=== PATIENT | female | born 1935 | race African-American/Black ===

== ENCOUNTER 2019-01-15 11:13 | Inpatient (IN) | payer OTHER ==
[~2019-01-15] VITALS: Ht 177.8 cm; Wt 86.0 kg
[2019-01-15] VITALS (23 sets, daily range): BP systolic 112–224; BP diastolic 60–93
[2019-01-15] MEDS ORDERED: LORazepam 2MG/ML-1ML VIAL ONE (11:43)
[2019-01-15] MEDS ORDERED: SUCCINYLCHOLINE CHLORIDE 20 MG/ML 10ML VIAL IV ONE (11:44)
[2019-01-15] MEDS ORDERED: MIDAZOLAM DRIP 50 mg/50mL 50 ML IV ONE (11:44)
[2019-01-15] MEDS ORDERED: ETOMIDATE (2MG/ML) 20ML VIAL IV ONE (11:44)
[2019-01-15 12:06] LABS: Basophils # (auto) 0 uL; Eosinophils # (auto) 0 uL; Hematocrit 45.1 % (36.0-46.0); Hemoglobin 14.3 g/dL (12.2-16.2); Lymphocytes # (auto) 1.1 uL; Mean Corpuscular Hgb Conc. 31.8 g/dL (32.0-36.0); Monocytes % (auto) 11.7 % (0.0-12.0)
[2019-01-15 12:08] LABS: Basophils % (auto) 0.1 % (0.0-2.0); Lymphocytes % (auto) 8.6 % (10.0-50.0); Mean Corpuscular Hemoglobin 25.1 pg (28.0-32.0); Monocytes # (auto) 1.5 uL; Neutrophils # (auto) 9.9 uL; Neutrophils % (auto) 79.6 % (37.0-80.0); Nucleated Red Blood Cells % 0.2 %; Platelet Count (auto) 145 10^3/uL (140-450); Red Blood Cells 5.71 10^6/uL (4.0-5.20); Red Cell Distribution Width 14.8 % (11.8-14.3); White Blood Cell 12.4 10^3/uL (4.4-10.8)
[2019-01-15 12:27] LABS: Lactic Acid w/Reflex 7.6 mmol/L (0.4-2.0)
[2019-01-15] MEDS ORDERED: cefTRIAXone 1GM/50ML D5W 50 ML IV ONE ×2 (12:30→15:30)
[2019-01-15 12:35] LABS: INR 1.04 (0.9-1.15); Partial Thromboplastin Time 24.8 sec (23.64-32.05)
[2019-01-15 12:54] LABS: Anion Gap 18 (5-15); Blood Urea Nitrogen 26 mg/dL (7-18); Carbon Dioxide 19 mmol/L (21-32); Chloride 101 mmol/L (98-107); Glucose 199 mg/dL (74-106); Potassium 3.1 mmol/L (3.5-5.1); Sodium 138 mmol/L (136-145)
[2019-01-15 12:55] LABS: Alanine Aminotransferase 23 U/L (13-56); Albumin 4.2 g/dL (3.4-5.0); Alkaline Phosphatase 88 U/L (45-117); Aspartate Aminotransferase 33 U/L (15-37); BUN/Creatinine Ratio 12.9; Bilirubin, Total 1.4 mg/dL (0.2-1.0); Calcium 9.8 mg/dL (8.5-10.1); GFR African American 30 mL/min; GFR Non-African American 25 mL/min; Magnesium 1.6 mg/dL (1.6-2.6)
[2019-01-15 12:56] LABS: Blood Alcohol < 3.0 mg/dL (0-5)
[2019-01-15] MEDS ORDERED: GABA100C9 PO (13:12)
[2019-01-15] MEDS ORDERED: METH500T6 PO (13:12)
[2019-01-15] MEDS ORDERED: LISI10TA6 (13:12)
[2019-01-15] MEDS ORDERED: SULFAMETHOXAZOLE-TMP (13:12)
[2019-01-15] MEDS ORDERED: [UNRECOGNIZED DRUG - CODE] (13:12)
[2019-01-15] MEDS ORDERED: MAGN250T13 (13:12)
[2019-01-15] MEDS ORDERED: METO-159 (13:12)
[2019-01-15] MEDS ORDERED: PROAIR (13:12)
[2019-01-15] MEDS ORDERED: OXYB5TAB61 (13:12)
[2019-01-15] MEDS ORDERED: THEO400T8 (13:12)
[2019-01-15] MEDS ORDERED: LOVA40TA72 (13:12)
[2019-01-15] MEDS ORDERED: ALLO100T (13:12)
[2019-01-15] MEDS ORDERED: ESCI10TA53 (13:12)
[2019-01-15] MEDS ORDERED: SODIUM CHLORIDE 0.9% 2,000 ML IV ONE (13:15)
[2019-01-15] MEDS ORDERED: PROPOFOL 100 ML IV ONE (13:52)
[2019-01-15] MEDS ORDERED: PROPOFOL 10 MG/ML 20 ML IV ONE (14:00)
[2019-01-15 14:26] LABS: Urine Amorphous Crystal FEW /hpf (None Seen); Urine Bacteria MOD /hpf (None Seen); Urine Blood 2+ /uL (Negative); Urine Hyaline Cast MOD /lpf (0 - 2); Urine Mucus FEW (None Seen); Urine Specific Gravity 1.012 (1.001-1.035); Urine WBC 137 /hpf (0 - 5); Urine WBC Clumps PRESENT /hpf (None Seen)
[2019-01-15 15:02] LABS: Amphetamine Screen, Urine NEGATIVE (NEGATIVE); Barbiturate Scree,Urine NEGATIVE (NEGATIVE); Benzodiazephine Screen, Urine POSITIVE (NEGATIVE); Cannabinoid Screen, Urine NEGATIVE (NEGATIVE); Cocaine Screen, Urine NEGATIVE (NEGATIVE); Opiate Scree,Urine NEGATIVE (NEGATIVE); Phencyclidine Screen, Urine NEGATIVE (NEGATIVE)
[2019-01-15] MEDS ORDERED: MORPHINE SULFATE 4 MG/ML SYR/VIAL IV PRN (15:30)
[2019-01-15] MEDS ORDERED: PROMETHAZINE HCL 25 MG/ML 1ML IV PRN (15:30)
[2019-01-15] MEDS ORDERED: METOPROLOL TARTRATE 25 MG TAB NG SCH (15:30)
[2019-01-15] MEDS ORDERED: LACTULOSE 20Gm/30ML SOLN PO PRN (15:30)
[2019-01-15] MEDS ORDERED: DEXTROSE (50%) 50ML SYRG IV PRN (15:30)
[2019-01-15] MEDS ORDERED: LORazepam 2MG/ML-1ML VIAL IV PRN ×2 (15:30)
[2019-01-15] MEDS ORDERED: NITROGLYCERIN 0.4 MG SL TAB SL PRN (15:30)
[2019-01-15] MEDS ORDERED: MORPHINE SULF INJ 2 MG/ML SYRINGE 1ML IV PRN (15:30)
[2019-01-15] MEDS ORDERED: ACETAMINOPHEN 650 MG RECT SUPP PR ONE ×2 (15:31→15:45)
[2019-01-15 16:22] LABS: Salicylate < 1.7 mg/dL (2.8-20.0)
[2019-01-15 16:28] LABS: Acetaminophen < 2.0 ug/mL (10-30)
--- NOTE | 2019-01-15 17:55 | NUR ---
Pt being admitted to ICU: BREANNA MONTEZ admitted to ICU via gurney on desk monitor, and portable 02. Patient transfered to bed, connected to ICU monitoring & on ventilator, and weighed by [facility]. NOTE: Patient intubated and sedated, no family at bedside. See Physical assessment for further details. Padded rails on bed.
[2019-01-15] MEDS: SODIUM CHLORIDE 0.9% 1,000 ML IV SCH (18:35)
[2019-01-15] MEDS: ACCU-CHEK COMFORT CURVE STRIP VI SCH (18:47)
[2019-01-15] MEDS: InsuLIN REG 1unit/0.01ml Soln (100units/ml) SC SCH (18:48)
[2019-01-15] MEDS: MIDAZOLAM DRIP 50 mg/50mL 50 ML IV SCH (19:04)
--- NOTE | 2019-01-15 19:06 | NUR ---
Endorsed care to ABHISHEK Delgado.
[2019-01-15] MEDS: PROPOFOL 100 ML IV SCH (20:23)
--- NOTE | 2019-01-15 20:50 | NUR ---
CENTRAL LINE IN THE LEFT INTRAJUGULAR VEIN INSERTED ASEPTICALLY BY DR. GRICELDA FARRIS ASSISTED BY DR. Rossy MELTON'Shante BY XRAY TO CHECK FOR PLACEMENT.
--- NOTE | 2019-01-15 22:15 | NUR ---
BLOOD DRAW FROM THE CENTRAL LINE DONE AND SPECIMEN SENT TO LAB.
[2019-01-15] MEDS: METOPROLOL TARTRATE 25 MG TAB PO SCH (22:20)
--- NOTE | 2019-01-15 23:09 | NUR ---
HYGIENE COMPLETE LINENS CHANGED. REPOSITIONED FOR COMFORT.
[2019-01-16] VITALS (84 sets, daily range): BP systolic 71–195; BP diastolic 49–93
--- NOTE | 2019-01-16 00:07 | NUR ---
TEMP 100.2, COOLING MEASURES DONE
[2019-01-16] MEDS ORDERED: ALBUTEROL SULF 2.5 MG/0.5ML(0.5%) NEB SOLN NEB PRN (00:45)
--- NOTE | 2019-01-16 00:47 | NUR ---
DR. HASKINS AT BEDSIDE
[2019-01-16 04:36] LABS: Basophils # (auto) 0 uL; Eosinophils # (auto) 0 uL; Lymphocytes # (auto) 0.7 uL; Monocytes # (auto) 1.1 uL
[2019-01-16 04:38] LABS: Hematocrit 37.4 % (36.0-46.0); Lymphocytes % (auto) 7.4 % (10.0-50.0); Mean Corpuscular Hemoglobin 25.4 pg (28.0-32.0); Mean Corpuscular Hgb Conc. 32.2 g/dL (32.0-36.0); Mean Corpuscular Volume 78.7 fL (80.0-100.0); Monocytes % (auto) 10.8 % (0.0-12.0); Neutrophils % (auto) 81.8 % (37.0-80.0); Platelet Count (auto) 90 10^3/uL (140-450); Red Blood Cells 4.75 10^6/uL (4.0-5.20); Red Cell Distribution Width 14.7 % (11.8-14.3); White Blood Cell 9.8 10^3/uL (4.4-10.8)
[2019-01-16 04:53] LABS: Albumin 3.1 g/dL (3.4-5.0); Calcium 8.6 mg/dL (8.5-10.1)
[2019-01-16 04:55] LABS: BUN/Creatinine Ratio 19.3
[2019-01-16 04:58] LABS: Bilirubin, Total 0.8 mg/dL (0.2-1.0); Total Protein 5.9 g/dL (6.4-8.2)
[2019-01-16 05:10] LABS: Potassium 2.9 mmol/L (3.5-5.1)
--- NOTE | 2019-01-16 05:21 | NUR ---
returned call Alis ANTOINE returned call, updated on patient status and reason for call re: k 2.9, temp 101.1, orders received. Continue care.
[2019-01-16] MEDS ORDERED: ACETAMINOPHEN 650 mg PER 20 mL UD GT PRN (05:30)
[2019-01-16] MEDS: ACCU-CHEK COMFORT CURVE STRIP VI SCH ×4 (05:37→18:06)
--- NOTE | 2019-01-16 05:50 | NUR ---
PAGED THE HOSPITALIST FOR ELEVATED BP. AWAITING CALL BACK.
--- NOTE | 2019-01-16 05:53 | NUR ---
CXR RESULT JUST CAME OUT AFTER PLACEMENT OF LEFT IJ CENTRAL LINE AND REFERRED RESULT, HE SAID , PREPARE THE KIT AND HE WILL INSERT ANOTHER LINE.
[2019-01-16] MEDS: InsuLIN REG 1unit/0.01ml Soln (100units/ml) SC SCH ×4 (06:00→18:00)
[2019-01-16] MEDS: POTASSIUM CHL 20MEQ/100ML 100 ML IV SCH ×3 (06:08→10:19)
--- NOTE | 2019-01-16 06:45 | NUR ---
DR. FARRIS AT BEDSIDE FOR CENTRAL LINE PLACEMENT.
--- NOTE | 2019-01-16 07:30 | NUR ---
REPORT RECEIVED FROM SPINDLE MAKER NURSE. PATIENT RESTING IN BED INTUBATED AND SEDATED. RESPIRATIONS EVEN AND UNLABORED. NO SIGNS IF ACUTE DISTRESS NOTED. DR DUBON AT BEDSIDE FOR CENTRAL LINE PLACEMENT.
--- NOTE | 2019-01-16 08:00 | NUR ---
TELEPHONE CONSENTS OBTAINED FROM PT'S DAUGHTERS MARIELLA AND BREANNA RENE WITNESSED BY LEONARD AND LUIS FERNANDO GORDON.
[2019-01-16] MEDS: cefTRIAXone 1GM/50ML D5W 50 ML IV SCH (08:41)
[2019-01-16] MEDS ORDERED: ENOXAPARIN SOD 40 MG/0.4 ML SYRINGE SC SCH (10:00)
[2019-01-16] MEDS: PROPOFOL 100 ML IV SCH ×2 (10:14→22:28)
[2019-01-16] MEDS: SODIUM CHLORIDE 0.9% 1,000 ML IV SCH ×3 (10:14→21:04)
[2019-01-16] MEDS: METOPROLOL TARTRATE 25 MG TAB PO SCH ×2 (10:23→22:28)
[2019-01-16] MEDS: NITROGLYCERIN 0.2MG/HR TOPICAL PATCH TD SCH (10:34)
--- NOTE | 2019-01-16 11:45 | NUR ---
BED LABORER AT BEDSIDE.
--- NOTE | 2019-01-16 12:25 | NUR ---
EEG COMPLETED AT BEDSIDE. ABHISHEK WILLIAMSON.
--- NOTE | 2019-01-16 13:38 | NUR ---
DR LAKE AT BEDSIDE TO ASSESS PATIENT AND DISCUSS PLAN OF CARE. MD INFORMED OF PATIENTS IV STATUS. PER MD OBTAIN PICC LINE CONSULT. MD ADJUST ANTIBIOTICS, ALL ORDERS NOTED IN CHART.
--- NOTE | 2019-01-16 14:36 | NUR ---
2 NURSE CONSENT FROM DAUGHTER MARIELLA VIA TELEPHONE FOR PICC LINE PLACEMENT.
[2019-01-16 14:44] LABS: INR 1.04 (0.9-1.15)
--- NOTE | 2019-01-16 14:57 | NUR ---
DR MERA AT BEDSIDE TO ASSESS PATIENT AND DISCUSS PLAN OF CARE.
[2019-01-16] MEDS ORDERED: GENTAMICIN PER PHARMACY 0 ML IV SCH (15:00)
[2019-01-16] MEDS ORDERED: GENTAMICIN SULFATE 160 MG in D5W 5% 100 ML IV ONE (15:00)
--- NOTE | 2019-01-16 16:00 | NUR ---
REMOVED NITRO PATCH FROM RIGHT ARM DUE TO DECREASED BLOOD PRESSURE. WILL CONTINUE TO MONITOR.
--- NOTE | 2019-01-16 18:45 | NUR ---
PICC LINE NURSE AT BEDSIDE
[2019-01-16] MEDS: MIDAZOLAM DRIP 50 mg/50mL 50 ML IV SCH (19:04)
--- NOTE | 2019-01-16 19:30 | NUR ---
CARE ASSUMED. ASSESSMENT: VENTED AND SEDATED ON DIPRIVAN AT 17 MCG/KG/MIN., VENT - 30% FIO2, PEEP +, RATE 14/AC MODE. SATS 97%. LUNG - CLEAR LEFT LUNG FIELD, COARSE RIGHT LOWER BASE. ETT SECRETIONS - THICK, LIGHT CREAMY, GREEN SECRETIONS. FOUL SMELL ORAL SECRETIONS. CARDIAC - HR 89, SINUS, SBP 110'S. NS AT 100CC/HR G.I - NGT TO LIS WITH CLEAR DRAINAGE PRESENT. HYPOACTIVE BOWEL SOUNDS. NO B.M TONIGHT G.U - GODWIN - JANICE, CLEAR URINE. SKIN - COOL TO TOUCH. TEMP 100.4 RECTAL PICC LINE NURSE IN ROOM. IV SITE TO RAC #20, LEAKING, IV SITE TO LH #20 PUFFY. WILL DISCONTINUE WHEN PICC IN PLACE. WILL CONTINUE TO MONITOR
[2019-01-16] MEDS ORDERED: LIDOCAINE 1% (LOCAL ANESTH.) PF 5ml SDV ID ONE (19:45)
--- NOTE | 2019-01-16 20:18 | NUR ---
PICC line placement Patient/Patient significant other educated on need for PICC line placement. All risks and benefits explained and all questions and concerns addressed prior to procedure. Noted past medical history and allergies with no contraindications. INR and Plt counts within acceptable range. 5 fr PICC line inserted via brachial vein using [employer] US and Tip Location System. Sterile technique with maximum barrier precautions utilized. Blood return obtained from each of triple lumens and each flushed easily with NS using proper technique. PICC secured with Stat-lock; biodisc and occlusive dressing applied. Stat portable chest x-ray obtained for PICC tip placement. *Baseline Arm Circumference 37cm
--- NOTE | 2019-01-16 20:18 | NUR ---
OK to use PICC line Xray completed. .
--- NOTE | 2019-01-16 20:30 | NUR ---
PROPOFOL AND NS TRANSFERRED TO PICC LINE TO LAC.
[2019-01-16] MEDS: SODIUM CHLOR 0.9% PF (SALINE LOCK) 10ML VIAL/SYR IV SCH (21:52)
--- NOTE | 2019-01-16 22:30 | NUR ---
IV SITE TO RAC DISCONTINUED
--- NOTE | 2019-01-16 23:30 | NUR ---
CRITICAL - TROPONIN - 1.23,ELEVATED. ELINA GARCIA NOTIFIED.
[2019-01-17] VITALS (95 sets, daily range): BP systolic 110–180; BP diastolic 55–123
[2019-01-17] MEDS: SODIUM CHLORIDE 0.9% 1,000 ML IV SCH ×2 (03:16→14:50)
[2019-01-17 04:43] LABS: Basophils # (auto) 0 uL; Basophils % (auto) 0.1 % (0.0-2.0); Eosinophils # (auto) 0 uL; Lymphocytes # (auto) 0.8 uL; Lymphocytes % (auto) 9.7 % (10.0-50.0); Monocytes # (auto) 0.8 uL
[2019-01-17 04:45] LABS: Eosinophils % (auto) 0.3 % (0.0-7.0); Hematocrit 29.2 % (36.0-46.0); Hemoglobin 9.6 g/dL (12.2-16.2); Mean Corpuscular Hemoglobin 25.7 pg (28.0-32.0); Monocytes % (auto) 8.9 % (0.0-12.0); Neutrophils # (auto) 6.9 uL; Platelet Count (auto) 76 10^3/uL (140-450); Red Blood Cells 3.75 10^6/uL (4.0-5.20); Red Cell Distribution Width 14.7 % (11.8-14.3); White Blood Cell 8.6 10^3/uL (4.4-10.8)
[2019-01-17 05:42] LABS: Anion Gap 10 (5-15); BUN/Creatinine Ratio 23.3; Blood Urea Nitrogen 35 mg/dL (7-18); Carbon Dioxide 20 mmol/L (21-32); Chloride 111 mmol/L (98-107); GFR African American 43 mL/min; GFR Non-African American 35 mL/min; Glucose 89 mg/dL (74-106); Potassium 3.3 mmol/L (3.5-5.1); Sodium 141 mmol/L (136-145)
[2019-01-17 05:43] LABS: Calcium 8.2 mg/dL (8.5-10.1)
[2019-01-17] MEDS: InsuLIN REG 1unit/0.01ml Soln (100units/ml) SC SCH ×4 (05:55→18:20)
[2019-01-17] MEDS: ACCU-CHEK COMFORT CURVE STRIP VI SCH ×4 (05:55→18:39)
--- NOTE | 2019-01-17 06:13 | NUR ---
REPORT TO CORETTA WEISS.
--- NOTE | 2019-01-17 06:15 | NUR ---
OPENING SHIFT NOTE REPORT RECEIVED FROM ASSOCIATE PROFESSOR OF KINESIOLOGY RN, MORNING ASSESSMENT PERFORMED AND DOCUMENTED. PATIENT MECHANICALLY VENTILATED, RESPIRATIONS EVEN AND UNLABORED - BILATERAL UPPER AND LOWER LUNG SOUNDS CLEAR. PATIENT RESPONSIVE TO LIGHT PAIN, FACIAL GRIMACING WHEN PERFORMING COMFORT MEASURES. VSS AND DOCUMENTED. BOWEL SOUNDS HYPOACTIVE, GODWIN CATHETER PATENT AND DRAINING CLEAR/YELLOW URINE TO GRAVITY. SCD'S ACTIVE - SEIZURE, FALL AND SAFETY PRECAUTIONS IN PLACE.
--- NOTE | 2019-01-17 08:22 | NUR ---
PAGED CARDIOLOGY DR CURRY TO REMIND OF CARDIOLOGY CONSULT, AWAITING RESPONSE.
[2019-01-17] MEDS: cefTRIAXone 1GM/50ML D5W 50 ML IV SCH (08:31)
[2019-01-17] MEDS: SODIUM CHLOR 0.9% PF (SALINE LOCK) 10ML VIAL/SYR IV SCH ×2 (08:33→22:00)
[2019-01-17] MEDS: METOPROLOL TARTRATE 25 MG TAB PO SCH ×2 (08:33→23:49)
[2019-01-17] MEDS: NITROGLYCERIN 0.2MG/HR TOPICAL PATCH TD SCH (08:38)
--- NOTE | 2019-01-17 08:53 | NUR ---
RETURN CALL FROM CARDIOLOGY/CONTACT DR HASKINS RETURN CALL FROM DR CURRY - DR CURRY WILL SEE PATIENT LATER TODAY. SPOKE WITH DR HASKINS, UPDATED ON PATIENT'S STATUS, LABS, MORNING, DRIPS AND PENDING CARDIOLOGY CONSULT. NO ORDERS GIVEN AT THIS TIME.
[2019-01-17] MEDS: PROPOFOL 100 ML IV SCH (09:19)
[2019-01-17] MEDS ORDERED: ENOXAPARIN SOD 40 MG/0.4 ML SYRINGE SC SCH (10:00)
--- NOTE | 2019-01-17 11:14 | NUR ---
NUTRITION ASSESSMENT NOTES Please refer to link notes of nutrition screen form filed under the intervention section of the plan of care for further details. Est. Needs: 1650 kcal to 2050 kcal (20-25 kcal/kgBW), 66 gms to 83 gms pro (0.8-1.0 gms/kgBW). Will continue to monitor pertinent labs and reassess nutrient need prn Thank you. Addendum: 01/17/19 at [address] Amended: Links added.
--- NOTE | 2019-01-17 11:43 | NUR ---
Family updated on pt status Family of BREANNA MONTEZ updated on patient's status and condition after password verification. All questions and concerns addressed. Sebastián, patient's son verbalized understanding.
--- NOTE | 2019-01-17 11:45 | NUR ---
WOUND CARE NOTE: IN TO SEE PATIENT AT THIS TIME PER WOUND CARE CONSULT REQUEST. PATIENT WAS ADMITTED TO [facility] WITH DIAGNOSIS OF SEPSIS, METABOLIC ENCEPHALOPATHY. PATIENT IS INTUBATED, SEDATED, APPEARS TO BE IN NO PAIN USING DICKENS-PAUL PAIN SCALE. PATIENT IS NOTED TO HAVE VITILIGO, WITH HYPOPIGMENTATION TO VARIOUS AREAS ON FACE/TRUNK, LIMBS. SHE HAS NO WOUNDS, OR NON BLANCHABLE SKIN AREAS. PATIENT IS WOUND FREE. SHE WOULD RECOMMEND WITH FREQUENT TURN SCHEDULE Q 2 HOURS, PRN CONDITION PERMITS, WITH PRESSURE REDISTRIBUTION USING PILLOWS/WEDGES, BID/PRN APPLICATION WITH MOISTURE BARRIER CREAM, OPTIFOAM GENTLE SACRAL DRESSING, DIETARY CONSULT FOR LOW CASSANDRA/INTUBATION, CONTINUED MONITORING BY WOUND CARE TEAM. SKIN/WOUND CARE PLAN IMPLEMENTED.
--- NOTE | 2019-01-17 13:50 | NUR ---
COMFORT PATIENT CLEANSED, PARTIAL BEDDING CHANGED AND GOWN. PATIENT TOLERATED WELL.
--- NOTE | 2019-01-17 14:13 | NUR ---
[facility] UPDATE CALL RECEIVED FROM [facility] CASE MANAGEMENT AT [facility] TO OBTAIN PATIENT STATUS, VS AND DRIPS.
--- NOTE | 2019-01-17 16:27 | NUR ---
FAMILY AT BEDSIDE/JEWELRY RETURNED TO FAMILY PATIENT'S DAUGHTER AND GRANDDAUGHTER AT BEDSIDE, UPDATED ON PATIENT'S STATUS. BOTH VERBALIZED UNDERSTANDING. ALL PATIENT'S JEWELRY RETURNED TO FAMILY FOR SAFE KEEPING.
[2019-01-17] MEDS ORDERED: GENTAMICIN SULFATE 160 MG in D5W 5% 100 ML IV SCH (16:30)
--- NOTE | 2019-01-17 17:18 | NUR ---
CARDIOLOGY/HOSPITALIST AT BEDSIDE BOTH DOCTOR'S UPDATED ON PATIENT'S STATUS - BOTH DOCTOR'S DISCUSSED PLAN OF CARE WITH DAUGHTER'S AND GRANDDAUGHTER. ALL VERBALIZED UNDERSTANDING. AFTER REVIEWING CHART AND ASSESSING PATIENT, DR CURRY AUTHORIZED CPAP TRIAL TOMORROW MORNING. CARDIOLOGY WORKUP AT A LATER TIME.
[2019-01-17] MEDS: MIDAZOLAM DRIP 50 mg/50mL 50 ML IV SCH (19:04)
--- NOTE | 2019-01-17 19:14 | NUR ---
END OF SHIFT REPORT PATIENT CARE ENDORSED TO WEB MASTER RN. VSS AND DOCUMENTED.
--- NOTE | 2019-01-17 19:45 | NUR ---
ASSESSMENT: REMAINS VENTILATED AND SEDATED ON PROPOFOL. RESPONDS TO NOXIOUS STIMULI, GRIMACES, (+) COUGH. PUPILS 3+ BILAT. LUNGS COARSE BILATERALLY. ETT - CREAMY, LIGHT YELLOW, MODERATE AMT. MODERATE AMT. ORAL SECRETIONS. ORAL CARE PROVIDED. REPOSITIONED. CARDIAC - HR 70-80'S, SBP 150'S. NO ECTOPY ABDOMEN - LARGE, (+) B.S. NO B.M TONIGHT. G.U - GODWIN CATH, CLEAR YELLOW URINE. IV - NS CONTINUES AT 100CC/HR AND PROPOFOL THRU PICC LINE TO ADRIENNE. SKIN - INTACT. WILL CONTINUE TO MONITOR.
--- NOTE | 2019-01-17 20:00 | NUR ---
PULSE - LEFT BELOW KNEE AREA WITH DOPPLER Addendum: 01/18/19 at 0029 by Nkechi Stiles RN WRONG ENTRY
[2019-01-17] MEDS: POTASSIUM CHL 20MEQ/100ML 100 ML IV SCH (23:51)
[2019-01-17] MEDS: MAGNESIUM SULFATE 1GM/100ML 100 ML IV SCH (23:51)
[2019-01-18] VITALS (94 sets, daily range): BP systolic 142–196; BP diastolic 58–107
[2019-01-18] MEDS: POTASSIUM CHL 20MEQ/100ML 100 ML IV SCH (00:58)
[2019-01-18] MEDS: MAGNESIUM SULFATE 1GM/100ML 100 ML IV SCH ×2 (00:58→02:09)
--- NOTE | 2019-01-18 02:00 | NUR ---
EYES OPEN, DOES NOT TRACK, DOES NOT FOLLOW COMMANDS AT THIS TIME. MOVES FEET SPONTANEOUSLY.
[2019-01-18] MEDS: SODIUM CHLORIDE 0.9% 1,000 ML IV SCH ×2 (04:21→13:28)
[2019-01-18 04:28] LABS: Basophils # (auto) 0 uL; Basophils % (auto) 0.4 % (0.0-2.0); Eosinophils # (auto) 0.1 uL; Eosinophils % (auto) 0.9 % (0.0-7.0); Hemoglobin 9.1 g/dL (12.2-16.2); Lymphocytes # (auto) 0.7 uL; Lymphocytes % (auto) 9.1 % (10.0-50.0); Mean Corpuscular Hemoglobin 25.8 pg (28.0-32.0); Mean Corpuscular Hgb Conc. 32.5 g/dL (32.0-36.0); Mean Corpuscular Volume 79.4 fL (80.0-100.0); Monocytes # (auto) 0.6 uL; Monocytes % (auto) 8.4 % (0.0-12.0); Neutrophils # (auto) 6.2 uL; Neutrophils % (auto) 81.2 % (37.0-80.0); Platelet Count (auto) 73 10^3/uL (140-450); Red Blood Cells 3.53 10^6/uL (4.0-5.20); Red Cell Distribution Width 15.3 % (11.8-14.3); White Blood Cell 7.6 10^3/uL (4.4-10.8)
[2019-01-18 04:40] LABS: INR < 0.93 (0.9-1.15); Partial Thromboplastin Time 27.9 sec (23.64-32.05)
[2019-01-18 04:48] LABS: Albumin 2.4 g/dL (3.4-5.0); BUN/Creatinine Ratio 29.9; Calcium 8.5 mg/dL (8.5-10.1); Potassium 3.8 mmol/L (3.5-5.1)
[2019-01-18 04:51] LABS: Bilirubin, Total 0.5 mg/dL (0.2-1.0); Total Protein 5.2 g/dL (6.4-8.2)
--- NOTE | 2019-01-18 05:30 | NUR ---
COMPLETE BED BATH. ORAL CARE, NOTED LARGE SORE TO RIGHT SIDE OF TONGUE.
[2019-01-18] MEDS: ACCU-CHEK COMFORT CURVE STRIP VI SCH ×4 (05:49→18:00)
[2019-01-18] MEDS: InsuLIN REG 1unit/0.01ml Soln (100units/ml) SC SCH ×4 (05:49→18:00)
--- NOTE | 2019-01-18 06:30 | NUR ---
CRITICAL - TROPONIN 0.524, DR. CURRY AWARE OF ELEVATED TROPONIN. VALUES TRENDING DOWN AT THIS TIME.
--- NOTE | 2019-01-18 07:19 | NUR ---
Respiratory note: RECEIVED PATIENT ON V21 V200 VENT ORALLY INTUBATED WITH AN 8.0 ETT SECURED VIA ITZEL AT THE 24CM MARKING AT THE LIP, AND MECHANICALLY VENTILATED WITH THE CHARTED SETTINGS. SPO2 97%, LUNG SOUNDS DIM T/O, SCANT AMOUNT OF THIN LIGHT AMEZQUITA SECRETIONS WHEN SUCTIONED. SKIN IS WARM/DRY TO THE OTUCH AND IS INTACT NEAR ITZEL SITE. THERE IS A SORE ON THE RIGHT SIDE OF PATIENTS TONGUE, ETT MOVED TO LEFT SIDE OF MOUTH. RN ONOFRE AWARE OF SORE. THERE IS AN OGT IN PLACE AND SECURED TO THE ETT. NON PITTING EDEMA NOTED IN UPPER EXTREMITIES. NO NEW CXR TO ASSESS AT THIS TIME. PATIENT IS UNRESPONSIVE TO VERBAL STIMULI, BUT DOES SHOW RESPONSE TO TACTILE STIMULI AND IS SEDATED ON A PROPOFOL DRIP. SHE IS RESTING COMFORTABLY AND TOLERATING VENT WELL. VENT PLUGGED INTO RED OUTLET AND ALL ALARMS ARE SET AND AUDIBLE. WILL CONTINUE TO ASSESS PATIENT WELL VENTILATOR FUNCTION. PRN MED-NEB NOT INDICATED.
--- NOTE | 2019-01-18 07:50 | NUR ---
ASSESSMENT PT RESTING IN BED WITH EYES CLOSED, RESPONDS TO PAINFUL STIMULI BUT NOT VERBAL. PT SEDATED ON DIPRIVAN DRIP WHILE INTUBATED. CURRENT VENT SETTINGS OF : 8 FR ETT /24 AT THE LIP, TV 500, AC 16, 30% FIO2 AND PEEP OF 5. LUNGS CLEAR THROUGHOUT. SUCTIONED ORALLY AND VIA ETT FOR CLEAR SECRETIONS. TELE SR 70. ABD SOFT WITH + BOWEL SOUNDS. LAST BM WAS YESTERDAY. GODWIN CATHETER DRAINING CLEAR YELLOW URINE. SCDS IN PLACE TO BLE. PT WITH IVF TO LUE 3 LUMEN PICC LINE, SITE BENIGN. . SACRUM CLEAR AND OPTIFOAM DRESSING IN PLACE. SORE NOTED ON TONGUE, PINK AND YELLOW IN COLOR. CONTINUE TO MONITOR.
--- NOTE | 2019-01-18 07:50 | NUR ---
PT TEACHING PT UNABLE TO BENEFIT FROM PT TEACHING AT THIS TIME SHE IS SEDATED WHILE ON THE VENTILATOR. Addendum: 01/18/19 at 1144 by Octavia Sanchez RN Amended: Links added.
--- NOTE | 2019-01-18 09:00 | NUR ---
DIPDEBBIE OFF PREP FOR THE CPAP TRIAL WHICH HAS BEEN OKAYED THIS AM BY DR HASKINS.
[2019-01-18] MEDS: cefTRIAXone 1GM/50ML D5W 50 ML IV SCH (10:15)
[2019-01-18] MEDS: SODIUM CHLOR 0.9% PF (SALINE LOCK) 10ML VIAL/SYR IV SCH ×2 (10:15→22:24)
[2019-01-18] MEDS: METOPROLOL TARTRATE 25 MG TAB PO SCH ×2 (10:16→22:25)
[2019-01-18] MEDS: NITROGLYCERIN 0.2MG/HR TOPICAL PATCH TD SCH (10:17)
--- NOTE | 2019-01-18 12:00 | NUR ---
PT STILL NOT AWAKE ENOUGH FOR THE CPAP TRIAL. CONTINUE TO MONITOR.
[2019-01-18] MEDS ORDERED: hydrALAZINE HCL 20 MG/ML VL ONE (14:50)
--- NOTE | 2019-01-18 14:58 | NUR ---
MEDICATED WITH HYDRALAZINE 10MG IV PER PRN ORDER FROM DR HASKINS. BP OF 185/67. CONTINUE TO MONITOR. Addendum: 01/18/19 at 2015 by Octavia Sanchez RN DISCUSSED WITH DR HASKINS THE FACT THAT PT STILL NOT WAKING UP ENOUGH FOR CPAP AND THAT SHE IS MOVINGHER LEFT SIDE BUT NOT HER RIGHT. HE ASSESSED CHA PT AND FOUND THE SAME BUT WAS ABLE TO GET HER TO FOLLOW SOME SIMPLE COMMANDS. HE ASKED THAT I CONTACT DR MERA TO SEE IF HE IS OKAY WITH CPAP TRIAL FOR THE PT OR IF HE WANTS A CT OF THE HEAD. PAGED DR MERA.
[2019-01-18] MEDS ORDERED: MIDAZOLAM HCL 1MG/1ML-2 ML VIAL IV PRN (15:00)
--- NOTE | 2019-01-18 17:13 | NUR ---
RECEIVED A CALL FROM DR MERA AND UPDATED HIM ON THE PT'S CURRENT CONDITION AND HE ORDERED A CT OF THEHEAD WITHOUT CONTRAST.
--- NOTE | 2019-01-18 17:44 | NUR ---
Respiratory note: CALLED TO BEDSIDE TO TRANSPORT PT TO CT. NOW TRANSPORTING PT TO CT WITH RN AND STARCH DUMPER. MANUALLY VENTILATED DURING TRANSPORT VIA AMBU BAG ON 100%. RETURNED TO ROOM AT 1812, PLACED BACK ON VENT, SAME SETTINGS. ET TUBE REMAINS SECURED.
--- NOTE | 2019-01-18 18:00 | NUR ---
PT TO CT DEPT FOR HEAD CT WITHOUT CONTRAST. PT TRANSPORTED VIA BED WITH PORTABLE ENDLESS TRACK VEHICLE MECHANIC IN PLACE AND BEING MANUALLY VENTILATED BY RT TIKA, AND ACCOMPANIED BY ABHISHEK WINCHESTER. FAMILY IN THE ROOM AND HAVE BEEN UPDAETD ON PT'S CURRENT CONDITION AND POC.
--- NOTE | 2019-01-18 18:51 | NUR ---
PARTIAL LOWER PT WITH PARTIAL LOWER , COMING OUT. REMOVED AND LACED IN A DENTURE CUP AT THE BEDSIDE.
--- NOTE | 2019-01-18 19:02 | NUR ---
[facility] RECEIVED A CALL FROM RADIOLOGY [facility] AND REVIEWED RESULTS OF PT'S HEAD CT WITHOUT CONTRAST. REPORT NOW IN COMPUTER. MARIUSZ MCCLOUD HERE AND MADE AWARE AND ALSO PAGED DR MERA TO NOTIFY. DR MCCLOUD NOTIFIED PT'S DAUGHTERS WHO WERE AT THE PT'S BEDSIDE VISITING.
[2019-01-18] MEDS: PROPOFOL 100 ML IV SCH (19:04)
[2019-01-18] MEDS: MIDAZOLAM DRIP 50 mg/50mL 50 ML IV SCH (19:04)
--- NOTE | 2019-01-18 19:30 | NUR ---
REPORT REPORT GIVEN TO ONOFRE PICKERING RN.
--- NOTE | 2019-01-18 19:35 | NUR ---
PAGED: PAGED PLACE FOR DR. DILL REGARDING POSS HIT PER DR. MCCLOUD PAGED PLACED FOR DR. CURRY REGARDING POSSIBLE NEED FOR YANG AND CAROTID U/S PER DR. MCCLOUD
[2019-01-18] MEDS ORDERED: LISINOPRIL 10 MG TAB PO ONE (20:00)
--- NOTE | 2019-01-18 21:00 | NUR ---
NO CALL BACK FROM DR. CURRY OR LACEY
--- NOTE | 2019-01-18 22:00 | NUR ---
NO CALL BACK FROM DR. MERA REGARDING CT RESULTS.
[2019-01-18] MEDS: hydrALAZINE HCL 25 MG TAB PO SCH (22:25)
[2019-01-19] VITALS (36 sets, daily range): BP systolic 112–194; BP diastolic 56–84
--- NOTE | 2019-01-19 | NUR ---
CONTINUES TO MOVE LEFT SIDE, DOES NOT SHOW ANY MOVEMENT WITH RIGHT EXTREMITIES.
[2019-01-19] MEDS: hydrALAZINE HCL 20 MG/ML VL IV PRN ×2 (01:37→12:43)
[2019-01-19] MEDS: InsuLIN REG 1unit/0.01ml Soln (100units/ml) SC SCH ×4 (01:41→18:00)
[2019-01-19] MEDS: SODIUM CHLORIDE 0.9% 1,000 ML IV SCH ×2 (02:00→09:28)
[2019-01-19 04:42] LABS: Basophils # (auto) 0 uL; Basophils % (auto) 0.2 % (0.0-2.0); Eosinophils # (auto) 0.1 uL; Eosinophils % (auto) 1.1 % (0.0-7.0); Hemoglobin 9.2 g/dL (12.2-16.2)
[2019-01-19 04:44] LABS: Hematocrit 28.3 % (36.0-46.0); Lymphocytes # (auto) 0.7 uL; Lymphocytes % (auto) 7.6 % (10.0-50.0); Mean Corpuscular Hemoglobin 25.7 pg (28.0-32.0); Mean Corpuscular Hgb Conc. 32.7 g/dL (32.0-36.0); Mean Corpuscular Volume 78.6 fL (80.0-100.0); Monocytes # (auto) 0.8 uL; Monocytes % (auto) 9.6 % (0.0-12.0); Neutrophils # (auto) 7.2 uL; Neutrophils % (auto) 81.5 % (37.0-80.0); Platelet Count (auto) 86 10^3/uL (140-450); Red Cell Distribution Width 14.6 % (11.8-14.3); White Blood Cell 8.8 10^3/uL (4.4-10.8)
[2019-01-19 04:57] LABS: Calcium 8.8 mg/dL (8.5-10.1); Potassium 3.3 mmol/L (3.5-5.1)
[2019-01-19] MEDS: hydrALAZINE HCL 25 MG TAB PO SCH ×3 (06:00→22:00)
[2019-01-19] MEDS: ACCU-CHEK COMFORT CURVE STRIP VI SCH ×4 (06:00→18:00)
--- NOTE | 2019-01-19 07:57 | NUR ---
PT. ABLE TO SQUEEZE RIGHT HAND AND MOVES RIGHT TOES ON COMMANDS
--- NOTE | 2019-01-19 08:27 | NUR ---
MD PHONE CALL: Spoke with Dr. Dennison, states that it is okay to CPAP when patient is awake.
--- NOTE | 2019-01-19 08:30 | NUR ---
INITIAL/ONGOING ASSESSMENT: Patient off of sedation, opens eyes to verbal stimuli, too drowsy to follow commands at this time. After removal of verbal stimulus, patient closes eyes and appears to be sleeping. Will coordinate CPAP trail with RT to be done when patient is fully awake. Noted to have movement to right upper and lower extremities, but is significantly weaker than the left side. Patient does not appear to be in any distress at this time.
[2019-01-19 08:38] LABS: Cholesterol 142 mg/dL (< 200); HDL Cholesterol 48 mg/dL (40-59); LDL Cholesterol 74 mg/dL (< 100); Triglycerides 126 mg/dL (< 150)
--- NOTE | 2019-01-19 10:25 | NUR ---
Respiratory note: placed pt on cpap trial at this time. pt response and is able to follow commands. pt tolerating well. weaning parameters and abg to be obtained. rn aware of changes.
--- NOTE | 2019-01-19 10:48 | NUR ---
Nutrition Consult and Follow-up Notes Wt.: 82.7 kg as of 01/16/19 Pt's intubated, no immediate family member at bedside during rounds earlier. Noted pt's off from sedation, currently NPO with EN support temporarily held this morning for possible CPAP trial. Noted pt's for active Wound, Pulmonary and Iggy/Oncology consults. Est. Needs: 1650 kcal to 2050 kcal (20-25 kcal/kgBW), 66 gms to 83 gms pro (0.8-1.0 gms/kgBW). Will continue to monitor pertinent labs and reassess nutrient need prn Labs: pertinent labs wnl today except for Cl 111 H, K 3.3 L, CO2 20 L; Tpro 5.9 L, Alb 3.1 L Skin: Gilmer scale 12, high risk, skin intact per brilliandeer looper. GI: Pt's no bowel activity since 01/15/19 per brilliandeer looper. PES: Increased nutrient needs r/t current medical condition aeb intubated, sedated, mild hypoalbuminemia, NPO Altered nutrition related lab values r/t current/chronic medical condition aeb hyperchloremia, hypokalemia, hypocapnia, elev. renal labs, Trop I, hypocalcemia, hypocalcemia and mild hypoalbuminemia Will continue to monitor NPO status, skin status, pertinent labs and weight trend. F/u in 2 to 3 days. Rec.: 1.) Advance gradually to oral diet when medically appropriate. 2.) If still NPO in next 36 hrs, consider alternate nutrition support if medically appropriate. 3.) EN support preferred with formula choice of Glucerna 1.2 Vineet @ 60 ml/hr goal rate as tolerated. 4.) If Albumin continues trending down, consider Prostat 1 pkt BID. 5.) Refer to RD for further nutrition educ. and weight monitoring upon discharge. 6.) Continue current plan of care. Thank you for this consult.
[2019-01-19] MEDS: NITROGLYCERIN 0.2MG/HR TOPICAL PATCH TD SCH (11:00)
--- NOTE | 2019-01-19 11:02 | NUR ---
FAMILY: Patient's daughter Raymond at bedside, updated on patient condition. Informed her that patient is stable, and that the POC for today is to perform CPAP trial. Assured her that Dr. Dennison is aware of the CT head results and after assessing her this morning felt as though it was safe to proceed with CPAP trial. Verbalized understanding.
[2019-01-19] MEDS: LISINOPRIL 10 MG TAB PO SCH (11:04)
[2019-01-19] MEDS: cefTRIAXone 1GM/50ML D5W 50 ML IV SCH (11:04)
[2019-01-19] MEDS: ASPirin 81 mg TAB PO SCH (11:05)
[2019-01-19] MEDS: METOPROLOL TARTRATE 25 MG TAB PO SCH ×2 (11:05→22:00)
[2019-01-19] MEDS: SODIUM CHLOR 0.9% PF (SALINE LOCK) 10ML VIAL/SYR IV SCH ×2 (11:05→22:23)
--- NOTE | 2019-01-19 11:20 | NUR ---
Respiratory note: WEANING PARAMETERS OBTAINED. VC 1250, NIF -28.5, RSBI 14, LEAK 250. ABG OBTAINED AND RESULTS WERE GIVEN TO .
--- NOTE | 2019-01-19 11:46 | NUR ---
Respiratory note: PT WAS EXTUBATED PER ORDERS. PT WAS PLACED ON COOL MIST AT 35% 8L/M. HR 100, RR 24, POX 97%, BREATH SOUNDS ARE COARSE. NO STRIDOR NOTED. PT HAS A WEAK COUGH. FAMILY AND RN AT BEDSIDE. WILL CONTINUE TO MONITOR PT.
--- NOTE | 2019-01-19 11:46 | NUR ---
EXTUBATION; Patient extubated by RT, placed on 35% cool mist mask. Patient with no respiratory distress, no stridor. Family present at bedside, instructed to discourage patient from talking for the next 2 hours.
--- NOTE | 2019-01-19 13:57 | NUR ---
assessment Patient is a 83 year old female who is on a vent. Per patients daughter Raymond prior to admission patient lived home with her and functioned independently. Patient was still driving and doing her own shopping. Patient has a cane and fww for home use. Per Raymond family found patient down and called 911 and she was admitted. Patient has an advanced directive and its on file per Raymond. I informed Raymond patients post discharge needs to be determined after extubation and prior to discharge. Raymond verbalized understanding. Addendum: 01/20/19 at 1401 by Rachel CORNEJO Amended: Links added.
--- NOTE | 2019-01-19 14:45 | NUR ---
PAGED; Dr. James paged regarding change in patient condition. Patient has become increasingly tachycardic and is maintaining a respiratory rate of 30, patient remains able to follow commands but has been aphasic since extubation.
--- NOTE | 2019-01-19 14:50 | NUR ---
RETURNED PAGED; Dr. James returned page, updated on patient condition. Informed him that the patient has increased work of breathing, tachycardia, and tachypnea but is maintaining saturations. Order received for ABG and Bipap.
[2019-01-19] MEDS ORDERED: SODIUM BICARBONATE 8.4 % INJ 50ML VIAL IV ONE (16:00)
--- NOTE | 2019-01-19 17:05 | NUR ---
Respiratory note: CHANGED MODE TO CPAP OF 8. PER DR. HASKINS ORDERS. PT TOLERATING WELL. ABG TO BE OBTAINED IN 1 HOUR. NOC RT AWARE OF CHANGES.
[2019-01-19] MEDS ORDERED: LEVOFLOXACIN 750MG 150 ML IV ONE (17:15)
--- NOTE | 2019-01-19 17:33 | NUR ---
MD AT BEDSIDE: Dr. Lorna Angelo at bedside, updated patient's daughter Netha on patient's condition and possibility of need to re-intubate if respiratory status continues to decline. Daughter verbalized understanding.
[2019-01-19] MEDS ORDERED: FUROSEMIDE 20 MG/2 ML VIAL IV ONE (17:45)
[2019-01-19] MEDS: MEROPENEM 1GM IVPB 100 ML IV SCH (18:30)
--- NOTE | 2019-01-19 19:30 | NUR ---
ASSESSMENT: NEURO: EYES OPEN, FOLLOWS SIMPLE COMMANDS. CONTINUOUSLY TRYING TO REMOVE CPAP MASK. ON CPAP 30%, PRESSURE 10, RR 31-33, SATS 97%. LUNGS - CLEAR BILATERALLY. CARDIAC - HR 110, NO ECTOPY, SBP - 158/68. ABDOMEN - LARGE , SOFT, (+) B.S, NO BM AT THIS TIME. GODWIN - CLEAR YELLOW URINE. SKIN WARM AND DRY. IV SITE TO LEFT HAND DISCONTINUED. ORAL CARE, REPOSITION.
[2019-01-19] MEDS ORDERED: POTASSIUM CHL 20MEQ/100ML 100 ML IV ONE (20:00)
--- NOTE | 2019-01-19 20:30 | NUR ---
DR RAHMAN VISITING WITH PATIENT. ORDERS RECEIVED.
[2019-01-19] MEDS: ATORVASTATIN 20 MG TAB PO SCH (22:00)
--- NOTE | 2019-01-19 22:25 | NUR ---
ALL PO MEDS HELD ZAHRA PT. NPO DUE TO DIFFICULTY SWALLOWING D/T STROKE AND NO NGT AVAILABLE. SWALLOW EVAL IN AM
[2019-01-19] MEDS: FONDAPARINUX SOD 2.5mg/0.5ml SYRINGE SC SCH (22:28)
[2019-01-20] VITALS (38 sets, daily range): BP systolic 89–170; BP diastolic 51–90
--- NOTE | 2019-01-20 | NUR ---
AWAKE, FOLLOWS SIMPLE COMMANDS. STRENGTH TO RIGHT HAND CHANGES EVERY TIME NEURO CHECKED.
[2019-01-20] MEDS: MEROPENEM 1GM IVPB 100 ML IV SCH ×3 (01:52→18:30)
[2019-01-20] MEDS: ACCU-CHEK COMFORT CURVE STRIP VI SCH ×4 (01:53→20:08)
[2019-01-20] MEDS: InsuLIN REG 1unit/0.01ml Soln (100units/ml) SC SCH ×4 (01:58→18:30)
--- NOTE | 2019-01-20 03:10 | NUR ---
TEMP 99.9, LARGE AMT. OF ORAL SECRETIONS- THICK AND CLEAR. HR 110'S, SBP 150'S. RR - 29-31, LUNGS CLEAR.
[2019-01-20 04:54] LABS: Basophils # (auto) 0 uL; Basophils % (auto) 0.3 % (0.0-2.0); Eosinophils # (auto) 0.1 uL; Eosinophils % (auto) 1.2 % (0.0-7.0); Hematocrit 28.8 % (36.0-46.0); Hemoglobin 9.3 g/dL (12.2-16.2); Lymphocytes # (auto) 0.7 uL; Lymphocytes % (auto) 8.7 % (10.0-50.0); Mean Corpuscular Hemoglobin 25.8 pg (28.0-32.0); Mean Corpuscular Hgb Conc. 32.4 g/dL (32.0-36.0); Mean Corpuscular Volume 79.8 fL (80.0-100.0); Monocytes # (auto) 1.1 uL; Monocytes % (auto) 13.9 % (0.0-12.0); Neutrophils # (auto) 5.9 uL; Neutrophils % (auto) 75.9 % (37.0-80.0); Nucleated Red Blood Cells % 0.1 %; Platelet Count (auto) 105 10^3/uL (140-450); Red Blood Cells 3.62 10^6/uL (4.0-5.20); Red Cell Distribution Width 15.1 % (11.8-14.3); White Blood Cell 7.8 10^3/uL (4.4-10.8)
[2019-01-20] MEDS: hydrALAZINE HCL 20 MG/ML VL IV PRN (05:00)
[2019-01-20 05:19] LABS: BUN/Creatinine Ratio 21.3; Calcium 9.2 mg/dL (8.5-10.1); Potassium 3.8 mmol/L (3.5-5.1)
[2019-01-20 05:41] LABS: Ferritin 662.3 ng/mL (10-322)
[2019-01-20 05:42] LABS: Folate (Folic Acid) 6.91 ng/mL (5.38-24)
[2019-01-20] MEDS: hydrALAZINE HCL 25 MG TAB PO SCH ×3 (06:00→21:54)
--- NOTE | 2019-01-20 07:15 | NUR ---
REPORT TO CORETTA WEISS
[2019-01-20] MEDS: LEVETIRACETAM INJ 500 MG in D5W 5% 100 ML IV SCH ×2 (09:44→21:52)
[2019-01-20] MEDS: LEVOFLOXACIN 750MG 150 ML IV SCH (09:49)
[2019-01-20] MEDS: SODIUM CHLOR 0.9% PF (SALINE LOCK) 10ML VIAL/SYR IV SCH ×2 (09:55→21:52)
[2019-01-20] MEDS: NITROGLYCERIN 0.2MG/HR TOPICAL PATCH TD SCH (09:56)
[2019-01-20] MEDS: METOPROLOL TARTRATE 25 MG TAB PO SCH ×2 (10:00→21:53)
[2019-01-20] MEDS: LISINOPRIL 10 MG TAB PO SCH (10:00)
[2019-01-20] MEDS: ASPirin 81 mg TAB PO SCH (10:00)
--- NOTE | 2019-01-20 11:17 | NUR ---
CONTACT DR HASKINS NOTIFIED OF MORNING ABG, CXR AND VITAL SIGNS. ORDERS TO PLACE PATIENT ON NASAL CANNULA RECEIVED AND SEE HOW PATIENT TOLERATES. WILL NOTIFY HOSPITALIST AND FIELD CANE SCALER HELPER OF VS.
--- NOTE | 2019-01-20 13:15 | NUR ---
CALL RECEIVED FROM [facility], CASE MANAGEMENT UPDATED ON PATIENT'S STATUS.
--- NOTE | 2019-01-20 13:29 | NUR ---
PENDING RETURN CALL FROM CARDIOLOGY/PAGED RT PAGED DR CURRY TO REQUEST PRN MEDICATION TO DECREASE HEART RATE, PENDING CALL. PAGED R.T. TO REMOVE PATIENT FROM CPAP AND PLACE ON NASAL CANNULA PER DR HASKINS' ORDER.
--- NOTE | 2019-01-20 15:00 | NUR ---
CARDIOLOGY/FAMILY AT BEDSIDE/YANG IN PROCESS 1. DR CURRY AWARE OF PATIENT'S INCREASED HR, NO ORDERS AT THIS TIME. 2. CONSENT FOR YANG OBTAINED ORDERED BY PHYSICIAN AFTER DISCUSSING PROCEDURE WITH FAMILY AT BEDSIDE. 3. YANG IN PROCESS.
--- NOTE | 2019-01-20 16:57 | NUR ---
SWALLOW EVALUATION IN PROCESS. FAMILY AT BEDSIDE.
--- NOTE | 2019-01-20 17:19 | NUR ---
SWALLOW EVALUATED WITH FAMILY PRESENT. PATIENT ABLE TO TOLERATE PUREE DIET TEXTURE WITH THIN LIQUIDS WITH NO OVERT SIGNS OR SYMPTOMS OF ASPIRATION. GREAT EFFORT, CUEING AND PROMPTING TO GET PATIENT TO INITIATE SWALLOW. WILL NEED MAX ASSISTANCE FOR FEEDING, MINDFUL OF 90 DEGREE POSTURE DURING INTAKE. NURSING NOTIFIED.
--- NOTE | 2019-01-20 19:20 | NUR ---
OPENING NOTES ASSUMED CARE, LAYING ON BED WITH HER EYES CLOSED WITH NO SIGNS OF DISTRESS. RESPIRATIONS EVEN AND UNLABORED, ON O2/NASAL CANNULA @ 4L/MIN, SPO2 100%, NOTED TO HAVE PRODUCTIVE COUGH, PICC LINE TO THE LEFT UPPER ARM PATENT AND INTACT, GODWIN CATHETER DRAINING TO A CLEAR URINE. BED IN LOWEST POSITION WITH SIDE RAILS UP, BED ALARM ON. WILL CONTINUE CARE.
--- NOTE | 2019-01-20 19:58 | NUR ---
Received a call from son Sebastián, updated on pt's status, verbalized understanding.
--- NOTE | 2019-01-20 20:30 | NUR ---
Dr. Angelo at bedside, discussed plan of care.
[2019-01-20] MEDS: FONDAPARINUX SOD 2.5mg/0.5ml SYRINGE SC SCH (21:52)
[2019-01-20] MEDS: ATORVASTATIN 20 MG TAB PO SCH (21:53)
--- NOTE | 2019-01-20 22:11 | NUR ---
PT ASSESSED FOR PRN MED NEB TX. SPO2 100% - O2 TITRATED TO 2L NC FROM 4L. HR 107, RR 24, BREATH SOUNDS ARE COARSE ON INSPIRATION. NO SIGNS OF RESPIRATORY DISTRESS AT THIS TIME. CPAP ON STANDBY AT BEDSIDE. ABHISHEK VALLE AT BEDSIDE.
--- NOTE | 2019-01-20 22:20 | NUR ---
PO MEDS CRUSHED AND MIXED WITH APPLESAUCE, GIVEN WITH STRICT ASPIRATION PRECAUTION, WELL TOLERATED.
[2019-01-21] VITALS (70 sets, daily range): BP systolic 110–173; BP diastolic 50–81
[2019-01-21] MEDS: MEROPENEM 1GM IVPB 100 ML IV SCH ×3 (02:30→18:30)
[2019-01-21 04:21] LABS: Basophils # (auto) 0 uL; Basophils % (auto) 0.3 % (0.0-2.0); Eosinophils # (auto) 0.2 uL; Lymphocytes # (auto) 0.6 uL; Monocytes # (auto) 0.8 uL; Neutrophils # (auto) 3.7 uL; Nucleated Red Blood Cells % 0.1 %
[2019-01-21 04:25] LABS: Eosinophils % (auto) 3.1 % (0.0-7.0); Hematocrit 24.8 % (36.0-46.0); Hemoglobin 8.2 g/dL (12.2-16.2); Lymphocytes % (auto) 12.1 % (10.0-50.0); Mean Corpuscular Hemoglobin 26.2 pg (28.0-32.0); Mean Corpuscular Hgb Conc. 33.1 g/dL (32.0-36.0); Mean Corpuscular Volume 79.1 fL (80.0-100.0); Monocytes % (auto) 15.3 % (0.0-12.0); Neutrophils % (auto) 69.2 % (37.0-80.0); Platelet Count (auto) 97 10^3/uL (140-450); Red Blood Cells 3.14 10^6/uL (4.0-5.20); Red Cell Distribution Width 14.9 % (11.8-14.3); White Blood Cell 5.4 10^3/uL (4.4-10.8)
[2019-01-21 04:36] LABS: Potassium 3.7 mmol/L (3.5-5.1)
[2019-01-21 04:41] LABS: BUN/Creatinine Ratio 31.4; Calcium 9.7 mg/dL (8.5-10.1)
--- NOTE | 2019-01-21 04:45 | NUR ---
MORNING CARE DONE, PARTIAL LINENS CHANGED.
[2019-01-21] MEDS: InsuLIN REG 1unit/0.01ml Soln (100units/ml) SC SCH ×4 (06:00→18:00)
[2019-01-21] MEDS: ACCU-CHEK COMFORT CURVE STRIP VI SCH ×4 (06:00→18:00)
[2019-01-21] MEDS: hydrALAZINE HCL 25 MG TAB PO SCH ×3 (06:39→21:04)
--- NOTE | 2019-01-21 06:45 | NUR ---
pt assessed for prn hhn tx. pt is on 2lnc, spo2 10%, hr 77, rr 18. no s/s of respiratory distress, breathing tx not indicated at this time. will continue to monitor.
--- NOTE | 2019-01-21 06:59 | NUR ---
CALLED LAB TO FF UP ORDER FOR HIT, PF4 ANTIBODY, PER LAB STAFF, HIT WAS ALREADY SENT OUT AND THE RESULT WILL BE BACK IN 7-10 DAYS AND THEY ARE WAITING TO HEAR FROM THE DOCTOR ABOUT THE PF4 ANTIBODY IF THEY STILL WANT IT TO BE DONE SO THEY COULD ORDER THE KIT.
--- NOTE | 2019-01-21 07:18 | NUR ---
CLOSING NOTES RESTING ON BED WITH NO SIGNS OF DISTRESS, STILL ON O2 @ 2L/MIN/NC SPO2 100%, AFEBRILE, HR 72, BP 152/71. REPORT GIVEN TO DAY SHIFT RN.
--- NOTE | 2019-01-21 07:20 | NUR ---
REPORT RECEIVED, ASSUMING CARE.
[2019-01-21] MEDS: LEVETIRACETAM INJ 500 MG in D5W 5% 100 ML IV SCH ×2 (10:21→21:37)
[2019-01-21] MEDS: NITROGLYCERIN 0.2MG/HR TOPICAL PATCH TD SCH (10:22)
[2019-01-21] MEDS: ASPirin 81 mg TAB PO SCH (10:22)
[2019-01-21] MEDS: LEVOFLOXACIN 750MG 150 ML IV SCH (10:22)
[2019-01-21] MEDS: LISINOPRIL 10 MG TAB PO SCH (10:22)
[2019-01-21] MEDS: METOPROLOL TARTRATE 25 MG TAB PO SCH ×2 (10:23→21:05)
[2019-01-21] MEDS: SODIUM CHLOR 0.9% PF (SALINE LOCK) 10ML VIAL/SYR IV SCH ×2 (10:23→21:37)
--- NOTE | 2019-01-21 10:30 | NUR ---
DAUGHTER CALLED WITH PASSWORD, UPDATED ON PLAN OF CARE
--- NOTE | 2019-01-21 10:52 | NUR ---
DR HASKINS AT BEDSIDE, EXAMINED PATIENT. NEW ORDERS RECEIVED. DR WILLIAMSON PATIENT UNABLE TO SWALLOW FINELY CRUSHED MEDICATIONS WITH PUREED FRUIT FROM BREAKFAST TRAY. AWARE RN STOPPED FEEDING AND SUCTIONED ORALLY WITH NO SIGNS OF ASPIRATION.
[2019-01-21] MEDS ORDERED: FUROSEMIDE 20 MG/2 ML VIAL IV ONE (11:00)
[2019-01-21] MEDS: POTASSIUM CHL 20MEQ/100ML 100 ML IV SCH ×2 (11:48→14:03)
--- NOTE | 2019-01-21 11:48 | NUR ---
DR COSTA AT BEDSIDE, DR AWARE PATIENT UNABLE TO SWALLOW AM MEDS WITH PUREED FRUIT FROM BREAKFAST TRAY. DR AWARE STRICT ASPIRATION PRECAUTIONS WERE USED IN ATTEMPT TO FEED. DR AWARE NO SIGNS OF ASPIRATION AFTER AND WILL CONTINUE TO MONITOR.
--- NOTE | 2019-01-21 12:54 | NUR ---
Nutrition Follow-up Notes Wt.: 82.7 kg as of 01/16/19 Pt's successfully extubated (01/19/19), s/p YANG yesterday, on oxygen via nasal cannula, asleep, no immediate family member at bedside during rounds this morning. Pt had swallow eval by ST, currently Pureed diet, however noted unable to tolerate oral diet, per nursing. Est. Needs: 1650 kcal to 2050 kcal (20-25 kcal/kgBW), 66 gms to 83 gms pro (0.8-1.0 gms/kgBW). Will continue to monitor pertinent labs and reassess nutrient need prn Labs: Na 147 H, Cl 112 H, BUN 22 H, Ferritin 662.3 H, TIBC 164 L; Alb 2.4 L Skin: Gilmer scale 12, high risk, skin intact per hr shared services consultant. GI: Pt's no bowel activity since 01/15/19 per hr shared services consultant. PES: Partially resolved: Increased nutrient needs r/t current medical condition aeb intubated, sedated, mild hypoalbuminemia, NPO Altered nutrition related lab values r/t current/chronic medical condition aeb hyperchloremia, hypokalemia, hypocapnia, elev. renal labs, Trop I, hypocalcemia, hypocalcemia and mild hypoalbuminemia Will continue to monitor PO intake, skin status, pertinent labs and weight trend. F/u in 3 to 5 days. Rec.: 1.) Continue close supervision and feeding assistance prn during meals. 2.) If pt unable to tolerate oral diet, consider to resume EN support of Glucerna 1.2 Vineet @ 60 ml/hr goal rate as tolerated if medically appropriate. 3.) If Albumin continues trending down, consider Prostat 1 pkt BID. 4.) Refer to RD for further nutrition educ. and weight monitoring upon discharge. 5.) Continue current plan of care.
--- NOTE | 2019-01-21 13:25 | NUR ---
DAUGHTERS AT BEDSIDE UPDATED ON PLAN OF CARE
--- NOTE | 2019-01-21 15:11 | NUR ---
I spoke with Shaila Patel from [facility], she stated Dr. Esmer Angelo told her he was going to order to transfer this patient to [facility]. I placed [facility] on will-call pending bed assignment-[facility] auth number [id number] (from Shaila Patel).
--- NOTE | 2019-01-21 15:23 | NUR ---
SPOKE WITH DR COSTA, ORDER TO START PROCESS TO TRANSFER TO [facility]. PLATE CLEANER CONSULT PLACED FOR ACUTE CARE TRANSFER TO [facility]
--- NOTE | 2019-01-21 15:45 | NUR ---
RE-EVALUATION OF SWALLOW. PATIENT UNABLE TO INITIATE SWALLOW REQUIRING SUCTION OF TRIAL BOLUS. UNSAFE FOR PO INTAKE. NURSING NOTIFIED.
--- NOTE | 2019-01-21 18:30 | NUR ---
PT ASSESSED, 99% ON 2L NC, BS DIMINISHED BILATERALLY. NO SOB.
--- NOTE | 2019-01-21 19:15 | NUR ---
OPENING NOTES ASSUMED CARE, LAYING ON BED WITH HER EYES CLOSED WITH NO SIGNS OF DISTRESS, STILL APHASIC BUT ABLE TO FOLLOW SIMPLE COMMANDS, GENERALIZED WEAKNESS STILL NOTED, ON O2/ NASAL CANNULA @ 2L/MIN, SPO2 99 % WITH EVEN AND UNLABORED BREATHING, PICC LINE PATENT AND INTACT, GODWIN CATHETER DRAINING TO A LIGHT JANICE URINE. BED IN LOWEST POSITION WITH SIDE RAILS UP, BED ALARM ON AND CALL LIGHT WITHIN REACH. ENCOURAGED TO CALL IF SHE NEEDS SOMETHING. WILL CONTINUE CARE.
--- NOTE | 2019-01-21 20:55 | NUR ---
RECEIVED A CALL FROM NICOLE (DTR-IN LAW), UPDATED ON PT'S STATUS AFTER OBTAINING A PASSWORD.
[2019-01-21] MEDS: ATORVASTATIN 20 MG TAB PO SCH (21:05)
[2019-01-21] MEDS: hydrALAZINE HCL 20 MG/ML VL IV PRN (21:36)
[2019-01-21] MEDS: FONDAPARINUX SOD 2.5mg/0.5ml SYRINGE SC SCH (21:38)
[2019-01-22] VITALS (18 sets, daily range): BP systolic 130–156; BP diastolic 51–77
[2019-01-22] MEDS: MEROPENEM 1GM IVPB 100 ML IV SCH ×3 (02:23→18:30)
--- NOTE | 2019-01-22 05:18 | NUR ---
MORNING CARE DONE, PARTIAL LINEN CHANGED. REPOSITIONED FOR COMFORT.
[2019-01-22] MEDS: hydrALAZINE HCL 25 MG TAB PO SCH ×2 (05:22→14:00)
[2019-01-22] MEDS: ACCU-CHEK COMFORT CURVE STRIP VI SCH ×4 (05:23→18:29)
[2019-01-22 05:36] LABS: Basophils # (auto) 0 uL; Eosinophils # (auto) 0.2 uL; Hematocrit 26.1 % (36.0-46.0); Lymphocytes # (auto) 0.7 uL; Nucleated Red Blood Cells % 0.1 %; White Blood Cell 4.3 10^3/uL (4.4-10.8)
[2019-01-22 05:38] LABS: Basophils % (auto) 0.9 % (0.0-2.0); Eosinophils % (auto) 4.3 % (0.0-7.0); Hemoglobin 8.4 g/dL (12.2-16.2); Mean Corpuscular Hemoglobin 25.6 pg (28.0-32.0); Mean Corpuscular Hgb Conc. 32.2 g/dL (32.0-36.0); Mean Corpuscular Volume 79.3 fL (80.0-100.0); Monocytes # (auto) 0.6 uL; Neutrophils # (auto) 2.7 uL; Neutrophils % (auto) 62.8 % (37.0-80.0); Platelet Count (auto) 115 10^3/uL (140-450); Red Blood Cells 3.29 10^6/uL (4.0-5.20); Red Cell Distribution Width 14.8 % (11.8-14.3)
--- NOTE | 2019-01-22 05:40 | NUR ---
Respiratory note: PT IS OFF BIPAP AND ON 2 L NC. NO SIGNS OR SYMPTOMS OF RESPIRATORY DISTRESS NOTED AT THIS TIME. RN AT BEDSIDE. HR 89, RR 20, SPO2 99% ON 2 L NC, BP 149/72, BS CLEAR AND DIMINISHED. PRN BIPAP NOT INDICATED AT THIS TIME.
[2019-01-22 05:51] LABS: Potassium 4.2 mmol/L (3.5-5.1)
[2019-01-22 05:54] LABS: BUN/Creatinine Ratio 29.5; Calcium 9.7 mg/dL (8.5-10.1)
--- NOTE | 2019-01-22 06:00 | NUR ---
UNABLE TO OBTAIN WEIGHT, SCALE NOT WORKING
--- NOTE | 2019-01-22 07:40 | NUR ---
OPENING NOTE Report received from Sandy WEISS, care assumed. Patient is awake and alert. Patient able to follow simple commands but very weak extremities. Afebrile. Physical assessment performed. Respirations are even and unlabored on 2 L nasal cannula, denies shortness of breath at this time. See skin assessment. Farris catheter patent, secure below bladder. Patient repositioned on side. Bed locked in lowest position, call light within reach. Alarms in place. Will continue to monitor.
[2019-01-22] MEDS: ASPirin 81 mg TAB PO SCH (10:00)
[2019-01-22] MEDS: METOPROLOL TARTRATE 25 MG TAB PO SCH (10:00)
[2019-01-22] MEDS: LISINOPRIL 10 MG TAB PO SCH (10:00)
[2019-01-22] MEDS: SODIUM CHLOR 0.9% PF (SALINE LOCK) 10ML VIAL/SYR IV SCH (10:00)
[2019-01-22] MEDS: LEVOFLOXACIN 750MG 150 ML IV SCH (10:44)
[2019-01-22] MEDS: LEVETIRACETAM INJ 500 MG in D5W 5% 100 ML IV SCH (10:44)
[2019-01-22] MEDS: NITROGLYCERIN 0.2MG/HR TOPICAL PATCH TD SCH (10:52)
--- NOTE | 2019-01-22 11:07 | NUR ---
MD UPDATE called for update on patient. No new orders received.
--- NOTE | 2019-01-22 11:15 | NUR ---
VISITOR FAMILY AT BEDSIDE. FAMILY UPDATED ON PLAN OF CARE.
[2019-01-22] MEDS: InsuLIN REG 1unit/0.01ml Soln (100units/ml) SC SCH ×3 (12:00→18:00)
--- NOTE | 2019-01-22 12:44 | NUR ---
MD VISIT at bedside speaking with patients daughters regarding plan of care. All questions and concerns addressed.
--- NOTE | 2019-01-22 14:15 | NUR ---
MD VISIT at bedside assessing patient. MD reviewing chart.
--- NOTE | 2019-01-22 14:29 | NUR ---
FAMILY CHENCHO MONTEZ PATIENT SON IS CONSENTING FOR PEG TUBE PLACEMENT IF PCP DEEMS NECESSARY FOR NUTRITION.
--- NOTE | 2019-01-22 14:50 | NUR ---
[facility] Shaila luciano called for update on patient, [facility] bed assigned. Will notify once there is an ETA for [facility] pickup.
--- NOTE | 2019-01-22 15:38 | NUR ---
Called/paged Lorna Bragg called re:Transfer orders to [facility]. returned call. Paper work faxed to [facility]. Notifying family. Continue care.
--- NOTE | 2019-01-22 15:50 | NUR ---
FAMILY Spoke with patient daughter Raymond, family is aware patient is going to be transferring to [facility].
--- NOTE | 2019-01-22 18:25 | NUR ---
REPORT Called report to Sukhjinder WEISS at [facility].
--- NOTE | 2019-01-22 18:43 | NUR ---
Discharge Transfers [facility] at bedside for pickup. Patient is being transferred to [facility] room 210. Report called to Sukhjinder WEISS. Patient is to follow up with accepting doctor at the receiving facility. Vitals stable at discharge. Patient given discharge paperwork. Family notified.
== END 2019-01-22 18:15 | disposition short-term general hospital (02) | DRG 871 ==
LOC: EDBD 11:13 → ER 11:13 → TELE 11:14 → ICU WEST 17:58
PROVIDERS: ADMIT Internal Medicine; ATTEND Internal Medicine
PROC: 5A1945Z Respiratory Ventilation, 24-96 Consecutive Hours (ICD-10-PCS; principal; 2019-01-15)
PROC: 0BH17EZ Insertion of Endotracheal Airway into Trachea, Via Natural or Artificial Opening (ICD-10-PCS; 2019-01-15)
PROC: 02HV33Z Insertion of Infusion Device into Superior Vena Cava, Percutaneous Approach (ICD-10-PCS; 2019-01-16)
PROC: 5A09357 Assistance with Respiratory Ventilation, Less than 24 Consecutive Hours, Continuous Positive Airway Pressure (ICD-10-PCS; 2019-01-19)
PROC: 5A09357 Assistance with Respiratory Ventilation, Less than 24 Consecutive Hours, Continuous Positive Airway Pressure (ICD-10-PCS; 2019-01-21)
DX: A41.9 Sepsis, unspecified organism (principal); G93.41 Metabolic encephalopathy; R65.21 Severe sepsis with septic shock; J96.01 Acute respiratory failure with hypoxia; I21.4 Non-ST elevation (NSTEMI) myocardial infarction; J69.0 Pneumonitis due to inhalation of food and vomit; J96.21 Acute and chronic respiratory failure with hypoxia; I63.9 Cerebral infarction, unspecified; J15.5 Pneumonia due to Escherichia coli; N17.9 Acute kidney failure, unspecified; N39.0 Urinary tract infection, site not specified; J98.11 Atelectasis; M62.82 Rhabdomyolysis; E87.2 Acidosis; E87.3 Alkalosis; R47.01 Aphasia; E87.6 Hypokalemia; E11.65 Type 2 diabetes mellitus with hyperglycemia; E11.21 Type 2 diabetes mellitus with diabetic nephropathy; E86.1 Hypovolemia; G40.901 Epilepsy, unspecified, not intractable, with status epilepticus; I25.10 Atherosclerotic heart disease of native coronary artery without angina pectoris; D64.9 Anemia, unspecified; D69.6 Thrombocytopenia, unspecified; E11.22 Type 2 diabetes mellitus with diabetic chronic kidney disease; N18.9 Chronic kidney disease, unspecified; D50.9 Iron deficiency anemia, unspecified; F17.200 Nicotine dependence, unspecified, uncomplicated; I08.1 Rheumatic disorders of both mitral and tricuspid valves; I12.9 Hypertensive chronic kidney disease with stage 1 through stage 4 chronic kidney disease, or unspecified chronic kidney disease; I16.0 Hypertensive urgency; R29.810 Facial weakness; M10.9 Gout, unspecified; Z74.01 Bed confinement status; Z80.49 Family history of malignant neoplasm of other genital organs; Z85.3 Personal history of malignant neoplasm of breast; Z90.10 Acquired absence of unspecified breast and nipple; Z86.73 Personal history of transient ischemic attack (TIA), and cerebral infarction without residual deficits; Z99.81 Dependence on supplemental oxygen
CPT/HCPCS: 31500; 36415; 36556; 36569; 36600; 70450; 71045; 76937; 80048; 80053; 80061; 80170; 80307; 80320; 80329; 81001; 82550; 82607; 82728; 82746; 82805; 82962; 83036; 83540; 83550; 83605; 83615; 83735; 84132; 84484; 85025; 85610; 85730; 87040; 87070; 87077; 87081; 87086; 87088; 87186; 87205; 92507; 92610; 93005; 93306; 93312; 93886; 93971; 94002; 94003; 94640; 94660; 95819; 96365; 99291; G0378; J0330; J0696; J1652; J1815; J1956; J2185; J2250; J2704; J3480; J7060

== ENCOUNTER → 2019-06-01 | Outpatient (CLI) | payer MEDICARE, MEDICAID ==
[~2019-06-01] MED LIST: ALLO100T; ESCI10TA53; GABA100C9 PO; LISI10TA6; LOVA40TA72; MAGN250T13; METH500T6 PO; METO-159; OXYB5TAB61; PROAIR; SULFAMETHOXAZOLE-TMP; THEO400T8; [UNRECOGNIZED DRUG - CODE]
== END | disposition home or self-care (01) ==
LOC: Rad HDHVI 11:52
PROVIDERS: ATTEND Internal Medicine Cardiovascular Disease
DX: I08.8 Other rheumatic multiple valve diseases (principal); G45.9 Transient cerebral ischemic attack, unspecified; I10 Essential (primary) hypertension; R07.9 Chest pain, unspecified; R00.2 Palpitations
CPT/HCPCS: 93306; 93880

== ENCOUNTER 2022-01-10 09:52 | Inpatient (IN) | payer MEDICARE, MEDICAID ==
[~2022-01-10] VITALS: Ht 152.4 cm; Wt 89.0 kg
[~2022-01-10 09:52] MED LIST changes: +ESCI-28; -ESCI10TA53; +LISI-716; -LISI10TA6; +METH500T22 PO; -METH500T6 PO; +THEO400T10; -THEO400T8; +[UNRECOGNIZED DRUG - CODE]; -[UNRECOGNIZED DRUG - CODE]
[2022-01-10 11:46] LABS: Basophils # (auto) 0 10 ^3/uL (0-0.2); Eosinophils # (auto) 0 10 ^3/uL (0-0.8); Lymphocytes # (auto) 1.1 10 ^3/uL (0.4-5.4); Lymphocytes % (auto) 40.5 % (10.0-50.0); Red Cell Distribution Width 16.6 % (11.8-14.3); White Blood Cell 2.7 10^3/uL (4.4-10.8)
[2022-01-10 11:49] LABS: Basophils % (auto) 0.4 % (0.0-2.0); Eosinophils % (auto) 1.7 % (0.0-7.0); Hematocrit 35.9 % (36.0-46.0); Hemoglobin 11.5 g/dL (12.2-16.2); Mean Corpuscular Hemoglobin 24.3 pg (28.0-32.0); Mean Corpuscular Hgb Conc. 32.1 g/dL (32.0-36.0); Mean Corpuscular Volume 75.7 fL (80.0-100.0); Monocytes # (auto) 0.2 10 ^3/uL (0-1.3); Monocytes % (auto) 8.1 % (0.0-12.0); Neutrophils # (auto) 1.3 10 ^3/uL (1.6-8.6); Neutrophils % (auto) 49.3 % (37.0-80.0); Nucleated Red Blood Cells % 0.2 %; Red Blood Cells 4.75 10^6/uL (4.0-5.20)
[2022-01-10 12:01] LABS: INR 1.03 (0.9-1.15); Partial Thromboplastin Time 27.3 sec (24.6-33.4)
[2022-01-10 12:02] LABS: Albumin 3.4 g/dL (3.4-5.0); Calcium 9.5 mg/dL (8.5-10.1); Magnesium 1.7 mg/dL (1.6-2.6); Potassium 3.8 mmol/L (3.5-5.1)
[2022-01-10 12:06] LABS: BUN/Creatinine Ratio 36.2; Bilirubin, Total 0.3 mg/dL (0.2-1.0); Total Protein 5.9 g/dL (6.4-8.2)
[2022-01-10] MEDS ORDERED: cefTRIAXone 1GM/50ML D5W 50 ML IV ONE (14:00)
[2022-01-10] MEDS ORDERED: MORPHINE SULFATE INJ 2 MG/ml SYRG IV PRN (14:30)
[2022-01-10] MEDS ORDERED: DEXTROSE (50%) 50ML SYRG IV PRN (14:30)
[2022-01-10] MEDS ORDERED: ONDANSETRON HCL 4 MG/2 ML VIAL IV PRN (14:30)
[2022-01-10] MEDS ORDERED: NITROGLYCERIN 0.4 MG SL TAB SL PRN (14:30)
[2022-01-10] MEDS: ACCU-CHEK COMFORT CURVE STRIP VI SCH ×2 (16:50→22:24)
[2022-01-10] MEDS: InsuLIN REG 1unit/0.01ml Soln (100units/ml) SC SCH (16:50)
[2022-01-10 19:38] LABS: Urine Bacteria NONE SEEN /hpf (None Seen); Urine Blood TRACE /uL (Negative); Urine WBC 1 /hpf (0 - 5)
[2022-01-10] MEDS ORDERED: InsuLIN REG 1unit/0.01ml Soln (100units/ml) SC SCH (22:00)
[2022-01-10 22:15] VITALS: BP 178/90
[2022-01-10 23:24] VITALS: BP 160/83
[2022-01-10] MEDS ORDERED: INSREG3 IV (23:57)
[2022-01-10] MEDS ORDERED: MAGNSUS48 PO (23:57)
[2022-01-10] MEDS ORDERED: ACET-1156 PO (23:57)
[2022-01-10] MEDS ORDERED: DONE5TAB11 PO (23:57)
[2022-01-10] MEDS ORDERED: RIS1T PO (23:57)
[2022-01-10] MEDS ORDERED: CLON0.1T PO (23:57)
[2022-01-10] MEDS ORDERED: OXY5T PO (23:57)
[2022-01-10] MEDS ORDERED: SENN8.6C PO (23:57)
[2022-01-10] MEDS ORDERED: BISA10SU45 RE (23:57)
[2022-01-10] MEDS ORDERED: ASPI-543 PO (23:57)
[2022-01-10] MEDS ORDERED: LISI-716 PO (23:57)
[2022-01-10] MEDS ORDERED: LACT1CAP14 PO (23:57)
[2022-01-10] MEDS ORDERED: SERT-377 PO (23:57)
[2022-01-10] MEDS ORDERED: ATOR20TA PO (23:57)
[2022-01-10] MEDS ORDERED: CHOL20007 PO (23:57)
[2022-01-10] MEDS ORDERED: METO25TA5 PO (23:57)
[2022-01-10] MEDS ORDERED: LEVE100012 PO (23:57)
[2022-01-10] MEDS ORDERED: PANT1INJ3 PO (23:57)
[2022-01-10] MEDS ORDERED: HYDR-4902 PO (23:57)
[2022-01-10] MEDS ORDERED: ASCO500T11 PO (23:57)
[2022-01-10] MEDS ORDERED: FER325T PO (23:57)
[2022-01-10] MEDS ORDERED: MULTTAB75 PO (23:57)
[2022-01-10] MEDS ORDERED: DOCU100T15 PO (23:57)
[2022-01-10] MEDS ORDERED: ALLO100T PO (23:57)
[2022-01-11] VITALS: BP 136/72
[2022-01-11 04:46] VITALS: BP 155/71
[2022-01-11 06:05] LABS: Basophils # (auto) 0 10 ^3/uL (0-0.2); Eosinophils # (auto) 0.1 10 ^3/uL (0-0.8); Hemoglobin 11.1 g/dL (12.2-16.2); Lymphocytes # (auto) 1.3 10 ^3/uL (0.4-5.4); Neutrophils # (auto) 1.8 10 ^3/uL (1.6-8.6); Nucleated Red Blood Cells % 0.1 %
[2022-01-11 06:08] LABS: Basophils % (auto) 0.4 % (0.0-2.0); Eosinophils % (auto) 1.7 % (0.0-7.0); Hematocrit 35.1 % (36.0-46.0); Lymphocytes % (auto) 35.3 % (10.0-50.0); Mean Corpuscular Hemoglobin 23.8 pg (28.0-32.0); Mean Corpuscular Hgb Conc. 31.7 g/dL (32.0-36.0); Mean Corpuscular Volume 75.1 fL (80.0-100.0); Monocytes # (auto) 0.6 10 ^3/uL (0-1.3); Monocytes % (auto) 14.9 % (0.0-12.0); Neutrophils % (auto) 47.7 % (37.0-80.0); Red Blood Cells 4.68 10^6/uL (4.0-5.20); White Blood Cell 3.8 10^3/uL (4.4-10.8)
[2022-01-11 06:21] LABS: Potassium 3.4 mmol/L (3.5-5.1)
[2022-01-11 06:25] LABS: Albumin 3.4 g/dL (3.4-5.0); BUN/Creatinine Ratio 31.1; Calcium 9.7 mg/dL (8.5-10.1)
[2022-01-11 06:36] LABS: Bilirubin, Total 0.3 mg/dL (0.2-1.0); Total Protein 5.7 g/dL (6.4-8.2)
[2022-01-11] MEDS: ACCU-CHEK COMFORT CURVE STRIP VI SCH ×2 (06:38→12:02)
[2022-01-11] MEDS: InsuLIN REG 1unit/0.01ml Soln (100units/ml) SC SCH ×2 (06:38→11:30)
[2022-01-11 08:38] VITALS: BP 163/71
[2022-01-11] MEDS: cefTRIAXone 1GM/50ML D5W 50 ML IV SCH (09:38)
[2022-01-11] MEDS ORDERED: METOPROLOL TARTRATE 50 MG TAB PO SCH (10:00)
[2022-01-11 13:00] VITALS: BP 167/83
[2022-01-11] MEDS ORDERED: VANCOMYCIN 1GM/250ML 250 ML IV ONE ×2 (16:00→16:34)
[2022-01-11] MEDS ORDERED: POTASSIUM CHLORIDE 8 MEQ TAB PO ONE (16:30)
[2022-01-11] MEDS ORDERED: amLODIPine BESYLATE 5 MG TAB PO ONE (16:45)
[2022-01-11 16:50] VITALS: BP 158/77
[2022-01-11] MEDS ORDERED: LACTULOSE 20Gm/30ML SOLN PO ONE (18:30)
[2022-01-11] MEDS ORDERED: DOCUSATE SOD 100 MG CAP PO ONE (18:30)
[2022-01-11 22:00] VITALS: BP 162/87
[2022-01-11] MEDS: DOCUSATE SOD 100 MG CAP PO SCH (22:23)
[2022-01-11] MEDS: risperiDONE 1 MG TAB PO SCH (22:23)
[2022-01-11] MEDS: METOPROLOL TARTRATE 50 MG TAB PO SCH (22:24)
[2022-01-11] MEDS: LACTULOSE 20Gm/30ML SOLN PO SCH (23:48)
[2022-01-12 05:00] VITALS: BP 144/66
[2022-01-12] MEDS: LACTULOSE 20Gm/30ML SOLN PO SCH ×3 (06:21→18:00)
[2022-01-12 08:47] VITALS: BP 128/75
[2022-01-12] MEDS: cefTRIAXone 1GM/50ML D5W 50 ML IV SCH (08:50)
[2022-01-12] MEDS ORDERED: VANCOMYCIN PER PHARMACY 0 MG IV SCH (10:00)
[2022-01-12] MEDS: amLODIPine BESYLATE 5 MG TAB PO SCH (11:06)
[2022-01-12] MEDS: DOCUSATE SOD 100 MG CAP PO SCH ×2 (11:07→21:36)
[2022-01-12] MEDS: METOPROLOL TARTRATE 50 MG TAB PO SCH ×2 (11:07→21:35)
[2022-01-12] MEDS: VANCOMYCIN 1GM/250ML 250 ML IV SCH (11:08)
[2022-01-12 13:00] VITALS: BP 132/80
[2022-01-12 16:43] VITALS: BP 131/82
[2022-01-12] MEDS: risperiDONE 1 MG TAB PO SCH (21:35)
[2022-01-12 22:00] VITALS: BP 124/71
[2022-01-13] VITALS (7 sets, daily range): BP systolic 100–147; BP diastolic 37–88
[2022-01-13] MEDS: VANCOMYCIN 1GM/250ML 250 ML IV SCH ×2 (04:20→22:20)
[2022-01-13] MEDS: LACTULOSE 20Gm/30ML SOLN PO SCH ×4 (06:00→17:59)
[2022-01-13] MEDS: DOCUSATE SOD 100 MG CAP PO SCH ×2 (10:00→22:00)
[2022-01-13] MEDS: cefTRIAXone 1GM/50ML D5W 50 ML IV SCH (10:21)
[2022-01-13] MEDS: METOPROLOL TARTRATE 50 MG TAB PO SCH ×2 (10:22→22:21)
[2022-01-13] MEDS: amLODIPine BESYLATE 5 MG TAB PO SCH (10:22)
[2022-01-13] MEDS ORDERED: ENOXAPARIN SOD 40 MG/0.4 ML SYRINGE SC ONE ×2 (16:00→16:30)
[2022-01-13] MEDS: risperiDONE 1 MG TAB PO SCH (22:21)
[2022-01-14 05:00] VITALS: BP 147/65
[2022-01-14] MEDS: LACTULOSE 20Gm/30ML SOLN PO SCH ×4 (05:19→18:17)
[2022-01-14 08:00] VITALS: BP 158/64
[2022-01-14 08:34] LABS: Basophils # (auto) 0 10 ^3/uL (0-0.2); Basophils % (auto) 0.5 % (0.0-2.0); Eosinophils # (auto) 0.1 10 ^3/uL (0-0.8); Lymphocytes # (auto) 1.2 10 ^3/uL (0.4-5.4); Lymphocytes % (auto) 39.4 % (10.0-50.0); Mean Corpuscular Hemoglobin 23.8 pg (28.0-32.0); Neutrophils # (auto) 1.4 10 ^3/uL (1.6-8.6); Nucleated Red Blood Cells % 0.1 %; White Blood Cell 3.1 10^3/uL (4.4-10.8)
[2022-01-14 08:36] LABS: Eosinophils % (auto) 2.8 % (0.0-7.0); Hematocrit 34.6 % (36.0-46.0); Mean Corpuscular Hgb Conc. 31.8 g/dL (32.0-36.0); Mean Corpuscular Volume 74.8 fL (80.0-100.0); Monocytes # (auto) 0.4 10 ^3/uL (0-1.3); Monocytes % (auto) 11.5 % (0.0-12.0); Neutrophils % (auto) 45.8 % (37.0-80.0); Red Blood Cells 4.63 10^6/uL (4.0-5.20)
[2022-01-14 09:29] VITALS: BP 158/64
[2022-01-14] MEDS: METOPROLOL TARTRATE 50 MG TAB PO SCH ×2 (09:39→21:06)
[2022-01-14] MEDS: DOCUSATE SOD 100 MG CAP PO SCH ×2 (09:39→21:05)
[2022-01-14] MEDS: ENOXAPARIN SOD 40 MG/0.4 ML SYRINGE SC SCH (09:39)
[2022-01-14] MEDS: amLODIPine BESYLATE 5 MG TAB PO SCH (09:40)
[2022-01-14] MEDS: cefTRIAXone 1GM/50ML D5W 50 ML IV SCH (09:41)
[2022-01-14 13:00] VITALS: BP 172/79
[2022-01-14] MEDS ORDERED: cloNIDine HCL 0.1 MG TAB PO ONE (13:00)
[2022-01-14 17:00] VITALS: BP 120/59
[2022-01-14] MEDS: MUPIROCIN 2% OINT 15gm or 22gm FOR MRSA NARES EACHNOSTRI SCH (21:04)
[2022-01-14] MEDS: levETIRAcetam 500 MG TAB PO SCH (21:05)
[2022-01-14] MEDS: cloNIDine HCL 0.1 MG TAB PO SCH (21:05)
[2022-01-14] MEDS: risperiDONE 1 MG TAB PO SCH (21:06)
[2022-01-14 22:00] VITALS: BP 133/72
[2022-01-14] MEDS ORDERED: ATORVASTATIN 20 MG TAB PO SCH (22:00)
[2022-01-14] MEDS ORDERED: DONEPEZIL HYDROCHLORIDE 5 MG TAB PO SCH (22:00)
[2022-01-15] MEDS: LACTULOSE 20Gm/30ML SOLN PO SCH ×4 (00:21→18:43)
[2022-01-15 05:00] VITALS: BP 123/66
[2022-01-15 09:00] VITALS: BP 110/49
[2022-01-15] MEDS: cefTRIAXone 1GM/50ML D5W 50 ML IV SCH (09:59)
[2022-01-15] MEDS ORDERED: PANTOPRAZOLE 40 MG TAB PO SCH (10:00)
[2022-01-15] MEDS ORDERED: ASPirin 81 mg TAB PO SCH (10:00)
[2022-01-15] MEDS ORDERED: SERTRALINE HCL 50 MG TAB PO SCH (10:00)
[2022-01-15] MEDS ORDERED: ALLOPURINOL 100 MG TAB PO SCH (10:00)
[2022-01-15] MEDS: amLODIPine BESYLATE 5 MG TAB PO SCH (10:01)
[2022-01-15] MEDS: DOCUSATE SOD 100 MG CAP PO SCH (10:02)
[2022-01-15] MEDS: cloNIDine HCL 0.1 MG TAB PO SCH (10:02)
[2022-01-15] MEDS: levETIRAcetam 500 MG TAB PO SCH (10:05)
[2022-01-15] MEDS: ENOXAPARIN SOD 40 MG/0.4 ML SYRINGE SC SCH (10:06)
[2022-01-15] MEDS: METOPROLOL TARTRATE 50 MG TAB PO SCH (10:06)
[2022-01-15 13:00] VITALS: BP 109/48
[2022-01-15] MEDS: MUPIROCIN 2% OINT 15gm or 22gm FOR MRSA NARES EACHNOSTRI SCH (13:00)
[2022-01-15 17:11] VITALS: BP 105/56
== END 2022-01-15 19:45 | DRG 177 ==
LOC: EDBD 09:52 → ER 09:59 → TELE 14:26 → TELE-WESTW 22:03 → WEST WING 01-13 10:05
PROVIDERS: ADMIT Nurse Practitioner Family; ATTEND Internal Medicine
DX: J69.0 Pneumonitis due to inhalation of food and vomit (principal); J96.01 Acute respiratory failure with hypoxia; J44.0 Chronic obstructive pulmonary disease with (acute) lower respiratory infection; E11.9 Type 2 diabetes mellitus without complications; F03.90 Unspecified dementia, unspecified severity, without behavioral disturbance, psychotic disturbance, mood disturbance, and anxiety; G40.909 Epilepsy, unspecified, not intractable, without status epilepticus; I11.0 Hypertensive heart disease with heart failure; I25.10 Atherosclerotic heart disease of native coronary artery without angina pectoris; I50.9 Heart failure, unspecified; Z20.822 Contact with and (suspected) exposure to COVID-19; D69.6 Thrombocytopenia, unspecified; D72.819 Decreased white blood cell count, unspecified; E66.9 Obesity, unspecified; E78.5 Hyperlipidemia, unspecified; E87.6 Hypokalemia; F01.50 Vascular dementia, unspecified severity, without behavioral disturbance, psychotic disturbance, mood disturbance, and anxiety; Z68.38 Body mass index [BMI] 38.0-38.9, adult; Z79.84 Long term (current) use of oral hypoglycemic drugs
CPT/HCPCS: 36415; 71045; 80053; 80202; 81001; 82565; 82607; 82962; 83605; 83735; 84132; 84443; 85025; 85610; 85730; 87040; 87077; 87081; 87147; 87186; 93005; 96365; G0378; J0696

== ENCOUNTER 2022-10-29 12:21 | Emergency (ER) | payer MEDICARE, MEDICAID ==
[~2022-10-29] VITALS: Ht 167.6 cm; Wt 91.0 kg
[~2022-10-29 12:21] MED LIST changes: +ACET-1881 PO; -ALLO100T; +ALLO100T PO; +ASCO500T11 PO; +ASPI-543 PO; +ATOR20TA PO; +BISA10SU45 RE; +CHOL20007 PO; +CLON0.1T PO; +DOCU100T15 PO; +DONE5TAB11 PO; -ESCI-28; +FER325T PO; -GABA100C9 PO; +HYDR-4902 PO; +INSREG3 IV; +LACT1CAP14 PO; +LEVE100012 PO; -LISI-716; +LISI10TA34 PO; -LOVA40TA72; -MAGN250T13; +MAGNSUS48 PO; -METH500T22 PO; -METO-159; +METO25TA5 PO; +MULTTAB75 PO; +OXY5T PO; -OXYB5TAB61; +PANT1INJ3 PO; -PROAIR; +RIS1T PO; +SENN8.6C PO; +SERT-377 PO; -SULFAMETHOXAZOLE-TMP; -THEO400T10; -[UNRECOGNIZED DRUG - CODE]
[2022-10-29 13:33] LABS: Basophils # (auto) 0 10 ^3/uL (0-0.2); Eosinophils # (auto) 0.1 10 ^3/uL (0-0.8); Lymphocytes # (auto) 1.5 10 ^3/uL (0.4-5.4); Monocytes # (auto) 0.4 10 ^3/uL (0-1.3); Neutrophils # (auto) 1.7 10 ^3/uL (1.6-8.6); White Blood Cell 3.7 10^3/uL (4.4-10.8)
[2022-10-29 13:36] LABS: Basophils % (auto) 0.5 % (0.0-2.0); Eosinophils % (auto) 1.5 % (0.0-7.0); Hematocrit 39.6 % (36.0-46.0); Hemoglobin 12.5 g/dL (12.2-16.2); Lymphocytes % (auto) 39.7 % (10.0-50.0); Mean Corpuscular Hgb Conc. 31.6 g/dL (32.0-36.0); Monocytes % (auto) 11.6 % (0.0-12.0); Neutrophils % (auto) 46.7 % (37.0-80.0); Nucleated Red Blood Cells % 0.4 %; Red Blood Cells 5.02 10^6/uL (4.0-5.20); Red Cell Distribution Width 16.6 % (11.8-14.3)
[2022-10-29 14:15] LABS: Albumin 3.1 g/dL (3.4-5.0); Calcium 8.6 mg/dL (8.5-10.1); Magnesium 1.9 mg/dL (1.6-2.6); Potassium 4.1 mmol/L (3.5-5.1)
[2022-10-29 14:19] LABS: BUN/Creatinine Ratio 41.8 (10.0-20.0); Bilirubin, Total 0.3 mg/dL (0.2-1.0); Total Protein 5.6 g/dL (6.4-8.2)
[2022-10-29 18:09] LABS: Lactic Acid w/Reflex 2.4 mmol/L (0.4-2.0)
[2022-10-30 13:00] VITALS: BP 144/78
== END 2022-10-30 13:12 | disposition home or self-care (01) ==
LOC: ER 12:21 → EDBD 12:21 → ER 10-30 13:05
DX: I10 Essential (primary) hypertension (principal); E11.9 Type 2 diabetes mellitus without complications
CPT/HCPCS: 36415; 71045; 80053; 83605; 83735; 83880; 84484; 85025; 93005

== ENCOUNTER → 2022-11-13 | Outpatient (CLI) | payer MEDICARE, MEDICAID | END | disposition home or self-care (01) | LOC: Rad HDHVI 13:10 | PROVIDERS: ATTEND Internal Medicine Cardiovascular Disease | DX: I10 Essential (primary) hypertension (principal); E78.5 Hyperlipidemia, unspecified | CPT/HCPCS: 93306 ==

== ENCOUNTER → 2022-12-08 | Outpatient (CLI) | payer MEDICARE, MEDICAID | END | disposition home or self-care (01) | LOC: Rad HDHVI 11:41 | PROVIDERS: ATTEND Internal Medicine Cardiovascular Disease | DX: I65.23 Occlusion and stenosis of bilateral carotid arteries (principal); I10 Essential (primary) hypertension; E78.5 Hyperlipidemia, unspecified | CPT/HCPCS: 93880 ==

== ENCOUNTER 2023-08-28 21:41 | Inpatient (IN) | payer MEDICARE, MEDICAID ==
[~2023-08-28] VITALS: Ht 162.6 cm; Wt 109.5 kg
[~2023-08-28 21:41] MED LIST changes: -ACET-1881 PO; +AMLO1TAB22 PO; -ASCO500T11 PO; -ASPI-543 PO; -BISA10SU45 RE; -CHOL20007 PO; -DOCU100T15 PO; +FAMO-12 PO; -FER325T PO; -HYDR-4902 PO; -INSREG3 IV; +INSREG3 SC; +ISAV1CAP2 PO; -LACT1CAP14 PO; -LEVE100012 PO; +LEVE5SOL PO; -LISI10TA34 PO; -MAGNSUS48 PO; -MULTTAB75 PO; -OXY5T PO; -PANT1INJ3 PO; -SENN8.6C PO
[2023-08-28 23:42] LABS: Basophils # (auto) 0 10 ^3/uL (0-0.2); Basophils % (auto) 0.4 % (0.0-2.0); Eosinophils # (auto) 0.1 10 ^3/uL (0-0.8); Hematocrit 30.2 % (36.0-46.0); Lymphocytes # (auto) 1.2 10 ^3/uL (0.4-5.4); Monocytes # (auto) 0.4 10 ^3/uL (0-1.3); Neutrophils # (auto) 1.5 10 ^3/uL (1.6-8.6); Nucleated Red Blood Cells % 0.1 %; White Blood Cell 3.2 10^3/uL (4.4-10.8)
[2023-08-28 23:45] LABS: Eosinophils % (auto) 4.4 % (0.0-7.0); Hemoglobin 9.5 g/dL (12.2-16.2); Lymphocytes % (auto) 36.4 % (10.0-50.0); Mean Corpuscular Hemoglobin 24.6 pg (28.0-32.0); Mean Corpuscular Hgb Conc. 31.5 g/dL (32.0-36.0); Monocytes % (auto) 13.2 % (0.0-12.0); Neutrophils % (auto) 45.6 % (37.0-80.0); Red Blood Cells 3.87 10^6/uL (4.0-5.20); Red Cell Distribution Width 15.4 % (11.8-14.3)
[2023-08-28 23:56] LABS: Alanine Aminotransferase 14 U/L (7-40); Albumin 3.3 g/dL (3.2-4.8); Alkaline Phosphatase 105 U/L (46-116); Anion Gap 2 (5-15); Aspartate Aminotransferase 15 U/L (13-40); Blood Urea Nitrogen 18 mg/dL (9-23); Calcium 9.5 mg/dL (8.7-10.4); Carbon Dioxide 34 mmol/L (20-30); Chloride 104 mmol/L (98-107); Glucose 170 mg/dL (74-106); Potassium 4.1 mmol/L (3.5-5.1); Sodium 140 mmol/L (136-145)
[2023-08-28 23:57] LABS: Bilirubin, Total 0.2 mg/dL (0.2-1.0)
[2023-08-28 23:58] LABS: INR 1.04 (0.9-1.15); Partial Thromboplastin Time 26.6 SEC (24.5-34.5); Prothrombin Time 10.9 sec (9.3-11.8)
[2023-08-29 00:21] VITALS: O2SAT 99
[2023-08-29 02:23] LABS: Urine Bacteria None Seen /hpf (None Seen)
[2023-08-29 02:57] LABS: Urine Blood Negative /uL (Negative); Urine Clarity Clear (Clear); Urine Color Light-Yellow (Yellow); Urine Hyaline Cast FEW /lpf (0 - 2); Urine Protein, UAD Negative (Negative); Urine Specific Gravity 1.018 (1.001-1.035); Urine Urobilinogen Normal (Negative); Urine WBC <1 /hpf (0 - 5)
[2023-08-29] MEDS ORDERED: DOCUSATE SOD 100 MG CAP PO PRN (04:15)
[2023-08-29] MEDS ORDERED: HYDROcodone-ACET 5/325MG TAB PO PRN (04:15)
[2023-08-29] MEDS ORDERED: ONDANSETRON HCL 4 MG/2 ML VIAL IV PRN (04:15)
[2023-08-29] MEDS ORDERED: DEXTROSE (50%) 50ML SYRG IV PRN (04:15)
[2023-08-29] MEDS ORDERED: MORPHINE SULFATE INJ 2 MG/ml SYRG IV PRN (06:00)
[2023-08-29] MEDS: SODIUM CHLOR 0.9% PF (SALINE LOCK) 10ML VIAL/SYR IV SCH (06:00)
[2023-08-29] MEDS ORDERED: NITROGLYCERIN 0.4 MG SL TAB SL PRN (06:00)
[2023-08-29] MEDS: ACCU-CHEK COMFORT CURVE STRIP VI SCH (06:01)
[2023-08-29] MEDS: InsuLIN REG 1unit/0.01ml Soln (100units/ml) SC SCH ×2 (06:02→21:17)
[2023-08-29 06:16] LABS: Alanine Aminotransferase 17 U/L (7-40); Albumin 3.4 g/dL (3.2-4.8); Alkaline Phosphatase 106 U/L (46-116); Aspartate Aminotransferase 18 U/L (13-40); Bilirubin, Total 0.3 mg/dL (0.2-1.0); Calcium 9.8 mg/dL (8.7-10.4); Chloride 103 mmol/L (98-107); Glucose 127 mg/dL (74-106); Potassium 4.2 mmol/L (3.5-5.1); Sodium 141 mmol/L (136-145); Total Protein 5.3 g/dL (5.7-8.2)
[2023-08-29 06:21] LABS: Anion Gap 4 (5-15); BUN/Creatinine Ratio 29.3 (10.0-20.0); Blood Urea Nitrogen 17 mg/dL (9-23); Carbon Dioxide 34 mmol/L (20-30)
[2023-08-29 07:54] LABS: Basophils # (auto) 0 10 ^3/uL (0-0.2); Eosinophils # (auto) 0.1 10 ^3/uL (0-0.8); Hematocrit 32.4 % (36.0-46.0); Monocytes # (auto) 0.4 10 ^3/uL (0-1.3); Neutrophils # (auto) 1.3 10 ^3/uL (1.6-8.6); Red Cell Distribution Width 15.5 % (11.8-14.3); White Blood Cell 2.8 10^3/uL (4.4-10.8)
[2023-08-29 07:56] LABS: Basophils % (auto) 0.4 % (0.0-2.0); Hemoglobin 10.5 g/dL (12.2-16.2); Lymphocytes % (auto) 36.9 % (10.0-50.0); Mean Corpuscular Hemoglobin 25.1 pg (28.0-32.0); Mean Corpuscular Hgb Conc. 32.3 g/dL (32.0-36.0); Mean Corpuscular Volume 77.6 fL (80.0-100.0); Monocytes % (auto) 13.2 % (0.0-12.0); Neutrophils % (auto) 44.5 % (37.0-80.0); Nucleated Red Blood Cells % 0.2 %; Red Blood Cells 4.18 10^6/uL (4.0-5.20)
[2023-08-29 08:00] VITALS: PULSE 51; RESP 16; O2SAT 99
[2023-08-29 08:40] LABS: Anisocytosis Slight; Ovalocytes FEW; Platelet Estimate Decreased; Tear Drop Cells FEW
[2023-08-29] MEDS: APIXABAN 5 MG TAB PO SCH (10:50)
[2023-08-29] MEDS: FAMOTIDINE (10MG/ML) 2ML VL IV SCH (10:50)
[2023-08-29] MEDS: levETIRAcetam 500 mg/100ml 100 ML IV SCH (10:50)
[2023-08-29] MEDS: hydrALAZINE HCL 20 MG/ML VL IV PRN (16:18)
[2023-08-29 20:00] VITALS: PULSE 72; RESP 20; O2SAT 99
[2023-08-29 20:01] VITALS: PULSE 72
[2023-08-29 21:00] VITALS: BP 130/61; PULSE 72; RESP 20; TEMP 97.5; O2SAT 99
[2023-08-29] MEDS: ATORVASTATIN 20 MG TAB PO SCH (21:16)
[2023-08-29] MEDS: DONEPEZIL HYDROCHLORIDE 5 MG TAB PO SCH (21:16)
[2023-08-30] VITALS (9 sets, daily range): BP systolic 134–170; BP diastolic 54–83; PULSE 69–90; RESP 18–20; TEMP 98.1–99.5; O2SAT 96–100
[2023-08-30 06:21] LABS: Basophils # (auto) 0 10 ^3/uL (0-0.2)
[2023-08-30 06:26] LABS: Basophils % (auto) 0.3 % (0.0-2.0); Eosinophils # (auto) 0.1 10 ^3/uL (0-0.8); Eosinophils % (auto) 3.1 % (0.0-7.0); Hematocrit 35.4 % (36.0-46.0); Hemoglobin 10.9 g/dL (12.2-16.2); Lymphocytes # (auto) 0.8 10 ^3/uL (0.4-5.4); Lymphocytes % (auto) 24.3 % (10.0-50.0); Mean Corpuscular Hemoglobin 24.9 pg (28.0-32.0); Mean Corpuscular Hgb Conc. 30.7 g/dL (32.0-36.0); Mean Corpuscular Volume 81.2 fL (80.0-100.0); Monocytes # (auto) 0.5 10 ^3/uL (0-1.3); Monocytes % (auto) 14.8 % (0.0-12.0); Neutrophils % (auto) 57.5 % (37.0-80.0); Nucleated Red Blood Cells % 0.2 %; Red Blood Cells 4.36 10^6/uL (4.0-5.20); Red Cell Distribution Width 15.8 % (11.8-14.3); White Blood Cell 3.5 10^3/uL (4.4-10.8)
[2023-08-30 06:50] LABS: Alanine Aminotransferase 15 U/L (7-40); Albumin 3.5 g/dL (3.2-4.8); Alkaline Phosphatase 104 U/L (46-116); Anion Gap 9 (5-15); Aspartate Aminotransferase 28 U/L (13-40); BUN/Creatinine Ratio 20.4 (10.0-20.0); Bilirubin, Total 0.4 mg/dL (0.2-1.0); Blood Urea Nitrogen 11 mg/dL (9-23); Calcium 9.6 mg/dL (8.5-10.1); Carbon Dioxide 27 mmol/L (20-30); Chloride 105 mmol/L (98-107); Glucose 119 mg/dL (74-106); Potassium 4.5 mmol/L (3.5-5.1); Sodium 141 mmol/L (136-145); Total Protein 5.3 g/dL (5.7-8.2)
[2023-08-30] MEDS: ACETAMINOPHEN 325 MG TAB PO PRN (11:18)
[2023-08-30] MEDS: levETIRAcetam 500 MG/5ML ORAL SOLN UD PO SCH (22:38)
[2023-08-30] MEDS: hydrALAZINE HCL 25 MG TAB PO PRN (22:38)
[2023-08-31] VITALS (7 sets, daily range): BP systolic 114–156; BP diastolic 50–76; PULSE 78–117; RESP 17–22; TEMP 98.1–100.6; O2SAT 94–99
[2023-08-31 09:01] LABS: Basophils # (auto) 0 10 ^3/uL (0-0.2); Eosinophils # (auto) 0.1 10 ^3/uL (0-0.8); Hemoglobin 9.6 g/dL (12.2-16.2); Lymphocytes # (auto) 0.9 10 ^3/uL (0.4-5.4); Mean Corpuscular Hemoglobin 24.6 pg (28.0-32.0); Monocytes # (auto) 0.5 10 ^3/uL (0-1.3); Neutrophils # (auto) 2.5 10 ^3/uL (1.6-8.6); Nucleated Red Blood Cells % 0.1 %; Red Blood Cells 3.92 10^6/uL (4.0-5.20); Red Cell Distribution Width 15.4 % (11.8-14.3); White Blood Cell 4.1 10^3/uL (4.4-10.8)
[2023-08-31 09:02] LABS: Basophils % (auto) 0.4 % (0.0-2.0); Eosinophils % (auto) 2.6 % (0.0-7.0); Hematocrit 30.8 % (36.0-46.0); Lymphocytes % (auto) 22.3 % (10.0-50.0); Mean Corpuscular Hgb Conc. 31.2 g/dL (32.0-36.0); Mean Corpuscular Volume 78.6 fL (80.0-100.0); Monocytes % (auto) 13.2 % (0.0-12.0); Neutrophils % (auto) 61.5 % (37.0-80.0)
[2023-08-31] MEDS ORDERED: DEXTROSE (50%) 50ML SYRG IV PRN (09:45)
[2023-08-31] MEDS: FUROSEMIDE 40 MG TAB PO SCH (10:18)
[2023-08-31] MEDS: SERTRALINE HCL 50 MG TAB PO SCH (10:19)
[2023-08-31] MEDS: FAMOTIDINE 20 MG TAB PO SCH (10:19)
[2023-08-31] MEDS: cloNIDine HCL 0.1 MG TAB PO SCH (10:19)
[2023-08-31] MEDS: ACCU-CHEK COMFORT CURVE STRIP VI SCH (11:30)
[2023-08-31] MEDS: InsuLIN REG 1unit/0.01ml Soln (100units/ml) SC SCH (13:19)
[2023-09-01] VITALS (7 sets, daily range): BP systolic 104–138; BP diastolic 51–70; PULSE 59–82; RESP 16–21; TEMP 96.7–98.6; O2SAT 92–99
[2023-09-01] MEDS ORDERED: FUROSEMIDE 40 MG/4 ML VIAL IV ONE (10:00)
[2023-09-01 10:13] LABS: Chloride 103 mmol/L (98-107); Potassium 4.5 mmol/L (3.5-5.1); Sodium 141 mmol/L (136-145)
[2023-09-01 10:14] LABS: Anion Gap 2 (5-15); Calcium 9.2 mg/dL (8.5-10.1); Carbon Dioxide 36 mmol/L (20-30)
[2023-09-01 10:19] LABS: BUN/Creatinine Ratio 30.5 (10.0-20.0); Blood Urea Nitrogen 18 mg/dL (9-23); Glucose 99 mg/dL (74-106)
[2023-09-01] MEDS: FUROSEMIDE 40 MG TAB PO ONE (13:43)
== END 2023-09-01 18:20 | DRG 314 ==
LOC: ER 21:41 → EDBD 21:41 → TELE 08-29 05:58 → TELE-CENTR 08-29 19:00
PROVIDERS: ADMIT Nurse Practitioner Family; ATTEND Internal Medicine
DX: T82.868A Thrombosis due to vascular prosthetic devices, implants and grafts, initial encounter (principal); I50.33 Acute on chronic diastolic (congestive) heart failure; R53.2 Functional quadriplegia; I82.A11 Acute embolism and thrombosis of right axillary vein; D61.818 Other pancytopenia; Z68.41 Body mass index [BMI] 40.0-44.9, adult; G40.909 Epilepsy, unspecified, not intractable, without status epilepticus; I11.0 Hypertensive heart disease with heart failure; F32.A Depression, unspecified; E11.9 Type 2 diabetes mellitus without complications; M10.9 Gout, unspecified; F03.90 Unspecified dementia, unspecified severity, without behavioral disturbance, psychotic disturbance, mood disturbance, and anxiety; E66.9 Obesity, unspecified; J32.9 Chronic sinusitis, unspecified; E78.5 Hyperlipidemia, unspecified; Z74.01 Bed confinement status; Z79.899 Other long term (current) drug therapy; Z79.4 Long term (current) use of insulin; Z86.73 Personal history of transient ischemic attack (TIA), and cerebral infarction without residual deficits
CPT/HCPCS: 36415; 71045; 80048; 80053; 81001; 82962; 83880; 85025; 85610; 85730; 86850; 86900; 86901; 87081; 93971; 97163; G0378; J1815; J3490

== ENCOUNTER 2024-04-26 18:27 | Inpatient (IN) | payer MEDICARE, MEDICAID ==
[~2024-04-26] VITALS: Ht 152.4 cm; Wt 118.8 kg
[~2024-04-26 18:27] MED LIST changes: +APIX2.5T PO; +ATOR10TA PO; +FURO40TA4 PO; +NITR0.4S29 SL
--- NOTE | 2024-04-26 18:48 | ED.PDOC ---
History of Present Illness HPI Comments 88-year-old female coming from [facility] brought in by EMS presents with a chief complaint of bilateral foot pain. Patient is bed bound, has Dementia, and is A/Ox1 at baseline. Per EMS, patient communicated that her feet hurt to staff and they called 911. Patient unable to provide further information at this time, only able to answer "What is your name?". Per EMS, patient was placed on 1L via NC, blood glucose is 204, and GCS 15. No other symptoms or modifying factors present at this time. Chief Complaint: Lower Extremity Time Seen by MD: 18:27 Primary Care Provider: SALMA Reviewed Notes: Medications, Allergies Allergies: Coded Allergies: NO KNOWN ALLERGIES (Unverified , 01/15/19) Home Meds Active Scripts Isavuconazonium Sulfate (Cresemba) 186 Mg Cap, 186 MG PO DAILY for 30 Days, #60 CAP Prov:ROSA LUX MD 08/17/23 Reported Medications Famotidine (Famotidine) 20 Mg Tab, 1 TAB PO BID 08/14/23 Amlodipine Besylate (Amlodipine Besylate) 5 Mg Tab, 1 TAB PO DAILY 08/14/23 Levetiracetam (Levetiracetam) 100 Mg/Ml Ara, PO BID Take 10 mL by mouth at 9 AM, and 15 mL by mouth at 9 PM for seizures. 08/14/23 Atorvastatin Calcium (Lipitor) 20 Mg Tab, 1 TAB PO HS, #90 TAB 1 Refill 01/10/22 Sertraline HCl (Sertraline Hydrochloride) 100 Mg Tab, 1 TAB PO DAILY 01/10/22 Risperidone (RisperDAL TABLET) 1 Mg Tb, 1 TAB PO QPM, #30 TAB 1 Refill 01/10/22 Metoprolol Tartrate (Metoprolol Tartrate) 25 Mg Tab, 25 MG PO BID for 30 Days, MG 01/10/22 Insulin Regular (Human) (Humulin R) 100 Unit/Ml Inj, SC BID Per sliding scale 01/10/22 Clonidine Hydrochloride (Clonidine Hcl) 0.1 Mg Tab, 0.1 MG PO BID 01/10/22 Donepezil Hydrochloride (Aricept) 5 Mg Tab, 5 MG PO DAILY, TAB 01/10/22 Allopurinol (Allopurinol) 100 Mg Tab, 100 MG PO DAILY for 30 Days, MG 01/10/22 Information Source: Emergency Med Personnel Mode of Arrival: EMS Severity: Moderate Timing: Days Duration: Since onset Prehospital treatment: None Past Medical History PAST MEDICAL HISTORY: CHF, CVA, Dementia, Depression, DM, Gout, HTN, Seizures Surgical History: Unknown MESSENGER OFFICE History: Denies all MESSENGER OFFICE Hx, Unobtainable Family History Family History: Unobtainable Social History Smoker: Unobtainable Alcohol: Unobtainable Drugs: Unobtainable Lives In: Group Home Constitutional: denies: chills, diaphoresis, fatigue, fever, malaise, sweats, weakness, others EENTM: denies: blurred vision, double vision, ear bleeding, ear discharge, ear drainage, ear pain, ear ringing, eye pain, eye redness, hearing loss, mouth pain, mouth swelling, nasal discharge, nose bleeding, nose congestion, nose pain, photophobia, tearing, throat pain, throat swelling, voice changes, others Respiratory: denies: cough, hemoptysis, orthopnea, SOB at rest, shortness of breath, SOB with excertion, stridor, wheezing, others Cardiovascular: denies: chest pain, dizzy spells, diaphoresis, Dyspnea on exertion, edema, irregular heart beat, left arm pain, lightheadedness, palpitations, PND, syncope, others Gastrointestinal: denies: abdomen distended, abdominal pain, blood streaked bowels, constipated, diarrhea, dysphagia, difficulty swallowing, hematemesis, melena, nausea, poor appetite, poor fluid intake, rectal bleeding, rectal pain, vomiting, others Genitourinary: denies: abnormal vagina bleeding, burning, dyspareunia, dysuria, flank pain, frequency, hematuria, incontinence, pain, , vagina discharge, urgency, others Neurological: denies: dizziness, fainting, headache, left sided numbness, left sided weakness, numbness, paresthesia, pre-existing deficit, right sided numbness, right sided weakness, seizure, speech problems, tingling, tremors, weakness, others Musculoskeletal: reports: muscle pain (BILATERAL FOOT PAIN); denies: back pain, gout, joint pain, joint swelling, muscle stiffness, neck pain, others Integumetry: denies: bruises, change in color, change in hair/nails, dryness, laceration, lesions, lumps, rash, wounds, others Allergic/Immunocompromised: denies: Difficulty Healing, Frequent Infections, Hives, Itching, others Hematologic/Lymphatic: denies: anemia, blood clots, easy bleeding, easy bruising, swollen glands, others Endocrine: denies: excessive hunger, excessive sweating, excessive thirst, excessive urination, flushing, intolerance to cold, intolerance to heat, unexplained weight gain, unexplained weight loss, others Psychiatric: denies: anxiety, bipolar disorder, depression, hopeless, panic disorder, schizophrenia, sleepless, suicidal, others All Other Systems: Reviewed and Negative Physical Exam General Appearance: Moderate Distress, Normal HEENT: Normal ENT Inspection, Pharynx Normal, TMs Normal Neck: Full Range of Motion, Non-Tender, Normal, Normal Inspection Respiratory: Chest Non-Tender, Lungs Clear, No Accessory Muscle Use, No Respiratory Distress, Normal Breath Sounds Cardiovascular: No Edema, No JVD, No Murmur, No Gallop, Normal Peripheral Pulses, Regular Rate/Rhythm Breast Exam: Deferred Gastrointestinal: No Organomegaly, Non Tender, No Pulsatile Mass, Normal Bowel Sounds, Soft Genitalia: Deferred Pelvic: Deferred Rectal: Deferred Extremities: No calf tenderness, Normal capillary refill, Normal range of motion, Non-tender, No pedal edema, Other (Bilateral feet or twisted as well as the toes; left 2nd and 3rd toe blue and severely tenderness) Musculoskeletal : Apperance: Normal Neurologic: Alert (Oriented x1), 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 Was a procedure done?: No Differential Dx Considerations may include: Osteo mellitus versus vascular insufficiency of the lower extremity X-Ray, Labs, Meds, VS Vital Signs Date Time Temp Pulse Resp B/P (MAP) Pulse Ox O2 Delivery O2 Flow Rate FiO2 04/26/24 23:00 59 23 112/63 (79) 98 04/26/24 22:40 65 23 98 Nasal Cannula* 2 28 04/26/24 22:00 59 23 146/54 (84) 98 04/26/24 21:00 58 24 147/66 (93) 98 04/26/24 19:30 64 04/26/24 19:00 98.5 64 25 133/51 (78) 98 98.5 04/26/24 18:58 63 25 98 Nasal Cannula* 2 28 04/26/24 18:58 98.1 63 25 131/47 (75) 98 98.1 04/26/24 18:32 98.3 67 18 152/74 (100) 99 Lab Test 04/26/24 21:50 04/26/24 20:30 04/26/24 19:25 Range/Units Troponin I High Sensitivity 8 8 </=34 ng/L Sodium Level 143 136-145 mmol/L Potassium Level 3.9 3.5-5.1 mmol/L Chloride Level 101 98-107 mmol/L Carbon Dioxide Level 37 H 20-31 mmol/L Anion Gap 5 5-15 Blood Urea Nitrogen 22 9-23 mg/dL Creatinine 0.74 0.550-1.02 mg/dL Glomerular Filtration Rate Calc 78 >90 mL/min BUN/Creatinine Ratio 29.7 H 10.0-20.0 Serum Glucose 190 H 74-106 mg/dL Calcium Level 10.0 8.7-10.4 mg/dL Total Bilirubin 0.2 0.2-1.0 mg/dL Aspartate Amino Transferase (AST) 17 13-40 U/L Alanine Aminotransferase (ALT) 11 7-40 U/L Alkaline Phosphatase 170 H 46-116 U/L B-Type Natriuretic Peptide 127.86 0-100 pg/mL Total Protein 6.0 5.7-8.2 g/dL Albumin 3.9 3.2-4.8 g/dL White Blood Count 3.2 L 4.4-10.8 10^3/uL Red Blood Count 4.05 4.0-5.20 10^6/uL Hemoglobin 10.0 L 12.2-16.2 g/dL Hematocrit 32.6 L 36.0-46.0 % Mean Corpuscular Volume 80.4 80.0-100.0 fL Mean Corpuscular Hemoglobin 24.6 L 28.0-32.0 pg Mean Corpuscular Hemoglobin Concent 30.6 L 32.0-36.0 g/dL Red Cell Distribution Width 17.0 H 11.8-14.3 % Platelet Count 112 L 140-450 10^3/uL Mean Platelet Volume 9.0 6.9-10.8 fL Neutrophils (%) (Auto) 49.3 37.0-80.0 % Lymphocytes (%) (Auto) 36.6 10.0-50.0 % Monocytes (%) (Auto) 11.2 0.0-12.0 % Eosinophils (%) (Auto) 2.6 0.0-7.0 % Basophils (%) (Auto) 0.3 0.0-2.0 % Neutrophils # (Auto) 1.6 1.6-8.6 10 ^3/uL Lymphocytes # (Auto) 1.2 0.4-5.4 10 ^3/uL Monocytes # (Auto) 0.4 0-1.3 10 ^3/uL Eosinophils # (Auto) 0.1 0-0.8 10 ^3/uL Basophils # (Auto) 0 0-0.2 10 ^3/uL Nucleated Red Blood Cells 0.3 % Prothrombin Time 10.9 9.3-11.8 sec Prothrombin Time INR 1.03 0.9-1.15 Activated Partial Thromboplast Time 22.2 L 24.5-34.5 SEC Current Medications Medications (Trade) Dose Ordered Sig/Itzel Route Start Time Stop Time Status Last Admin Acetaminophen/ Hydrocodone Bitart ([place] 5/325MG Tab) 1 tab ONCE ONCE PO 04/26/24 20:30 04/26/24 20:31 DC 04/26/24 20:32 [place] [address] Ph: [phone] DIAGNOSTIC IMAGING Diagnostic Imaging Report : [id number] Signed PATIENT: BREANNA BATISTAACCT: [id number] UNIT: [id number] : 1935 LOC: ER ROOM / BED: / AGE / SEX: 88 / F ADM STATUS: REG ER SERVICE 02 ORDERING PHYSICIAN: GUSTAVO MUIR MD PROCEDURE(s): LFTCT - CT L FOOT WO CONTRAST REASON: ischemic toes ORDER NUMBER(s): [id number], ACCESSION NUMBER(s): [id number] EXAM: CT CT L FOOT WO CONTRAST INDICATION: ischemic toes EXAM DATE: 04/26/2024 07:37 PM COMPARISON: None TECHNIQUE: Multiple axial CT images of the left foot were obtained using bone algorithm. Axial and coronal reformatting was done. Bone and soft tissue windows were reviewed. Radiation Dose Information: CT Dose: CTDI volume is 7.75 mGy. Dose-length product is 236.44 mGy*cm Findings: Limited evaluation given noncontrast technique. There is no evidence of an acute fracture, dislocation, or lytic lesions. Increased central sclerosis of the midfoot and hindfoot. No radiopaque foreign bodies. No joint effusion. Moderate dorsal soft tissue edema. Impression: 1. No evidence of an acute fracture. 2. Increased central sclerosis of the midfoot and hindfoot, nonspecific. May reflect multiple bone infarcts. Recommend MRI for further evaluation. 3. Moderate dorsal soft tissue edema. ATED BY: MICHAELA ZHANG DO DICTATED DATE/TIME: 04/26/242046 SIGNED BY: MICHAELA ZHANG DO SIGNED DATE/TIME: 04/26/242046 [place] [address] Ph: [phone] DIAGNOSTIC IMAGING Diagnostic Imaging Report : [id number] Signed PATIENT: BREANNA BATISTAACCT: [id number] UNIT: [id number] : 1935 LOC: ER ROOM / BED: / AGE / SEX: 88 / F ADM STATUS: REG ER SERVICE 29 ORDERING PHYSICIAN: GUTSAVO MUIR MD PROCEDURE(s): LLEAD - Lt Low Ext Art Duplex REASON: foot ischemia ORDER NUMBER(s): [id number], ACCESSION NUMBER(s): [id number] Left Lower Extremity Arterial Duplex Clinical History: foot ischemia Comparison: None Technique: Duplex Doppler evaluation including color Doppler and spectral/pulsed waveform a nalysis of the lower extremity arteries was performed. 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 IMPRESSION: No hemodynamically significant stenosis based on peak systolic velocity criteria. REFERENCE VALUES, [facility] ([facility]) vascular Imaging Lab Criteria: Peak systolic velocity ranges (in cm/sec) are as follows: <150 cm/s - <20 % stenosis 150-200 cm/s - 20-49% stenosis 200-300 cm/s - 50-75% stenosis >300 cm/s -> 75% stenosis ATED BY: SARA FRANCISCO DO DICTATED DATE/TIME: 04/26/242046 SIGNED BY: SARA FRANCISCO DO SIGNED DATE/TIME: 04/26/242046 PATIENT: MAXIME BATISTAT: [id number] UNIT: [id number] : 1935 LOC: ER ROOM / BED: / AGE / SEX: 88 / F ADM STATUS: REG ER SERVICE 02 ORDERING PHYSICIAN: GUSTAVO MUIR MD PROCEDURE(s): LFOT2 - L FOOT 2 VIEW XRAY REASON: ichemic toes ORDER NUMBER(s): [id number], ACCESSION NUMBER(s): [id number] L FOOT 2 VIEW XRAY, INDICATION: ichemic toes TECHNICAL DATA: Frontal, oblique and lateral views were obtained of the left foot. COMPARISON: None Findings/ IMPRESSION: No acute fracture or dislocation. Limited evaluation due to diffuse bone demineralization. Hallux valgus deformity. Inferior calcaneal enthesophyte. Diffuse soft tissue edema. ATED BY: SARA FRANCISCO DO DICTATED DATE/TIME: 04/26/242006 SIGNED BY: SARA FRANCISCO DO SIGNED DATE/TIME: 04/26/242006 PATIENT: MAXIME BATISTAT: [id number] UNIT: [id number] : 1935 LOC: ER ROOM / BED: / AGE / SEX: 88 / F ADM STATUS: REG ER SERVICE 02 ORDERING PHYSICIAN: GUSTAVO MUIR MD PROCEDURE(s): CXRP - CHEST PORTABLE REASON: foot pain ORDER NUMBER(s): [id number], ACCESSION NUMBER(s): [id number] CHEST RADIOGRAPH Indication: foot pain Technique: Single frontal view of the chest was obtained Comparison: XY CHEST PORTABLE on DOS: 08/31/23, XY CHEST PORTABLE on DOS: 08/12/23, XY CHEST PORTABLE on DOS: 10/29/22 Findings/ IMPRESSION: Low lung volumes otherwise no active cardiopulmonary disease. Limited evaluation due to overlying body habitus ATED BY: SARA FRANCISCO DO DICTATED DATE/TIME: 04/26/241958 SIGNED BY: SARA FRANCISCO DO SIGNED DATE/TIME: 04/26/241958 Time of 1ST Reevaluation: 18:57 Reevaluation 1ST: Unchanged Patient Education/Counseling: Diagnosis, Treatment, Prognosis Family Education/Counseling: No Family Present Departure 1 Departure Time of Disposition: 01:00 Impression: Primary Impression: Acute lower extremity ischemia Additional Impressions: Dementia Qualified Codes: F03.C18 - Unspecified dementia, severe, with other behavioral disturbance DNR (do not resuscitate) Disposition: ADMITTED INPATIENT Admit to: Tele Condition: Guarded Critical Care Note Critical Care Time?: No Stability Stability form required: No I personally scribed for GUSTAVO MUIR MD ([email or web address]) on 04/26/24 at 18:48. Electronically submitted by Deny Henao ([email or web address]). I personally scribed for GUSTAVO MUIR MD ([email or web address]) on 04/26/24 at 21:15. Electronically submitted by Deny Henao ([email or web address]). GUSTAVO MUIR MD Apr 26, 2024 18:48
[2024-04-26 18:58] VITALS: PULSE 63; RESP 25; O2SAT 98
[2024-04-26 19:53] LABS: Basophils # (auto) 0 10 ^3/uL (0-0.2); Basophils % (auto) 0.3 % (0.0-2.0); Eosinophils # (auto) 0.1 10 ^3/uL (0-0.8); Eosinophils % (auto) 2.6 % (0.0-7.0); Hematocrit 32.6 % (36.0-46.0); Lymphocytes # (auto) 1.2 10 ^3/uL (0.4-5.4); Lymphocytes % (auto) 36.6 % (10.0-50.0); Mean Corpuscular Hemoglobin 24.6 pg (28.0-32.0); Mean Corpuscular Hgb Conc. 30.6 g/dL (32.0-36.0); Mean Corpuscular Volume 80.4 fL (80.0-100.0); Monocytes # (auto) 0.4 10 ^3/uL (0-1.3); Monocytes % (auto) 11.2 % (0.0-12.0); Neutrophils # (auto) 1.6 10 ^3/uL (1.6-8.6); Neutrophils % (auto) 49.3 % (37.0-80.0); Nucleated Red Blood Cells % 0.3 %; Platelet Count (auto) 112 10^3/uL (140-450); Red Blood Cells 4.05 10^6/uL (4.0-5.20); White Blood Cell 3.2 10^3/uL (4.4-10.8)
[2024-04-26 20:02] LABS: INR 1.03 (0.9-1.15); Partial Thromboplastin Time 22.2 SEC (24.5-34.5); Prothrombin Time 10.9 sec (9.3-11.8)
--- NOTE | 2024-04-26 20:02 | DVH ---
CHEST RADIOGRAPH Indication: foot pain Technique: Single frontal view of the chest was obtained Comparison: XY CHEST PORTABLE on DOS: 08/31/23, XY CHEST PORTABLE on DOS: 08/12/23, XY CHEST PORTABLE on DOS: 10/29/22 Findings/ IMPRESSION: Low lung volumes otherwise no active cardiopulmonary disease. Limited evaluation due to overlying kassidy dy habitus
--- NOTE | 2024-04-26 20:09 | DVH ---
XY L FOOT 2 VIEW XRAY, INDICATION: ichemic toes TECHNICAL DATA: Frontal, oblique and lateral views were obtained of the left foot. COMPARISON: None Findings/ IMPRESSION: No acute fracture or dislocation. Limited evaluation due to diffuse bone demineralization. Hallux va lgus deformity. Inferior calcaneal enthesophyte. Diffuse soft tissue edema.
[2024-04-26] MEDS: HYDROcodone-ACET 5/325MG TAB PO ONE (20:32)
--- NOTE | 2024-04-26 20:49 | DVH ---
EXAM: CT CT L FOOT WO CONTRAST INDICATION: ischemic toes EXAM DATE: 04/26/2024 07:37 PM COMPARISON: None TECHNIQUE: Multiple axial CT images of the left foot were obtained using bone algorithm. Axial and co michael reformatting was done. Bone and soft tissue windows were reviewed. Radiation Dose Information: CT Dose: CTDI volume is 7.75 mGy. Dose-length product is 236.44 mGy*cm Findings: Limited evaluation given noncontrast technique. There is no evidence of an acute fracture, dislocation, or lytic lesions. Increased central sclerosis of the midfoot and hindfoot. No radiopaque foreign bodies. No joint effusion. Moderate dorsal soft tissue edema. Impression: 1. No evidence of an acute fracture. 2. Increased central sclerosis of the midfoot and hindfoot, nonspecific. May reflect multiple bone in farcts. Recommend MRI for further evaluation. 3. Moderate dorsal soft tissue edema.
--- NOTE | 2024-04-26 20:49 | DVH ---
Left Lower Extremity Arterial Duplex Clinical History: foot ischemia Comparison: None Technique: Duplex Doppler evaluation including color Doppler and spectral/pulsed waveform analysis of the lower extremity arteries was performed. 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 IMPRESSION: No hemodynamically significant stenosis based on peak systolic velocity criteria. REFERENCE VALUES, [facility] ([facility]) vascular Imaging Lab Criteria: Peak systolic velocity ranges (in cm/sec) are as follows: <150 cm/s - <20 % stenosis 150-200 cm/s - 20-49% stenosis 200-300 cm/s - 50-75% stenosis >300 cm/s -> 75% stenosis
[2024-04-26 21:19] LABS: Alanine Aminotransferase 11 U/L (7-40); Anion Gap 5 (5-15); Aspartate Aminotransferase 17 U/L (13-40); BUN/Creatinine Ratio 29.7 (10.0-20.0); Blood Urea Nitrogen 22 mg/dL (9-23); Chloride 101 mmol/L (98-107); Potassium 3.9 mmol/L (3.5-5.1); Sodium 143 mmol/L (136-145)
[2024-04-26 21:20] LABS: Albumin 3.9 g/dL (3.2-4.8)
[2024-04-26 21:25] LABS: Alkaline Phosphatase 170 U/L (46-116); Bilirubin, Total 0.2 mg/dL (0.2-1.0); Carbon Dioxide 37 mmol/L (20-31); Glucose 190 mg/dL (74-106)
[2024-04-26 22:40] VITALS: PULSE 65; RESP 23; O2SAT 98
--- NOTE | 2024-04-26 23:40 | DVHHPRES ---
History of Present Illness Resident Creating Document: JENNIFER MORRIS RESIDENT History of Present Illness Patient is a 88 year old female with the past medical history as described below was brought to the ED with a chief complaint of pain in feet. Patient lives in [facility] and has a history of dementia Alzheimer's disease. According to the report from the EMS, patient reported to the staff at [facility] that her feet were hurting following which the called 911 when the patient was brought to the hospital for further evaluation. Past medical history: Dementia, Alzheimer disease, hypertension, seizure disorder, type 2 diabetes mellitus, hyperlipidemia, COPD, CVA, CHF, arthritis, gout, anxiety, depression Past surgical history: Right mastectomy Social history: Lives in [facility] Medications: Allopurinol 100 mg q.d., donepezil 5 mg q.d., Eliquis 2.5 mg b.i.d. for DVT, Lasix 40 mg q.d., insulin Humulin ACHS, Keppra 500 mg b.i.d., metoprolol tartrate 25 mg b.i.d. Review of Systems Review of Systems Patient was seen and examined at the bedside Alert and oriented to her name but disoriented to time, place and person GCS 15 Patient reports that her feet hurt, pain exacerbates on movement Has mild shortness of breath on O2 support at 2L/min. Small wounds are seen at the tips of right 2nd toe and the left 3rd toe. RN reported that when the patient was cleaned they noticed a small wound in the labium, tunneled wound with no drainage Allergies: Coded Allergies: NO KNOWN ALLERGIES (Unverified , 01/15/19) Exam Vital Signs Vital Signs Date Time Temp Pulse Resp B/P (MAP) Pulse Ox O2 Delivery O2 Flow Rate FiO2 04/26/24 22:40 65 23 98 Nasal Cannula* 2 28 04/26/24 18:58 98.1 131/47 (75) 98.1 Exam Physical Examination Gen - no pallor, no icterus, no cyanosis, no clubbing, no LAD, 1+ pedal edema . Skin - Patients skin is warm and dry. HEENT - normocephalic, atraumatic, moist mucous membranes. Neck - full ROM, no LAD, no JVD Pulmonary - B/L decreased breath sounds. no crackles , no wheezing, no stridor. cardiovascular - normal S1,S2 heard. no murmurs heard. peripheral pulses radial 2+, pedal 1+. capillary refill normal <2 secs. GI - soft abdomen without tenderness to palpation. no hepatospleenomegaly. Bowel sounds normoactive Neurological - Patient is A/O X 1. B/L upper extremity strength 3/5, Patient is not able to move lower extremities. Speech comprehensible, no facial droop, no tremor, has pain in the B/L lower extremeties Extremities- right 2nd toe wound, left 3rd toe wound. both feet are in plantar flexion and inversion. Labs/Xrays Labs Test 04/26/24 21:50 04/26/24 20:30 04/26/24 19:25 Range/Units Troponin I High Sensitivity 8 </=34 ng/L Sodium Level 143 136-145 mmol/L Potassium Level 3.9 3.5-5.1 mmol/L Chloride Level 101 98-107 mmol/L Carbon Dioxide Level 37 H 20-31 mmol/L Anion Gap 5 5-15 Blood Urea Nitrogen 22 9-23 mg/dL Creatinine 0.74 0.550-1.02 mg/dL Glomerular Filtration Rate Calc 78 >90 mL/min BUN/Creatinine Ratio 29.7 H 10.0-20.0 Serum Glucose 190 H 74-106 mg/dL Calcium Level 10.0 8.7-10.4 mg/dL Total Bilirubin 0.2 0.2-1.0 mg/dL Aspartate Amino Transferase (AST) 17 13-40 U/L Alanine Aminotransferase (ALT) 11 7-40 U/L Alkaline Phosphatase 170 H 46-116 U/L B-Type Natriuretic Peptide 127.86 0-100 pg/mL Total Protein 6.0 5.7-8.2 g/dL Albumin 3.9 3.2-4.8 g/dL White Blood Count 3.2 L 4.4-10.8 10^3/uL Red Blood Count 4.05 4.0-5.20 10^6/uL Hemoglobin 10.0 L 12.2-16.2 g/dL Hematocrit 32.6 L 36.0-46.0 % Mean Corpuscular Volume 80.4 80.0-100.0 fL Mean Corpuscular Hemoglobin 24.6 L 28.0-32.0 pg Mean Corpuscular Hemoglobin Concent 30.6 L 32.0-36.0 g/dL Red Cell Distribution Width 17.0 H 11.8-14.3 % Platelet Count 112 L 140-450 10^3/uL Mean Platelet Volume 9.0 6.9-10.8 fL Neutrophils (%) (Auto) 49.3 37.0-80.0 % Lymphocytes (%) (Auto) 36.6 10.0-50.0 % Monocytes (%) (Auto) 11.2 0.0-12.0 % Eosinophils (%) (Auto) 2.6 0.0-7.0 % Basophils (%) (Auto) 0.3 0.0-2.0 % Neutrophils # (Auto) 1.6 1.6-8.6 10 ^3/uL Lymphocytes # (Auto) 1.2 0.4-5.4 10 ^3/uL Monocytes # (Auto) 0.4 0-1.3 10 ^3/uL Eosinophils # (Auto) 0.1 0-0.8 10 ^3/uL Basophils # (Auto) 0 0-0.2 10 ^3/uL Nucleated Red Blood Cells 0.3 % Prothrombin Time 10.9 9.3-11.8 sec Prothrombin Time INR 1.03 0.9-1.15 Activated Partial Thromboplast Time 22.2 L 24.5-34.5 SEC Assessment/Plan Assessment/Plan Assessment and plan # Acute on chronic hypoxic respiratory failure likely d/t COPD vs CHF exacerbation - Serum bicarb elevated - on 2L O2 via NC - duonebs prn # Right 2nd toe wound # Left 3rd toe wound # ?Toe ischaemia # SIRS positive - Left lower extremity arterial duplex shows no hemodynamically significant stenosis - Right lower ext. arterial duplex pending - on vancomycin per pharmacy - wound culture pending - wound care consult - podiatary consult # Labial wound - RN reported wound in the labia while cleaning the patient, no drainage from the wound - wound consult pending # Hypertensive heart disease # acute on chronic HFpEF - ECHO from august 2023 shows LVEF 55% with grade 1 diastolic dysfunction. Mild to moderate pulmonary hypertension, elevated right ventricular systolic pressure@ 44 mmg - ECHO pending - on metoprolol tartrate 25mg bid - Lasix 20mg IV qd # H/o DVT - continued on apixaban 2.5mg bid - B/L lower ext. venous duplex pending # T2DM with hyperglycemia - on moderate ISS AC - Hba1C pending # H/o Alzheimer's disease - on donepezil 5mg hs # H/o seizure disorder - On keppra 500mg bid # H/o Gout - on allopurinol 100mg qd # microcytic hypochromic anemia - iron panel pending Goals of care discussed with the RN(Vaishali) for over 27 mins. Code status- DNR Plan discussed with Plan discussed with: Other (RN ( Vaishali )) Date of Service: Apr 26, 2024 Billing Provider: DASIA TYSON MD Common Visit Codes: 38017-[id number] INP/OBS CARE (HIGH) Secondary Visit Codes: 27589-[id number] CARE PLAN 30 MINUTES JENNIFER MORRIS RESIDENT Apr 26, 2024 23:40 DASIA TYSON MD Apr 27, 2024 09:25
[2024-04-26] MEDS ORDERED: NITROGLYCERIN 0.4 MG SL TAB SL PRN (23:45)
[2024-04-26] MEDS ORDERED: MORPHINE SULFATE INJ 2 MG/ml SYRG IV PRN (23:45)
[2024-04-27] VITALS (7 sets, daily range): BP systolic 101–134; BP diastolic 44–65; PULSE 62–76; RESP 16–26; TEMP 98.4–98.5; O2SAT 95–100
[2024-04-27] MEDS ORDERED: DEXTROSE (50%) 50ML SYRG IV PRN
[2024-04-27] MEDS ORDERED: hydrALAZINE HCL 20 MG/ML VL IV PRN
[2024-04-27] MEDS: ACCU-CHEK COMFORT CURVE STRIP VI SCH ×2 (01:17→06:52)
[2024-04-27] MEDS: InsuLIN REG 1unit/0.01ml Soln (100units/ml) SC SCH ×2 (01:34→06:52)
[2024-04-27] MEDS: DONEPEZIL HYDROCHLORIDE 5 MG TAB PO ONE (01:40)
[2024-04-27] MEDS: FUROSEMIDE 20 MG/2 ML VIAL IV ONE (01:44)
[2024-04-27] MEDS: levETIRAcetam 500 MG/5ML ORAL SOLN UD PO ONE (01:45)
[2024-04-27] MEDS: levETIRAcetam 500 MG TAB PO ONE (02:31)
[2024-04-27 03:08] LABS: Urine Bacteria None Seen /hpf (None Seen)
[2024-04-27 03:27] LABS: Urine Blood Negative /uL (Negative); Urine Clarity Clear (Clear); Urine Color Light-Yellow (Yellow); Urine Hyaline Cast FEW /lpf (0 - 2); Urine Protein, UAD Negative (Negative); Urine Specific Gravity 1.013 (1.001-1.035); Urine Urobilinogen Normal (Negative); Urine WBC 1 /hpf (0 - 5); Urine pH 5.5 (5.0-9.0)
--- NOTE | 2024-04-27 03:53 | DVH ---
Bilateral lower extremity venous duplex Clinical History: edema Comparison: US RT UPPER DVT on DOS: 08/28/23 Technique: Duplex Doppler evaluation of the deep venous systems of both lower extremities from the common femora l veins to the popliteal veins including color Doppler and spectral/pulsed waveform analysis was perf ormed. Findings: RIGHT SIDE: The common femoral vein demonstrates appropriate compressibility and waveform variability. There is compressibility/patency of the great saphenous vein at the proximal thigh. The femoral vein demonstrates appropriate compressibility and waveform variability. The deep femoral vein demonstrates appropriate compressibility and waveform variability. The popliteal vein demonstrates appropriate compressibility and waveform variability. There is normal compressibility at the tibioperoneal trunk. LEFT SIDE: The common femoral vein demonstrates appropriate compressibility and waveform variability. There is compressibility/patency of the great saphenous vein at the proximal thigh. The femoral vein demonstrates appropriate compressibility and waveform variability. The deep femoral vein demonstrates appropriate compressibility and waveform variability. The popliteal vein demonstrates appropriate compressibility and waveform variability. There is normal compressibility at the tibioperoneal trunk. Impression: No right or left femoropopliteal venous thrombosis.
[2024-04-27] MEDS ORDERED: CLINDAMYCIN 600MG IV 50 ML IV SCH (06:00)
[2024-04-27] MEDS ORDERED: VANCOMYCIN PER PHARMACY 0 MG IV SCH (06:15)
[2024-04-27] MEDS: VANCOMYCIN 1GM/250ML KIT 250 ML IV SCH (06:38)
[2024-04-27] MEDS ORDERED: LORazepam 2MG/ML-1ML VIAL IV PRN (07:30)
[2024-04-27] MEDS ORDERED: MORPHINE SULFATE INJ 2 MG/ml SYRG IV PRN (07:30)
--- NOTE | 2024-04-27 09:22 | DVH ---
BILATERAL Lower Extremity Arterial Duplex Date: 04/27/2024 08:26 AM Clinical History: right 2nd toe ulcer Comparison: US LT LOW EXT ART DUPLEX on DOS: 04/26/24 Technique: Duplex Doppler evaluation including color Doppler and spectral/pulsed waveform analysis of the lower extremity arteries was performed. Finding: RIGHT: Peak systolic velocities are as follows: POLE PEELER 112 cm/s Deep femoral 70 cm/s SFA proximal 97 cm/s SFA mid-portion 85 cm/s SFA distal 76 cm/s Popliteal not seen Posterior tibial 21 cm/s Anterior tibial 108 cm/s Dorsalis pedis 141 cm/s The waveforms are triphasic with diastolic flow seen in the posterior tibial artery. REFERENCE VALUES, [facility] ([facility]) vascular Imaging Lab Criteria: Peak systolic velocity ranges (in cm/sec) are as follows: <150 cm/s - <20 % stenosis 150-200 cm/s - 20-49% stenosis 200-300 cm/s - 50-75% stenosis >300 cm/s -> 75% stenosis IMPRESSION: There is no evidence for peripheral vascular insufficiency in the right lower extremity. No significant focal stenosis is identified. Monophasic waveform posterior tibial artery.
[2024-04-27] MEDS ORDERED: levETIRAcetam 500 MG TAB PO SCH (10:00)
[2024-04-27] MEDS ORDERED: APIXABAN 2.5 MG TAB PO SCH (10:00)
[2024-04-27] MEDS ORDERED: APIXABAN 5 MG TAB PO SCH (10:00)
[2024-04-27] MEDS: ALLOPURINOL 100 MG TAB PO SCH (10:37)
[2024-04-27] MEDS: METOPROLOL TARTRATE 25 MG TAB PO SCH (10:37)
[2024-04-27] MEDS: APIXABAN 5 MG TAB PO SCH (10:37)
[2024-04-27] MEDS: FUROSEMIDE 20 MG/2 ML VIAL IV SCH (10:38)
[2024-04-27 13:17] LABS: Basophils # (auto) 0 10 ^3/uL (0-0.2); Basophils % (auto) 0.2 % (0.0-2.0); Eosinophils # (auto) 0.1 10 ^3/uL (0-0.8); Eosinophils % (auto) 2.2 % (0.0-7.0); Hematocrit 33.1 % (36.0-46.0); Hemoglobin 10.2 g/dL (12.2-16.2); Lymphocytes # (auto) 1.3 10 ^3/uL (0.4-5.4); Lymphocytes % (auto) 32.3 % (10.0-50.0); Mean Corpuscular Hgb Conc. 30.7 g/dL (32.0-36.0); Mean Corpuscular Volume 78.3 fL (80.0-100.0); Monocytes # (auto) 0.4 10 ^3/uL (0-1.3); Monocytes % (auto) 9.7 % (0.0-12.0); Neutrophils # (auto) 2.2 10 ^3/uL (1.6-8.6); Neutrophils % (auto) 55.6 % (37.0-80.0); Nucleated Red Blood Cells % 0.2 %; Platelet Count (auto) 151 10^3/uL (140-450); Red Blood Cells 4.23 10^6/uL (4.0-5.20); Red Cell Distribution Width 16.3 % (11.8-14.3); White Blood Cell 3.9 10^3/uL (4.4-10.8)
[2024-04-27 13:45] LABS: Alanine Aminotransferase 13 U/L (7-40); Albumin 3.7 g/dL (3.2-4.8); Anion Gap 4 (5-15); Aspartate Aminotransferase 21 U/L (13-40); BUN/Creatinine Ratio 25.7 (10.0-20.0); Bilirubin, Total 0.3 mg/dL (0.2-1.0); Blood Urea Nitrogen 18 mg/dL (9-23); Calcium 9.8 mg/dL (8.7-10.4); Chloride 101 mmol/L (98-107); Cholesterol 175 mg/dL (< 200); HDL Cholesterol 52 mg/dL (40-59); LDL Cholesterol 97 mg/dL (< 100); Potassium 3.8 mmol/L (3.5-5.1); Sodium 140 mmol/L (136-145); Total Protein 5.7 g/dL (5.7-8.2)
[2024-04-27 13:50] LABS: Alkaline Phosphatase 151 U/L (46-116); Carbon Dioxide 35 mmol/L (20-31); Glucose 201 mg/dL (74-106); Magnesium 1.5 mg/dL (1.6-2.6); Triglycerides 166 mg/dL (< 150)
[2024-04-27] MEDS: levETIRAcetam 500 MG TAB PO SCH (14:00)
--- NOTE | 2024-04-27 14:13 | DVHPNRES ---
Progress Note Date Seen: Apr 27, 2024 Resident Creating Document: AMILCAR LANDRY RESIDENT Medical Necessity Reason Pt with a Central, PICC or Fol: No Subjective Review of Systems Patient is 88 years old female with past medical history of hypertension, diabetes mellitus type 2, hyperlipidemia,, history of Right upper extremity axillary vein DVT, COPD, CVA, CHF, seizure disorder, arthritis, gout, anxiety, depression, dementia, emergency was brought in to the ER due to bilateral foot pain. Patient was brought in from retirement due to bilateral foot pain. Patient with dementia and very poor historian, information was provided from reviewing the chart from the ER and from ER physician. Patient complained of bilateral foot pain, with a suspicion of ischemic pain or due to pressure vascular disease, patient could not verify how long she had this pain and nursing facility called 911 and sent her to the [facility] for further evaluation and care. Patient is AAOX1. Initial lab workup revealed leukopenia WBC 3.2, anemia with a hemoglobin 10.0, thrombocytopenia with platelet 112, blood sugar 190, BNP 127, troponin I 8, urinalysis negative for UTI other blood workup was with a normal limit. CXR revealed low lung volume without any acute cardiopulmonary disease. Left foot CT scan revealed- No evidence of an acute fracture Increased central sclerosis of the midfoot and hindfoot, nonspecific. May reflect multiple bone infarcts. Recommend MRI for further evaluation. Moderate dorsal soft tissue edema. X-ray left foot revealed-No acute fracture or dislocation. Limited evaluation due to diffuse bone demineralization. Hallux valgus deformity. Inferior calcaneal enthesophyte. Diffuse soft tissue edema. Arterial Doppler of the bilateral lower extremity revealed no significant arterial stenosis. Doppler study of the lower extremity was negative for DVT. Past medical history: Seizure disorder, Dementia, Alzheimer disease, hypertension, seizure disorder, type 2 diabetes mellitus, hyperlipidemia, COPD, CVA, CHF, arthritis, gout, anxiety, depression Past surgical history: Right mastectomy Social history: Lives in [facility] Medications: Allopurinol 100 mg q.d., donepezil 5 mg q.d., Eliquis 2.5 mg b.i.d. for DVT, Lasix 40 mg q.d., insulin Humulin ACHS, Keppra 500 mg b.i.d., metoprolol tartrate 25 mg b.i.d. Allergy- NKDA Patient was seen today at the bedside. Patient is a poor historian, details of the history could not be obtained. But patient complained of pain all over his body especially in the bilateral foot. Patient was seen today for clinical evaluation. Labs and chart reviewed. Patient complained of ongoing bilateral foot pain, patient is tachypneic with respiratory rate 26 per minute on NC O2 2 liter/minute, blood pressure was attempts elevated. CXR revealed low lung volume without any acute cardiopulmonary disease. Left foot CT scan revealed- No evidence of an acute fracture Increased central sclerosis of the midfoot and hindfoot, nonspecific. May reflect multiple bone infarcts. Recommend MRI for further evaluation. Moderate dorsal soft tissue edema. X-ray left foot revealed-No acute fracture or dislocation. Limited evaluation due to diffuse bone demineralization. Hallux valgus deformity. Inferior calcaneal enthesophyte. Diffuse soft tissue edema. Arterial Doppler of the bilateral lower extremity revealed no significant arterial stenosis. Doppler study of the lower extremity was negative for DVT. Echo 2D revealed- Normal left ventricular size and dimension. Normal left ventricular systolic function with estimated ejection fraction of 60%. There is a grade 1 diastolic dysfunction. Normal right ventricular size and dimension. Normal right ventricular systolic function. Provider called-[facility] [phone] to reach out to the nurse to care of the patient to learn more about the patient and medically status. Not available on the phone, nobody picked up after phone was transferred to the facility. Objective vital signs Vital Sign Date Time Temp Pulse Resp B/P (MAP) Pulse Ox O2 Delivery O2 Flow Rate FiO2 04/27/24 10:38 147/48 04/27/24 10:37 72 04/27/24 08:00 26 98 Nasal Cannula* 2 28 04/27/24 08:00 98.4 98.4 medications Current Medications Medications Dose Ordered Sig/Itzel Route Start Time Stop Time Status Last Admin Dose Admin Nitroglycerin 0.4 mg Q5MINP PRN SL 04/26/24 23:45 Morphine Sulfate 2 mg Q30M PRN IV 04/26/24 23:45 Furosemide 20 mg DAILY IV 04/27/24 10:00 04/27/24 10:38 20 MG Donepezil HCl 5 mg HS PO 04/27/24 22:00 Apixaban 2.5 mg BID PO 04/27/24 10:00 UNV Metoprolol Tartrate 25 mg BID PO 04/27/24 10:00 04/27/24 10:37 25 MG Dextrose 50 ml UD PRN IV 04/27/24 00:00 Acetaminophen/ Hydrocodone Bitart 1 tab Q6HPRN PRN PO 04/27/24 00:00 Hydralazine HCl 10 mg Q6HP PRN IV 04/27/24 00:00 Levetiracetam 500 mg BID PO 04/27/24 10:00 UNV Levetiracetam 500 mg Q12H PO 04/27/24 14:00 Apixaban 2.5 mg BID PO 04/27/24 10:00 04/27/24 10:37 2.5 MG Insulin Human Regular AC SC 04/27/24 07:00 Diagnostic Test (Pha) 1 strip AC 04/27/24 07:00 04/27/24 06:52 1 STRIP Allopurinol 100 mg DAILY PO 04/27/24 10:00 04/27/24 10:37 100 MG Albuterol 2.5 mg Q6HPRN PRN NEB 04/27/24 04:30 Ipratropium [place] 0.5 mg Q6HPRN PRN NEB 04/27/24 04:30 Vancomycin HCl 0 ml @ 0 mls/hr UD IV 04/27/24 06:15 Morphine Sulfate 2 mg Q3HPRN PRN IV 04/27/24 07:30 Lorazepam 1 mg Q3HPRN PRN IV 04/27/24 07:30 Examination General examination- patient with poor memory HEENT- PEERLA, no acute nasal discharge Cardiovascular- S1-S2 audible, rate and rhythm regular, no murmur Respiratory- CTAB, no wheeze or rhonchi Gastrointestinal-nontender, bowel sound+. Nondistended Musculoskeletal-no acute joint swelling or tenderness or redness# Lower extremity- bilateral leg edema++, palpable bilateral arterial dorsalis pedis+ Neurological- cranial nerves intact, no acute dysarthria or dysphagia Psychiatry- denies depression or SI or HI Skin- no acute rash or purpura laboratory and microbiology Laboratory Tests 04/27/24 12:50 Test 04/27/24 12:50 Range/Units Serum Glucose Pending Problem List/Assessment/Plan Problem List/Assessment/Plan # acute hypoxic respiratory failure likely due to acute on chronic exacerbation of COPD/acute on chronic heart failure -patient on NC O2 2 liter/minute, unable to complete a full sentence -negative for troponin I, BNP 127, -continue evaluation as prescribed -continue Lasix as prescribed -Echo 2D-Normal left ventricular size and dimension. Normal left ventricular systolic function with estimated ejection fraction of 60%. There is a grade 1 diastolic dysfunction. # acute on chronic COPD -patient on NC O2 2 liter/minute, unable to complete a full sentence -echo 2D-Normal left ventricular size and dimension. Normal left ventricular systolic function with estimated ejection fraction of 60%. There is a grade 1 diastolic dysfunction. # suspected acute on chronic heart failure/HFpEF -echo 2D on 08/17/2023- LVEF 55%, grade 1 diastolic dysfunction, -continue Lasix 20 mg IV daily # Bilateral foot pain likely due to microvascular ischemia -bilateral arterial Doppler negative for significant arterial stenosis -pending podiatry consult # bilateral leg edema -Doppler study negative for DVT -continue Lasix 20 mg daily # peripheral neuropathy likely diabetic neuropathy -patient complained of pain all over the body -continue pain medication as prescribed # history of Right upper extremity axillary vein DVT -continue Eliquis 2.5 mg p.o. b.i.d. # history of seizure disorder -continue home medications Keppra 500 mg p.o. b.i.d. # hypertension, -continue hydralazine 10 mg q.6h p.r.n. # diabetes mellitus type 2 -HGB A1c 7.1 -continue insulin sliding scale as prescribed # hyperlipidemia -continue atorvastatin 20 mg q.h.s. # CVA, -continue current medication # anemia likely anemia of chronic disease -pending iron panel # pancytopenia -monitor CBC # arthritis -continue pain medication as prescribed #Gout, -continue allopurinol 100 mg p.o. daily #anxiety, -continue current medication #depression, -continue current medications #dementia, Alzheimer's dementia -resume home medications Goals of care/advance care planning; FULL CODE; discussed with the patient >15 minutes PUD prophylaxis: Famotidine DVT prophylaxis: Eliquis Plan discussed with Dr. Cuellar, nursing staff, patient Total time spent on patient evaluation, chart review, assessment and plan, discussion discussion >30 minutes Plan discussed with: Patient Plan discussed with: Patient, Other (RN) My Orders My Orders Orders - AMILCAR LANDRY RESIDENT Procedure Category Date Status Time Electrocardigram EKG 04/27/24 Logged 08:51 Date of Service: Apr 27, 2024 Billing Provider: RENE CUELLAR MD Common Visit Codes: [id number] INP/OBS CARE(HIGH) Secondary Visit Codes: [id number] CARE PLAN 30 MINUTES AMILCAR LANDRY RESIDENT Apr 27, 2024 14:13 RENE CUELLAR MD Apr 27, 2024 20:29
--- NOTE | 2024-04-27 14:28 | DVHSR ---
APPROVED REPORT EXAM: LIMITED Two-dimensional and M-mode echocardiogram with Doppler and color Doppler. Blood Pressure: 129/76 mmHg INDICATION H/O HFPEF with SOB RISK FACTORS Obesity: Height: 5' 4", Weight: 220 DIMENSIONS LVDd4.4 (3.8-5.7cm)LA (2D) (1.9-4.0cm)Aortic Root (2.0-3.7cm) LVDs2.8 (2.5-4.0cm)LA (MM) (1.9-4.0cm)Aortic Cusp Exc (1.5-2.0cm) EF (%) 67.0 (55-70%)Rt. Atrium (1.9-4.0cm)Asc. Aorta cm IVSd1.6 (0.7-1.1cm)RV (D) (1.8-2.4cm) PWd1.4 (0.7-1.1cm) Mitral Valve MitralMitral Stenosis E wave0.90m/sMV Mean GR.mmHg A wave1.10m/sMV Peak GR.mmHg E/A ratio0.82D MVAcm2 Aortic Valve Aortic ValveAortic Stenosis V11.20m/Reginaldo Mean GR.6mmHg V21.70m/Reginaldo Peak GR.12mmHg LVOT Diameter1.8 (1.8-2.4cm)Doppler AVA1.80cm2 Pulmonic Valve V21.00m/s Tricuspid Valve TR Velocity2.10m/s [id number] Other Information Quality : Technically LimitedRhythm : Technically limited study due to body habitus. Conclusion Normal left ventricular size and dimension. Normal left ventricular systolic function with estimated ejection fraction of 60%. There is a grade 1 diastolic dysfunction. Normal right ventricular size and dimension. Normal right ventricular systolic function. Normal biatrial size and dimension. Normal aortic valve structure and function. There is mild aortic valve sclerosis. Normal mitral valve structure and function. Normal tricuspid valve structure function. The pulmonary valve is grossly normal. No pericardial effusion.
[2024-04-27] MEDS: HYDROcodone-ACET 5/325MG TAB PO PRN (15:04)
[2024-04-27 15:54] LABS: % Iron Saturation 25.7 % (15-50)
[2024-04-27] MEDS: FAMOTIDINE (10MG/ML) 2ML VL IV SCH (16:41)
[2024-04-27] MEDS: amLODIPine BESYLATE 5 MG TAB PO SCH (16:47)
[2024-04-27] MEDS ORDERED: DONEPEZIL HYDROCHLORIDE 5 MG TAB PO SCH (22:00)
[2024-04-27] MEDS ORDERED: levETIRAcetam 500 MG/5ML ORAL SOLN UD PO SCH (22:00)
[2024-04-27] MEDS: ATORVASTATIN 20 MG TAB PO SCH (23:36)
[2024-04-27] MEDS: risperiDONE 1 MG TAB PO SCH (23:36)
[2024-04-28] VITALS (11 sets, daily range): BP systolic 122–137; BP diastolic 53–70; PULSE 66–76; RESP 17–19; TEMP 97.9–98.7; O2SAT 94–98
[2024-04-28] MEDS: VANCOMYCIN 1.25GM/250ML 250 ML IV SCH
[2024-04-28 06:37] LABS: Basophils # (auto) 0 10 ^3/uL (0-0.2); Basophils % (auto) 0.2 % (0.0-2.0); Eosinophils # (auto) 0.1 10 ^3/uL (0-0.8); Lymphocytes # (auto) 1.3 10 ^3/uL (0.4-5.4); Monocytes # (auto) 0.4 10 ^3/uL (0-1.3); Neutrophils # (auto) 1.9 10 ^3/uL (1.6-8.6)
[2024-04-28 06:40] LABS: Eosinophils % (auto) 1.8 % (0.0-7.0); Hematocrit 30.9 % (36.0-46.0); Lymphocytes % (auto) 35.8 % (10.0-50.0); Mean Corpuscular Hemoglobin 25.2 pg (28.0-32.0); Mean Corpuscular Hgb Conc. 32.3 g/dL (32.0-36.0); Mean Corpuscular Volume 78.1 fL (80.0-100.0); Neutrophils % (auto) 52.2 % (37.0-80.0); Nucleated Red Blood Cells % 0.3 %; Platelet Count (auto) 118 10^3/uL (140-450); Red Blood Cells 3.96 10^6/uL (4.0-5.20); Red Cell Distribution Width 15.8 % (11.8-14.3); White Blood Cell 3.6 10^3/uL (4.4-10.8)
[2024-04-28 06:46] LABS: Alanine Aminotransferase 11 U/L (7-40); Albumin 3.6 g/dL (3.2-4.8); Anion Gap 6 (5-15); Aspartate Aminotransferase 17 U/L (13-40); Blood Urea Nitrogen 20 mg/dL (9-23); Calcium 9.8 mg/dL (8.7-10.4); Chloride 101 mmol/L (98-107); Cholesterol 175 mg/dL (< 200); HDL Cholesterol 50 mg/dL (40-59); Magnesium 1.7 mg/dL (1.6-2.6); Potassium 3.9 mmol/L (3.5-5.1); Sodium 141 mmol/L (136-145); Triglycerides 112 mg/dL (< 150)
[2024-04-28 06:47] LABS: Bilirubin, Total 0.4 mg/dL (0.2-1.0)
[2024-04-28 06:48] LABS: Alkaline Phosphatase 148 U/L (46-116); Carbon Dioxide 34 mmol/L (20-31); Glucose 136 mg/dL (74-106); LDL Cholesterol 101 mg/dL (< 100); Total Protein 5.6 g/dL (5.7-8.2)
[2024-04-28] MEDS: MAGNESIUM SULFATE 1GM/100ML 100 ML IV ONE (07:03)
--- NOTE | 2024-04-28 09:08 | DVHINCON2 ---
Date Seen: Apr 28, 2024 Reason for Consultation Concern for ischemic toes History of Present Illness Patient is a 88 year old female with the past medical history as described below was brought to the ED with a chief complaint of pain in feet. Patient lives in [facility] and has a history of dementia Alzheimer's disease. According to the report from the EMS, patient reported to the staff at [facility] that her feet were hurting following which the called 911 when the patient was brought to the hospital for further evaluation. Past Medical History See H&P Past Surgical History See H&P Family History: FH: lung cancer G8 SISTER FH: uterine cancer G8 MOTHER Allergies: Coded Allergies: NO KNOWN ALLERGIES (Unverified , 01/15/19) Home Meds Active Scripts Isavuconazonium Sulfate (Cresemba) 186 Mg Cap, 186 MG PO DAILY for 30 Days, #60 CAP Prov:ROSA LUX MD 08/17/23 Reported Medications Furosemide (Furosemide) 40 Mg Tab, 1 TAB PO DAILY for 30 Days, #30 04/27/24 Nitroglycerin (Nitrostat) 0.4 Mg Sub, 1 TAB SL UD for 30 Days, #100 04/27/24 Apixaban Base (ELIQUIS) 2.5 Mg Tab, 1 TAB PO BID for 14 Days, #28 04/27/24 Atorvastatin Calcium (Lipitor) 10 Mg Tab, 1 TAB PO DAILY for 30 Days, #30 04/27/24 Famotidine (Famotidine) 20 Mg Tab, 1 TAB PO DAILY for 30 Days, #30 08/14/23 Amlodipine Besylate (Amlodipine Besylate) 5 Mg Tab, 1 TAB PO DAILY 08/14/23 Levetiracetam (Levetiracetam) 100 Mg/Ml Ara, PO BID for 30 Days, #300 Take 10 mL by mouth at 9 AM, and 15 mL by mouth at 9 PM for seizures. 08/14/23 Sertraline HCl (Sertraline Hydrochloride) 100 Mg Tab, 1 TAB PO DAILY for 30 Days, #30 01/10/22 Risperidone (RisperDAL TABLET) 1 Mg Tb, 1 TAB PO QPM, #30 TAB 1 Refill 01/10/22 Metoprolol Tartrate (Metoprolol Tartrate) 25 Mg Tab, 1 TAB PO BID for 30 Days, #60 01/10/22 Insulin Regular (Human) (Humulin R) 100 Unit/Ml Inj, SC BID for 28 Days, #10 Per sliding scale 01/10/22 Clonidine Hydrochloride (Clonidine Hcl) 0.1 Mg Tab, 0.1 MG PO BID 01/10/22 Donepezil Hydrochloride (Aricept) 5 Mg Tab, 5 MG PO DAILY, TAB 01/10/22 Allopurinol (Allopurinol) 100 Mg Tab, 1 TAB PO DAILY for 30 Days, #30 01/10/22 Discontinued Reported Medications Atorvastatin Calcium (Lipitor) 20 Mg Tab, 1 TAB PO HS, #90 TAB 1 Refill 01/10/22 Current Medications Current Medications Medications (Trade) Dose Ordered Sig/Itzel Route PRN Reason Start Time Stop Time Status Last Admin Furosemide (Lasix Injection) 20 mg DAILY IV 04/27/24 10:00 04/27/24 10:38 Donepezil HCl (Aricept Tablet) 5 mg HS PO 04/27/24 22:00 04/27/24 14:07 DC Apixaban (Eliquis) 2.5 mg BID PO 04/27/24 10:00 UNV Metoprolol Tartrate (Lopressor Tablet) 25 mg BID PO 04/27/24 10:00 04/27/24 23:41 Levetiracetam (Keppra Oral Solution) 500 mg BID PO 04/27/24 22:00 04/27/24 02:04 DC Apixaban (Eliquis) 5 mg BID PO 04/27/24 10:00 04/27/24 03:33 DC Levetiracetam (Keppra Tablet) 500 mg BID PO 04/27/24 10:00 UNV Levetiracetam (Keppra Tablet) 500 mg Q12H PO 04/27/24 14:00 04/28/24 02:49 Apixaban (Eliquis) 2.5 mg BID PO 04/27/24 10:00 04/27/24 23:37 Allopurinol (Zyloprim Tablet) 100 mg DAILY PO 04/27/24 10:00 04/27/24 10:37 Famotidine (Pepcid Injection) 20 mg DAILY IV 04/27/24 14:20 04/27/24 16:41 Amlodipine Besylate (Norvasc Tablet) 5 mg DAILY PO 04/27/24 14:19 04/27/24 16:47 Atorvastatin Calcium (Lipitor) 20 mg HS PO 04/27/24 22:00 04/27/24 23:36 Donepezil HCl (Aricept Tablet) 5 mg DAILY PO 04/28/24 10:00 Risperidone (RisperDAL TABLET) 1 mg HS PO 04/27/24 22:00 04/27/24 23:36 Vancomycin HCl 250 ml @ 200 mls/hr Q18H IV 04/28/24 00:00 04/28/24 00:00 Vital Signs Vital Signs Date Time Temp Pulse Resp B/P (MAP) Pulse Ox O2 Delivery O2 Flow Rate FiO2 04/28/24 06:41 97.9 70 18 137/53 (81) 95 97.9 04/27/24 20:00 Nasal Cannula* 2 28 Physical Exam DERMATOLOGIC EXAM: - Nails 1-5 of the bilateral foot are thickened, discolored, dystrophic, and tender to palpate with subungual debris - No open lesions or wounds noted bilaterally - No hyperkeratotic lesions noted bilaterally. - Hair loss noted to bilateral feet - Skin is shiny and thin bilateral feet VASCULAR EXAM: - DP and PT pulses are palpable bilaterally. - HAT MODEL is brisk to all digits. - Feet are cool to touch compared to lower legs bilaterally. - 1+ edema noted to the leg, foot, and ankle bilaterally. NEUROLOGIC EXAM: - Normal light touch sensation to the superficial peroneal, deep peroneal, sural, saphenous, and tibial nerve branches. - Protective sensation is diminished as tested with a 5.07 10g [place] Monofilament bilaterally. - Vibratory sensation absent to medial 1st MPJ bilaterally MUSCULOSKELETAL EXAM: - No gross deformities - Muscle strength is 5/5 and active motion is pain-free and symmetrical bilaterally - No pain or crepitation with passive range of motion bilaterally to all major pedal joints Labs/Diagnostic Data Labs Test 04/28/24 05:43 04/27/24 16:48 04/27/24 15:11 04/27/24 02:52 Range/Units White Blood Count 3.6 L 4.4-10.8 10^3/uL Red Blood Count 3.96 L 4.0-5.20 10^6/uL Hemoglobin 10.0 L 12.2-16.2 g/dL Hematocrit 30.9 L 36.0-46.0 % Mean Corpuscular Volume 78.1 L 80.0-100.0 fL Mean Corpuscular Hemoglobin 25.2 L 28.0-32.0 pg Mean Corpuscular Hemoglobin Concent 32.3 32.0-36.0 g/dL Red Cell Distribution Width 15.8 H 11.8-14.3 % Platelet Count 118 L 140-450 10^3/uL Mean Platelet Volume 9.6 6.9-10.8 fL Neutrophils (%) (Auto) 52.2 37.0-80.0 % Lymphocytes (%) (Auto) 35.8 10.0-50.0 % Monocytes (%) (Auto) 10.0 0.0-12.0 % Eosinophils (%) (Auto) 1.8 0.0-7.0 % Basophils (%) (Auto) 0.2 0.0-2.0 % Neutrophils # (Auto) 1.9 1.6-8.6 10 ^3/uL Lymphocytes # (Auto) 1.3 0.4-5.4 10 ^3/uL Monocytes # (Auto) 0.4 0-1.3 10 ^3/uL Eosinophils # (Auto) 0.1 0-0.8 10 ^3/uL Basophils # (Auto) 0 0-0.2 10 ^3/uL Nucleated Red Blood Cells 0.3 % Sodium Level 141 136-145 mmol/L Potassium Level 3.9 3.5-5.1 mmol/L Chloride Level 101 98-107 mmol/L Carbon Dioxide Level 34 H 20-31 mmol/L Anion Gap 6 5-15 Blood Urea Nitrogen 20 9-23 mg/dL Creatinine 0.74 0.550-1.02 mg/dL Glomerular Filtration Rate Calc 78 >90 mL/min BUN/Creatinine Ratio 27.0 H 10.0-20.0 Serum Glucose 136 H 74-106 mg/dL Calcium Level 9.8 8.7-10.4 mg/dL Magnesium Level 1.7 1.6-2.6 mg/dL Total Bilirubin 0.4 0.2-1.0 mg/dL Aspartate Amino Transferase (AST) 17 13-40 U/L Alanine Aminotransferase (ALT) 11 7-40 U/L Alkaline Phosphatase 148 H 46-116 U/L Total Protein 5.6 L 5.7-8.2 g/dL Albumin 3.6 3.2-4.8 g/dL Triglycerides Level 112 < 150 mg/dL Cholesterol Level 175 < 200 mg/dL LDL Cholesterol 101 H < 100 mg/dL HDL Cholesterol 50 40-59 mg/dL POC Glucose 175 H 70-106 mg/dl Iron Level 68 50-170 ug/dL Total Iron Binding Capacity 265 250-425 ug/dL Percent Iron Saturation 25.7 15-50 % Ferritin 140.0 10-291 ng/mL Urine Color Light-yellow Yellow Urine Clarity Clear Clear Urine pH 5.5 5.0-9.0 Urine Specific [place] 1.013 1.001-1.035 Urine Protein Negative Negative Urine Ketones Negative Negative Urine Blood Negative Negative /uL Urine Nitrite Negative Negative Urine Bilirubin Negative Negative Urine Urobilinogen Normal Negative mg/dL Urine Leukocyte Esterase Negative Negative /uL Urine RBC 1 0 - 4 /hpf Urine WBC 1 0 - 5 /hpf Urine Squamous Epithelial Cells Few <5 /hpf Urine Bacteria None seen None Seen /hpf Urine Hyaline Casts Few 0 - 2 /lpf Urine Glucose Normal Normal mg/dL Test 04/26/24 21:50 04/26/24 20:30 04/26/24 19:25 Range/Units Troponin I High Sensitivity 8 </=34 ng/L Vitamin B12 Level 879 211-911 pg/mL Vitamin D 25-Hydroxy 30.6 30.0-100 ng/mL Thyroid Stimulating Hormone (TSH) 3.79 0.55-4.78 uIU/mL Hemoglobin A1c 7.1 H <5.7 % A1C B-Type Natriuretic Peptide 127.86 0-100 pg/mL Prothrombin Time 10.9 9.3-11.8 sec Prothrombin Time INR 1.03 0.9-1.15 Activated Partial Thromboplast Time 22.2 L 24.5-34.5 SEC Microbiology Date/Time Source Procedure Growth Status 04/27/24 02:52 Toe Gram Stain - Final Resulted 04/27/24 02:52 Toe Wound Culture Pending Resulted Problems(with codes): (1) Hypertension (2) Weakness (3) Altered mental status (4) Right lower lobe pneumonia (5) Sinusitis (6) DVT of right axillary vein, acute (7) DVT of right axillary vein, acute (8) Pancytopenia (9) Dementia (10) DNR (do not resuscitate) (11) Acute lower extremity ischemia (12) Atelectasis of both lungs (13) On mechanically assisted ventilation (14) Seizure disorder (15) Acute hypoxemic respiratory failure (16) Metabolic encephalopathy (17) Acute respiratory failure with hypoxia (18) Non-ST elevation myocardial infarction (NSTEMI) (19) UTI (urinary tract infection) (20) Thrombocytopenia (21) Anemia (22) Diabetes mellitus, type 2 (23) Metabolic acidosis (24) Hyperglycemia (25) Hypertensive urgency (26) Vitiligo (27) Chronic pain of both knees (28) Depression (29) Hypokalemia Plan/Recommendation ASSESSMENT: Patient is a 88-year-old female seen on the floor for concern of ischemic toes PLAN: - The patients chart was reviewed, clinical findings were discussed with the patient, the etiologies of the conditions were discussed in detail, and a treatment plan was agreed to at this time, with both oral and written instructions provided. - reviewed imaging as well as vascular studies - does not appear to have ischemic toes at this point - patient would benefit from outpatient foot care - has a small callus on the distal tuft of the right foot - no surgical intervention required at this point All questions were answered and concerns addressed to the patient's satisfaction. The patient was given the phone number to the clinic and was told how to make contact with the clinic should any concerns or questions arise. Patient understands that if any questions or concerns arise prior to the next appointment, we should be contacted immediately. FOLLOW-UP: Patient can follow up as an outpatient if no establish foot care Plan discussed with: Patient Date of Service: Apr 28, 2024 Billing Provider: KRYSTINA FONTAINE DPM Common Visit Codes: [id number] INP/OBS CARE (HIGH) KRYSTINA FONTAINE DPM Apr 28, 2024 09:08
[2024-04-28] MEDS: DONEPEZIL HYDROCHLORIDE 5 MG TAB PO SCH (09:24)
--- NOTE | 2024-04-28 09:25 | DVHDSRES ---
Discharge Summary Date of Admission Resident Creating Document: AMILCAR LANDRY RESIDENT Apr 26, 2024 at 23:39 Date of Discharge: Apr 28, 2024 Admitting Diagnosis Bilateral foot pain likely due to ischemia Labs/Diagnostic Data: Laboratory Results Test 04/28/24 05:43 04/27/24 16:48 04/27/24 15:11 04/27/24 02:52 White Blood Count 3.6 10^3/uL (4.4-10.8) Red Blood Count 3.96 10^6/uL (4.0-5.20) Hemoglobin 10.0 g/dL (12.2-16.2) Hematocrit 30.9 % (36.0-46.0) Mean Corpuscular Volume 78.1 fL (80.0-100.0) Mean Corpuscular Hemoglobin 25.2 pg (28.0-32.0) Mean Corpuscular Hemoglobin Concent 32.3 g/dL (32.0-36.0) Red Cell Distribution Width 15.8 % (11.8-14.3) Platelet Count 118 10^3/uL (140-450) Mean Platelet Volume 9.6 fL (6.9-10.8) Neutrophils (%) (Auto) 52.2 % (37.0-80.0) Lymphocytes (%) (Auto) 35.8 % (10.0-50.0) Monocytes (%) (Auto) 10.0 % (0.0-12.0) Eosinophils (%) (Auto) 1.8 % (0.0-7.0) Basophils (%) (Auto) 0.2 % (0.0-2.0) Neutrophils # (Auto) 1.9 10 ^3/uL (1.6-8.6) Lymphocytes # (Auto) 1.3 10 ^3/uL (0.4-5.4) Monocytes # (Auto) 0.4 10 ^3/uL (0-1.3) Eosinophils # (Auto) 0.1 10 ^3/uL (0-0.8) Basophils # (Auto) 0 10 ^3/uL (0-0.2) Nucleated Red Blood Cells 0.3 % Sodium Level 141 mmol/L (136-145) Potassium Level 3.9 mmol/L (3.5-5.1) Chloride Level 101 mmol/L (98-107) Carbon Dioxide Level 34 mmol/L (20-31) Anion Gap 6 (5-15) Blood Urea Nitrogen 20 mg/dL (9-23) Creatinine 0.74 mg/dL (0.550-1.02) Glomerular Filtration Rate Calc 78 mL/min (>90) BUN/Creatinine Ratio 27.0 (10.0-20.0) Serum Glucose 136 mg/dL (74-106) Calcium Level 9.8 mg/dL (8.7-10.4) Magnesium Level 1.7 mg/dL (1.6-2.6) Total Bilirubin 0.4 mg/dL (0.2-1.0) Aspartate Amino Transferase (AST) 17 U/L (13-40) Alanine Aminotransferase (ALT) 11 U/L (7-40) Alkaline Phosphatase 148 U/L (46-116) Total Protein 5.6 g/dL (5.7-8.2) Albumin 3.6 g/dL (3.2-4.8) Triglycerides Level 112 mg/dL (< 150) Cholesterol Level 175 mg/dL (< 200) LDL Cholesterol 101 mg/dL (< 100) HDL Cholesterol 50 mg/dL (40-59) POC Glucose 175 mg/dl (70-106) Iron Level 68 ug/dL (50-170) Total Iron Binding Capacity 265 ug/dL (250-425) Percent Iron Saturation 25.7 % (15-50) Ferritin 140.0 ng/mL (10-291) Urine Color Light-yellow (Yellow) Urine Clarity Clear (Clear) Urine pH 5.5 (5.0-9.0) Urine Specific [place] 1.013 (1.001-1.035) Urine Protein Negative (Negative) Urine Ketones Negative (Negative) Urine Blood Negative /uL (Negative) Urine Nitrite Negative (Negative) Urine Bilirubin Negative (Negative) Urine Urobilinogen Normal mg/dL (Negative) Urine Leukocyte Esterase Negative /uL (Negative) Urine RBC 1 /hpf (0 - 4) Urine WBC 1 /hpf (0 - 5) Urine Squamous Epithelial Cells Few /hpf (<5) Urine Bacteria None seen /hpf (None Seen) Urine Hyaline Casts Few /lpf (0 - 2) Urine Glucose Normal mg/dL (Normal) Test 04/26/24 21:50 04/26/24 20:30 04/26/24 19:25 Troponin I High Sensitivity 8 ng/L (</=34) Vitamin B12 Level 879 pg/mL (211-911) Vitamin D 25-Hydroxy 30.6 ng/mL (30.0-100) Thyroid Stimulating Hormone (TSH) 3.79 uIU/mL (0.55-4.78) Hemoglobin A1c 7.1 % A1C (<5.7) B-Type Natriuretic Peptide 127.86 pg/mL (0-100) Prothrombin Time 10.9 sec (9.3-11.8) Prothrombin Time INR 1.03 (0.9-1.15) Activated Partial Thromboplast Time 22.2 SEC (24.5-34.5) Other Laboratory Tests 04/28/24 05:43 Brief Hx & Hospital Course: Patient is 88 years old female with past medical history of hypertension, diabetes mellitus type 2, hyperlipidemia,, history of Right upper extremity axillary vein DVT, COPD, CVA, CHF, seizure disorder, arthritis, gout, anxiety, depression, dementia, emergency was brought in to the ER due to bilateral foot pain. [facility]. Patient with dementia and very poor historian, information was provided from reviewing the chart from the ER and from ER physician. Patient complained of bilateral foot pain, with a suspicion of ischemic pain or due to pressure vascular disease, patient could not verify how long she had this pain and nursing facility called 911 and sent her to the [facility] for further evaluation and care. Patient is AAOX1. Initial lab workup revealed leukopenia WBC 3.2, anemia with a hemoglobin 10.0, thrombocytopenia with platelet 112, blood sugar 190, BNP 127, troponin I 8, urinalysis negative for UTI other blood workup was with a normal limit. CXR revealed low lung volume without any acute cardiopulmonary disease. Left foot CT scan revealed- No evidence of an acute fracture Increased central sclerosis of the midfoot and hindfoot, nonspecific. May reflect multiple bone infarcts. Recommend MRI for further evaluation. Moderate dorsal soft tissue edema. X-ray left foot revealed-No acute fracture or dislocation. Limited evaluation due to diffuse bone demineralization. Hallux valgus deformity. Inferior calcaneal enthesophyte. Diffuse soft tissue edema. Arterial Doppler of the bilateral lower extremity revealed no significant arterial stenosis. Doppler study of the lower extremity was negative for DVT. Echo 2D revealed- Normal left ventricular size and dimension. Normal left ventricular systolic function with estimated ejection fraction of 60%. There is a grade 1 diastolic dysfunction. Normal right ventricular size and dimension. Normal right ventricular systolic function. Patient was treated conservatively during hospitalization. Patient was seen by Podiatry and cleared for discharge, recommended for foot care, no acute intervention recommended. Patient's respiratory distress improved. Patient's vitals are stable. Patient is being discharged to [facility] where she came from. Patient is supposed to follow up with the MD at the facility. Patient was stable on discharge Past medical history: Seizure disorder, Dementia, Alzheimer disease, hypertension, seizure disorder, type 2 diabetes mellitus, hyperlipidemia, COPD, CVA, CHF, arthritis, gout, anxiety, depression Past surgical history: Right mastectomy Social history: Lives in [facility] Medications: Allopurinol 100 mg q.d., donepezil 5 mg q.d., Eliquis 2.5 mg b.i.d. for DVT, Lasix 40 mg q.d., insulin Humulin ACHS, Keppra 500 mg b.i.d., metoprolol tartrate 25 mg b.i.d. Allergy- NKDA General examination- patient with poor memory HEENT- PEERLA, no acute nasal discharge Cardiovascular- S1-S2 audible, rate and rhythm regular, no murmur Respiratory- CTAB, no wheeze or rhonchi Gastrointestinal-nontender, bowel sound+. Nondistended Musculoskeletal-no acute joint swelling or tenderness or redness# Lower extremity- bilateral leg edema++, palpable bilateral arterial dorsalis pedis+ Neurological- cranial nerves intact, no acute dysarthria or dysphagia Psychiatry- denies depression or SI or HI Skin- no acute rash or purpura Operations or Procedures DIAGNOSTIC IMAGING Diagnostic Imaging Report : [id number] Signed PATIENT: BREANNA BATISTAACCT: [id number] UNIT: [id number] : 1935 LOC: ER ROOM / BED: / AGE / SEX: 88 / F ADM STATUS: REG ER SERVICE 02 ORDERING PHYSICIAN: GUSTAVO MUIR MD PROCEDURE(s): CXRP - CHEST PORTABLE REASON: foot pain ORDER NUMBER(s): [id number], ACCESSION NUMBER(s): [id number] CHEST RADIOGRAPH Indication: foot pain Technique: Single frontal view of the chest was obtained Comparison: XY CHEST PORTABLE on DOS: 08/31/23, XY CHEST PORTABLE on DOS: 08/12/23, XY CHEST PORTABLE on DOS: 10/29/22 Findings/ IMPRESSION: Low lung volumes otherwise no active cardiopulmonary disease. Limited evaluation due to overlying body habitus ATED BY: SARA FRANCISCO DO DICTATED DATE/TIME: 04/26/241958 SIGNED BY: SARA FRANCISCO DO SIGNED DATE/TIME: 04/26/241958 CC: [place] [address] Ph: [phone] DIAGNOSTIC IMAGING Diagnostic Imaging Report : [id number] Signed PATIENT: MAXIME BATISTAT: [id number] UNIT: [id number] : 1935 LOC: ER ROOM / BED: / AGE / SEX: 88 / F ADM STATUS: REG ER SERVICE 02 ORDERING PHYSICIAN: GUSTAVO MUIR MD PROCEDURE(s): LFTCT - CT L FOOT WO CONTRAST REASON: ischemic toes ORDER NUMBER(s): [id number], ACCESSION NUMBER(s): [id number] EXAM: CT CT L FOOT WO CONTRAST INDICATION: ischemic toes EXAM DATE: 04/26/2024 07:37 PM COMPARISON: None TECHNIQUE: Multiple axial CT images of the left foot were obtained using bone algorithm. Axial and coronal reformatting was done. Bone and soft tissue windows were reviewed. Radiation Dose Information: CT Dose: CTDI volume is 7.75 mGy. Dose-length product is 236.44 mGy*cm Findings: Limited evaluation given noncontrast technique. There is no evidence of an acute fracture, dislocation, or lytic lesions. Increased central sclerosis of the midfoot and hindfoot. No radiopaque foreign bodies. No joint effusion. Moderate dorsal soft tissue edema. Impression: 1. No evidence of an acute fracture. 2. Increased central sclerosis of the midfoot and hindfoot, nonspecific. May reflect multiple bone infarcts. Recommend MRI for further evaluation. 3. Moderate dorsal soft tissue edema. ATED BY: MICHAELA ZHANG DO DICTATED DATE/TIME: 04/26/242046 SIGNED BY: MICHAELA ZHANG DO SIGNED DATE/TIME: 04/26/242046 CC: PATIENT: FISH BATISTA: [id number] UNIT: [id number] : 1935 LOC: ER ROOM / BED: / AGE / SEX: 88 / F ADM STATUS: REG ER SERVICE 02 ORDERING PHYSICIAN: GUSTAVO MUIR MD PROCEDURE(s): LFOT2 - L FOOT 2 VIEW XRAY REASON: ichemic toes ORDER NUMBER(s): [id number], ACCESSION NUMBER(s): [id number] L FOOT 2 VIEW XRAY, INDICATION: ichemic toes TECHNICAL DATA: Frontal, oblique and lateral views were obtained of the left foot. COMPARISON: None Findings/ IMPRESSION: No acute fracture or dislocation. Limited evaluation due to diffuse bone demineralization. Hallux valgus deformity. Inferior calcaneal enthesophyte. Diffuse soft tissue edema. ATED BY: SARA FRANCISCO DO DICTATED DATE/TIME: 04/26/242006 SIGNED BY: SARA FRANCISCO DO SIGNED DATE/TIME: 04/26/242006 CC: Diagnostic Imaging Report : [id number] Signed PATIENT: MAXIME BATISTAT: [id number] UNIT: [id number] : 1935 LOC: ER ROOM / BED: / AGE / SEX: 88 / F ADM STATUS: REG ER SERVICE 29 ORDERING PHYSICIAN: GUSTAVO MUIR MD PROCEDURE(s): LLEAD - Lt Low Ext Art Duplex REASON: foot ischemia ORDER NUMBER(s): [id number], ACCESSION NUMBER(s): [id number] Left Lower Extremity Arterial Duplex Clinical History: foot ischemia Comparison: None Technique: Duplex Doppler evaluation including color Doppler and spectral/pulsed waveform analysis of the lower extremity arteries was performed. Findings: LEFT: Peak systolic velocities are as follows: SQUARE CUTTER 107 cm/s Deep femoral 81 cm/s SFA proximal 108 cm/s SFA mid-portion 95 cm/s SFA distal 52 cm/s Popliteal 56 cm/s Posterior tibial 32 cm/s Dorsalis pedis 71 cm/s The waveforms are biphasic and triphasic. IMPRESSION: No hemodynamically significant stenosis based on peak systolic velocity criteria. REFERENCE VALUES, [facility]) vascular Imaging Lab Criteria: Peak systolic velocity ranges (in cm/sec) are as follows: <150 cm/s - <20 % stenosis 150-200 cm/s - 20-49% stenosis 200-300 cm/s - 50-75% stenosis >300 cm/s -> 75% stenosis ATED BY: SARA FRANCISCO DO DICTATED DATE/TIME: 04/26/242046 SIGNED BY: SARA FRANCISCO DO SIGNED DATE/TIME: 04/26/242046 CC: DIAGNOSTIC IMAGING Diagnostic Imaging Report : [id number] Signed PATIENT: MAXIME BATISTAT: [id number] UNIT: [id number] : 1935 LOC: [facility] ROOM / BED: [address] [place] [address] AGE / SEX: 88 / F ADM STATUS: ADM IN SERVICE 0048 ORDERING PHYSICIAN: JENNIFER MORRIS RESIDENT PROCEDURE(s): BLDVT - BiLat Lower DVT REASON: h/o DVT, rule out DVT ORDER NUMBER(s): [id number], ACCESSION NUMBER(s): [id number] Bilateral lower extremity venous duplex Clinical History: edema Comparison: US RT UPPER DVT on DOS: 08/28/23 Technique: Duplex Doppler evaluation of the deep venous systems of both lower extremities from the common femoral veins to the popliteal veins including color Doppler and spectral/pulsed waveform analysis was performed. Findings: RIGHT SIDE: The common femoral vein demonstrates appropriate compressibility and waveform variability. There is compressibility/patency of the great saphenous vein at the proximal thigh. The femoral vein demonstrates appropriate compressibility and waveform variability. The deep femoral vein demonstrates appropriate compressibility and waveform variability. The popliteal vein demonstrates appropriate compressibility and waveform variability. There is normal compressibility at the tibioperoneal trunk. LEFT SIDE: The common femoral vein demonstrates appropriate compressibility and waveform variability. There is compressibility/patency of the great saphenous vein at the proximal thigh. The femoral vein demonstrates appropriate compressibility and waveform variability. The deep femoral vein demonstrates appropriate compressibility and waveform variability. The popliteal vein demonstrates appropriate compressibility and waveform variability. There is normal compressibility at the tibioperoneal trunk. Impression: No right or left femoropopliteal venous thrombosis. ATED BY: DERRELL GLASS MD DICTATED DATE/TIME: 04/27/24350 SIGNED BY: DERRELL GLASS MD SIGNED DATE/TIME: 04/27/24350 CC: Signed PATIENT: BREANNA BATISTAACCT: [id number] UNIT: [id number] : 1935 LOC: [facility] ROOM / BED: [address] [place] [address] AGE / SEX: 88 / F ADM STATUS: ADM IN SERVICE 0800 ORDERING PHYSICIAN: JENNIFER MORRIS RESIDENT PROCEDURE(s): RLEAD - Rt Low Ext Art Duplex REASON: right 2nd toe ulcer ORDER NUMBER(s): [id number], ACCESSION NUMBER(s): [id number] BILATERAL Lower Extremity Arterial Duplex Date: 04/27/2024 08:26 AM Clinical History: right 2nd toe ulcer Comparison: US LT LOW EXT ART DUPLEX on DOS: 04/26/24 Technique: Duplex Doppler evaluation including color Doppler and spectral/pulsed waveform analysis of the lower extremity arteries was performed. Finding: RIGHT: Peak systolic velocities are as follows: SQUARE CUTTER 112 cm/s Deep femoral 70 cm/s SFA proximal 97 cm/s SFA mid-portion 85 cm/s SFA distal 76 cm/s Popliteal not seen Posterior tibial 21 cm/s Anterior tibial 108 cm/s Dorsalis pedis 141 cm/s The waveforms are triphasic with diastolic flow seen in the posterior tibial artery. REFERENCE VALUES, [facility]) vascular Imaging Lab Criteria: Peak systolic velocity ranges (in cm/sec) are as follows: <150 cm/s - <20 % stenosis 150-200 cm/s - 20-49% stenosis 200-300 cm/s - 50-75% stenosis >300 cm/s -> 75% stenosis IMPRESSION: There is no evidence for peripheral vascular insufficiency in the right lower extremity. No significant focal stenosis is identified. Monophasic waveform posterior tibial artery. ATED BY: DERRELL GLASS MD DICTATED DATE/TIME: 04/27/24919 SIGNED BY: DERRELL GLASS MD SIGNED DATE/TIME: 04/27/24919 CC: Condition at Discharge: Stable Final Diagnosis/Problems List # acute hypoxic respiratory failure likely due to acute on chronic exacerbation of COPD/acute on chronic heart failure # acute on chronic COPD # suspected acute on chronic heart failure/HFpEF # Bilateral foot pain likely due to microvascular ischemia # bilateral leg edema # peripheral neuropathy likely diabetic neuropathy # history of Right upper extremity axillary vein DVT # history of seizure disorder # hypertension # diabetes mellitus type 2 # hyperlipidemia # CVA, -continue current medication # anemia likely anemia of chronic disease # pancytopenia # arthritis #Gout, #anxiety, #depression, #dementia, Alzheimer's dementia Discharge Disposition: [facility] Discharge Statement: "Patient was advised to return to the ER or call 911 if any headaches, dizziness, shortness of breath, chest pain, abdominal pain, bleeding, fevers, or worsening of medical condition. Patient was counseled about treatment plan, medications, possible side effects, patientverbalized understanding. All questions were answered to the best of my ability. This discharge took greater then 30 minutes in planning, reviewing documentation, counseling the patient, and discussing with other team members." ASSESSMENT ASSESSMENT Assessment Date of Service: Apr 28, 2024 Billing Provider: RENE CARRERA MD Common Visit Codes: 01141-MMW/OBS DISCH DAY >30min AMILCAR LANDRY Apr 28, 2024 09:25 RENE CARRERA MD Apr 28, 2024 20:31
[2024-04-29] VITALS (7 sets, daily range): BP systolic 133–147; BP diastolic 67–70; PULSE 68–82; RESP 17–19; TEMP 98–98.2; O2SAT 90–100
[2024-04-29 11:17] LABS: Basophils # (auto) 0 10 ^3/uL (0-0.2); Basophils % (auto) 0.3 % (0.0-2.0); Eosinophils # (auto) 0.1 10 ^3/uL (0-0.8); Lymphocytes # (auto) 1.1 10 ^3/uL (0.4-5.4); Monocytes # (auto) 0.4 10 ^3/uL (0-1.3); Neutrophils # (auto) 2.1 10 ^3/uL (1.6-8.6); Red Cell Distribution Width 16.2 % (11.8-14.3); White Blood Cell 3.6 10^3/uL (4.4-10.8)
[2024-04-29 11:19] LABS: Hematocrit 31.7 % (36.0-46.0); Hemoglobin 10.2 g/dL (12.2-16.2); Lymphocytes % (auto) 30.6 % (10.0-50.0); Mean Corpuscular Hemoglobin 24.9 pg (28.0-32.0); Mean Corpuscular Hgb Conc. 32.2 g/dL (32.0-36.0); Mean Corpuscular Volume 77.3 fL (80.0-100.0); Monocytes % (auto) 10.6 % (0.0-12.0); Neutrophils % (auto) 56.5 % (37.0-80.0); Nucleated Red Blood Cells % 0.1 %; Platelet Count (auto) 135 10^3/uL (140-450); Red Blood Cells 4.11 10^6/uL (4.0-5.20)
--- NOTE | 2024-04-29 13:40 | ECG ---
[facility] Test Date: 2024-04-27 Test Time: 10:52:34 Pat Name: BREANNA BATISTA Department: er Room: 0207T A Gender: F [employer]: jewels : 1935 Requested By: GUSTAVO MUIR Order Number: [id number] Reading MD: Gordo Leonard Measurements Intervals [place] Rate: 75 P: 43 FL: 184 QRS: 26 QRSD: 97 T: 51 QT: 421 QTc: 471 Interpretive Statements Sinus rhythm Baseline wander in lead(s) I,II,aVR,aVF Electronically Signed On 04-29-2024 16:43:39 PST by Gordo Leonrad Please click the below link to view image of tracing.
[2024-04-29] MEDS: ALBUTEROL SULF 2.5 MG/0.5ML(0.5%) NEB SOLN NEB PRN (14:08)
[2024-04-29] MEDS: IPRATROPIUM BROM 0.5 MG/2.5ML INH SOL NEB PRN (14:08)
--- NOTE | 2024-04-29 15:15 | DVHPNRES ---
Progress Note Date Seen: Apr 29, 2024 Resident Creating Document: AMILCAR LANDRY RESIDENT Medical Necessity Reason Pt with a Central, PICC or Fol: No Subjective Review of Systems Patient is 88 years old female with past medical history of hypertension, diabetes mellitus type 2, hyperlipidemia,, history of Right upper extremity axillary vein DVT, COPD, CVA, CHF, seizure disorder, arthritis, gout, anxiety, depression, dementia, emergency was brought in to the ER due to bilateral foot pain. Patient was brought in from care home due to bilateral foot pain. Patient with dementia and very poor historian, information was provided from reviewing the chart from the ER and from ER physician. Patient complained of bilateral foot pain, with a suspicion of ischemic pain or due to pressure vascular disease, patient could not verify how long she had this pain and nursing facility called 911 and sent her to the [facility] for further evaluation and care. Patient is AAOX1. Initial lab workup revealed leukopenia WBC 3.2, anemia with a hemoglobin 10.0, thrombocytopenia with platelet 112, blood sugar 190, BNP 127, troponin I 8, urinalysis negative for UTI other blood workup was with a normal limit. CXR revealed low lung volume without any acute cardiopulmonary disease. Left foot CT scan revealed- No evidence of an acute fracture Increased central sclerosis of the midfoot and hindfoot, nonspecific. May reflect multiple bone infarcts. Recommend MRI for further evaluation. Moderate dorsal soft tissue edema. X-ray left foot revealed-No acute fracture or dislocation. Limited evaluation due to diffuse bone demineralization. Hallux valgus deformity. Inferior calcaneal enthesophyte. Diffuse soft tissue edema. Arterial Doppler of the bilateral lower extremity revealed no significant arterial stenosis. Doppler study of the lower extremity was negative for DVT. Echo 2D revealed- Normal left ventricular size and dimension. Normal left ventricular systolic function with estimated ejection fraction of 60%. There is a grade 1 diastolic dysfunction. Normal right ventricular size and dimension. Normal right ventricular systolic function. Patient was seen today for clinical evaluation. La Patient was seen by Podiatry and cleared for discharge, recommended for foot care, no acute intervention recommended. Patient's respiratory distress improved. Patient's vitals are stable. Patient was discharged on 04/28/24. discharged to [facility] where she came from. Patient is still waiting for transfer to be arranged. Once transport is available patient is going to go back to the nursing facility she came from. ## patient was discharged back to [facility]. Awaiting for transfer to be arranged. Provider spoke to licensed social worker Mckenzie. As per licensed social worker transport being arranged to [facility]. Past medical history: Seizure disorder, Dementia, Alzheimer disease, hypertension, seizure disorder, type 2 diabetes mellitus, hyperlipidemia, COPD, CVA, CHF, arthritis, gout, anxiety, depression Past surgical history: Right mastectomy Social history: Lives in [facility] Medications: Allopurinol 100 mg q.d., donepezil 5 mg q.d., Eliquis 2.5 mg b.i.d. for DVT, Lasix 40 mg q.d., insulin Humulin ACHS, Keppra 500 mg b.i.d., metoprolol tartrate 25 mg b.i.d. Allergy- NKDA Objective vital signs Vital Sign Date Time Temp Pulse Resp B/P (MAP) Pulse Ox O2 Delivery O2 Flow Rate FiO2 04/29/24 14:14 75 17 100 04/29/24 14:08 Nasal Cannula* 1 04/29/24 10:02 143/67 04/29/24 08:37 98.0 98.0 Total Intake and Output 04/28/24 04/28/24 04/29/24 15:00 23:00 07:00 Intake Total 480 ml 1080 ml 850 ml Output Total 500 ml 575 ml Balance 480 ml 580 ml 275 ml medications Current Medications Medications Dose Ordered Sig/Itzel Route Start Time Stop Time Status Last Admin Dose Admin Nitroglycerin 0.4 mg Q5MINP PRN SL 04/26/24 23:45 Morphine Sulfate 2 mg Q30M PRN IV 04/26/24 23:45 Furosemide 20 mg DAILY IV 04/27/24 10:00 04/29/24 10:00 20 MG Apixaban 2.5 mg BID PO 04/27/24 10:00 UNV Metoprolol Tartrate 25 mg BID PO 04/27/24 10:00 04/29/24 10:01 25 MG Dextrose 50 ml UD PRN IV 04/27/24 00:00 Acetaminophen/ Hydrocodone Bitart 1 tab Q6HPRN PRN PO 04/27/24 00:00 04/27/24 15:04 1 TAB Hydralazine HCl 10 mg Q6HP PRN IV 04/27/24 00:00 Levetiracetam 500 mg BID PO 04/27/24 10:00 UNV Levetiracetam 500 mg Q12H PO 04/27/24 14:00 04/29/24 14:20 500 MG Apixaban 2.5 mg BID PO 04/27/24 10:00 04/29/24 10:01 2.5 MG Insulin Human Regular AC SC 04/27/24 07:00 04/29/24 07:10 2 UNITS Diagnostic Test (Pha) 1 strip AC 04/27/24 07:00 04/29/24 11:30 1 STRIP Allopurinol 100 mg DAILY PO 04/27/24 10:00 04/29/24 10:01 100 MG Albuterol 2.5 mg Q6HPRN PRN NEB 04/27/24 04:30 04/29/24 14:08 2.5 MG Ipratropium [place] 0.5 mg Q6HPRN PRN NEB 04/27/24 04:30 04/29/24 14:08 0.5 MG Vancomycin HCl 0 ml @ 0 mls/hr UD IV 04/27/24 06:15 Morphine Sulfate 2 mg Q3HPRN PRN IV 04/27/24 07:30 Lorazepam 1 mg Q3HPRN PRN IV 04/27/24 07:30 Famotidine 20 mg DAILY IV 04/27/24 14:20 04/29/24 10:00 20 MG Amlodipine Besylate 5 mg DAILY PO 04/27/24 14:19 04/29/24 10:02 5 MG Atorvastatin Calcium 20 mg HS PO 04/27/24 22:00 04/28/24 21:02 20 MG Donepezil HCl 5 mg DAILY PO 04/28/24 10:00 04/29/24 10:01 5 MG Risperidone 1 mg HS PO 04/27/24 22:00 04/28/24 21:03 1 MG Vancomycin HCl 250 ml @ 200 mls/hr Q18H IV 04/28/24 00:00 04/28/24 00:00 200 MLS/HR Examination General examination- patient with poor memory HEENT- PEERLA, no acute nasal discharge Cardiovascular- S1-S2 audible, rate and rhythm regular, no murmur Respiratory- CTAB, no wheeze or rhonchi Gastrointestinal-nontender, bowel sound+. Nondistended Musculoskeletal-no acute joint swelling or tenderness or redness# Lower extremity- bilateral leg edema++, palpable bilateral arterial dorsalis pedis+ Neurological- cranial nerves intact, no acute dysarthria or dysphagia Psychiatry- denies depression or SI or HI Skin- no acute rash or purpura laboratory and microbiology Laboratory Tests 04/29/24 10:46 04/28/24 05:43 Test 04/28/24 05:43 Range/Units Serum Glucose 136 H 74-106 mg/dL Microbiology Date/Time Source Procedure Growth Status 04/27/24 17:00 Nose MRSA Screen - Final Methicillin Resistant S.aureus Complete Problem List/Assessment/Plan Problem List/Assessment/Plan # acute hypoxic respiratory failure likely due to acute on chronic exacerbation of COPD/acute on chronic heart failure -patient on NC O2 2 liter/minute, unable to complete a full sentence -negative for troponin I, BNP 127, -continue evaluation as prescribed -continue Lasix as prescribed -Echo 2D-Normal left ventricular size and dimension. Normal left ventricular systolic function with estimated ejection fraction of 60%. There is a grade 1 diastolic dysfunction. # acute on chronic COPD -patient on NC O2 2 liter/minute, unable to complete a full sentence -echo 2D-Normal left ventricular size and dimension. Normal left ventricular systolic function with estimated ejection fraction of 60%. There is a grade 1 diastolic dysfunction. # suspected acute on chronic heart failure/HFpEF -echo 2D on 08/17/2023- LVEF 55%, grade 1 diastolic dysfunction, -continue Lasix 20 mg IV daily # Bilateral foot pain likely due to microvascular ischemia -bilateral arterial Doppler negative for significant arterial stenosis -Podiatry and cleared for discharge, recommended for foot care, no acute intervention recommended. # bilateral leg edema -Doppler study negative for DVT -continue Lasix 20 mg daily # peripheral neuropathy likely diabetic neuropathy -patient complained of pain all over the body -continue pain medication as prescribed # history of Right upper extremity axillary vein DVT -continue Eliquis 2.5 mg p.o. b.i.d. # history of seizure disorder -continue home medications Keppra 500 mg p.o. b.i.d. # hypertension, -continue hydralazine 10 mg q.6h p.r.n. # diabetes mellitus type 2 -HGB A1c 7.1 -continue insulin sliding scale as prescribed # hyperlipidemia -continue atorvastatin 20 mg q.h.s. # CVA, -continue current medication # anemia likely anemia of chronic disease -pending iron panel # pancytopenia -monitor CBC # arthritis -continue pain medication as prescribed #Gout, -continue allopurinol 100 mg p.o. daily #anxiety, -continue current medication #depression, -continue current medications #dementia, Alzheimer's dementia -resume home medications ## patient was discharged back to [facility]. Awaiting for transfer to be arranged. Provider spoke to licensed social worker Mckenzie. As per licensed social worker transport being arranged to [facility]. Goals of care/advance care planning; FULL CODE; discussed with the patient >15 minutes PUD prophylaxis: Famotidine DVT prophylaxis: Eliquis Plan discussed with Dr. Cuellar, nursing staff, patient Total time spent on patient evaluation, chart review, assessment and plan, discussion discussion >30 minutes Plan discussed with: Patient Plan discussed with: Patient, Other (RN) My Orders My Orders Orders - AMILCAR LANDRY Procedure Category Date Status Time Apply Barrier Cream RIA 04/28/24 In Process 12:00 Apply: RIA 04/28/24 In Process 12:00 * Dietary Consult CONS 04/28/24 Transmitted 17:54 Date of Service: Apr 29, 2024 Billing Provider: RENE CUELLAR MD Common Visit Codes: [id number] INP/OBS CARE(HIGH) AMILCAR LANDRY Apr 29, 2024 15:15 RENE CUELLAR MD Apr 29, 2024 22:31
[2024-04-30] MEDS ORDERED: VANCOMYCIN 1.25GM/250ML 250 ML IV SCH (06:00)
== END 2024-04-29 19:20 | DRG 291 ==
LOC: ER 18:27 → EDBD 18:27 → TELE 23:39 → TELE-WESTW 04-27 12:24 → TELE-CENTR 04-29 01:23
PROVIDERS: ADMIT Internal Medicine Geriatric Medicine; ATTEND Internal Medicine Geriatric Medicine
DX: I11.0 Hypertensive heart disease with heart failure (principal); I50.33 Acute on chronic diastolic (congestive) heart failure; J96.21 Acute and chronic respiratory failure with hypoxia; J44.1 Chronic obstructive pulmonary disease with (acute) exacerbation; F02.C18 Dementia in other diseases classified elsewhere, severe, with other behavioral disturbance; D61.818 Other pancytopenia; Z66 Do not resuscitate; G30.9 Alzheimer's disease, unspecified; G40.909 Epilepsy, unspecified, not intractable, without status epilepticus; E78.5 Hyperlipidemia, unspecified; S91.105A Unspecified open wound of left lesser toe(s) without damage to nail, initial encounter; S91.104A Unspecified open wound of right lesser toe(s) without damage to nail, initial encounter; I27.20 Pulmonary hypertension, unspecified; E11.65 Type 2 diabetes mellitus with hyperglycemia; D50.9 Iron deficiency anemia, unspecified; M10.9 Gout, unspecified; E11.42 Type 2 diabetes mellitus with diabetic polyneuropathy; F32.A Depression, unspecified; D63.8 Anemia in other chronic diseases classified elsewhere; I99.8 Other disorder of circulatory system; M20.12 Hallux valgus (acquired), left foot; F41.9 Anxiety disorder, unspecified; Z90.11 Acquired absence of right breast and nipple; Z79.4 Long term (current) use of insulin; Z86.73 Personal history of transient ischemic attack (TIA), and cerebral infarction without residual deficits; Z80.49 Family history of malignant neoplasm of other genital organs; Z80.1 Family history of malignant neoplasm of trachea, bronchus and lung; Z74.01 Bed confinement status; X58.XXXA Exposure to other specified factors, initial encounter; Y93.89 Activity, other specified; Y92.89 Other specified places as the place of occurrence of the external cause; Y99.8 Other external cause status
CPT/HCPCS: 36415; 71045; 73620; 73700; 80053; 80061; 80202; 81001; 82306; 82565; 82607; 82728; 82962; 83036; 83540; 83550; 83735; 83880; 84443; 84484; 85025; 85610; 85730; 87081; 87205; 92610; 93005; 93306; 93926; 93970; 94640; G0378; J1815; J3490

== ENCOUNTER 2024-09-30 22:09 | Inpatient (IN) | payer MEDICARE, MEDICAID ==
[~2024-09-30] VITALS: Ht 162.6 cm; Wt 120.4 kg
[~2024-09-30 22:09] MED LIST changes: -ATOR20TA PO
[2024-09-30] MEDS: ALBUTEROL SULF 2.5 MG/0.5ML(0.5%) NEB SOLN NEB ONE (22:39)
[2024-09-30] MEDS: DexAMETHasone SOD PHOS 10MG/1ML VIAL INJ IV ONE (22:39)
[2024-09-30] MEDS: IPRATROPIUM BROM 0.5 MG/2.5ML INH SOL NEB ONE (22:39)
[2024-09-30 23:14] LABS: Alanine Aminotransferase 17 U/L (7-40); Albumin 4.3 g/dL (3.2-4.8); Anion Gap 4 (5-15); Aspartate Aminotransferase 21 U/L (13-40); Blood Urea Nitrogen 19 mg/dL (9-23); Calcium 9.6 mg/dL (8.7-10.4); Chloride 102 mmol/L (98-107); Lipase 39 U/L (12-53); Potassium 4.4 mmol/L (3.5-5.1); Sodium 145 mmol/L (136-145); Total Protein 6.6 g/dL (5.7-8.2)
[2024-09-30 23:22] LABS: Alkaline Phosphatase 167 U/L (46-116); Bilirubin, Total 0.3 mg/dL (0.2-1.0); Carbon Dioxide 39 mmol/L (20-31); Glucose 151 mg/dL (74-106)
--- NOTE | 2024-09-30 23:26 | DVH ---
CHEST RADIOGRAPH Indication: Shortness of breath Technique: Single frontal view of the chest was obtained COMPARISON: XY CHEST PORTABLE on DOS: 04/26/24 FINDINGS: Lines and Tubes: None Lungs: Clear Pleura: No effusion. No pneumothorax. Cardiomediastinal contours: Unremarkable Bones: Unremarkable IMPRESSION: No acute disease. No appreciable change compared to the prior chest x-ray from April 2024.
[2024-09-30 23:42] LABS: Urine Bacteria FEW /hpf (None Seen); Urine Blood 2+ /uL (Negative); Urine Clarity Turbid (Clear); Urine Color Yellow (Yellow); Urine Hyaline Cast FEW /lpf (0 - 2); Urine Protein, UAD TRACE (Negative); Urine Specific Gravity 1.019 (1.001-1.035); Urine Squamous Epithelial Cell MOD /hpf (<5); Urine Urobilinogen Normal (Negative); Urine WBC 9 /HPF (0-5); Urine pH 5.5 (5.0-9.0)
[2024-10-01] VITALS (11 sets, daily range): BP systolic 115–159; BP diastolic 60–83; PULSE 77–100; RESP 14–24; TEMP 97.6–98; O2SAT 87–100
[2024-10-01 00:46] LABS: Basophils # (auto) 0 10 ^3/uL (0-0.2); Eosinophils # (auto) 0.1 10 ^3/uL (0-0.8); Eosinophils % (auto) 1.5 % (0.0-7.0); Lymphocytes # (auto) 0.6 10 ^3/uL (0.4-5.4); Monocytes # (auto) 0.2 10 ^3/uL (0-1.3); Platelet Count (auto) 103 10^3/uL (140-450); White Blood Cell 3.4 10^3/uL (4.4-10.8)
[2024-10-01 00:48] LABS: Basophils % (auto) 0.3 % (0.0-2.0); Hematocrit 36.7 % (36.0-46.0); Hemoglobin 11.6 g/dL (12.2-16.2); Lymphocytes % (auto) 16.7 % (10.0-50.0); Mean Corpuscular Hemoglobin 24.3 pg (28.0-32.0); Mean Corpuscular Hgb Conc. 31.6 g/dL (32.0-36.0); Mean Corpuscular Volume 77.1 fL (80.0-100.0); Monocytes % (auto) 6.1 % (0.0-12.0); Neutrophils # (auto) 2.5 10 ^3/uL (1.6-8.6); Neutrophils % (auto) 75.4 % (37.0-80.0); Nucleated Red Blood Cells % 0.1 %; Red Blood Cells 4.76 10^6/uL (4.0-5.20); Red Cell Distribution Width 15.5 % (11.8-14.3)
--- NOTE | 2024-10-01 01:40 | ED.PDOC ---
SOB-HPI HPI Comments Patient is a pleasant but morbidly obese 89-year-old demented female who arrives facility via EMS from [facility] due to shortness a breath concerns for the past day. According to EMS, patient was on 2 L of O2 via nasal cannula when they arrived, but was satting at only 89%. EMS provided 6 L of O2 and the patient's saturation rate went to 98. Patient is A&O x2 at time of evaluation with minimal conversational skills. Patient was tachycardic and tachypneic at arrival. Chief Complaint: Shortness of Breath Time Seen by MD: 22:10 Primary Care Provider: UNKNOWN Reviewed notes: Nurses Notes, Human Resources Assistant Notes Information Source: Patient, Emergency Med Personnel Mode of Arrival: EMS Severity: Moderate Timing: Days Duration: Since onset Context: At Rest PE Risk Factors: None History of: COPD, CHF Prehospital treatment: 12 Lead EKG Modifying Factors: Nothing Associated Signs and Symptoms: Wheeze Past Medical History PAST MEDICAL HISTORY: CHF, CVA, Dementia, Depression, DM, Gout, HTN, Seizures Surgical History: Unknown TREATMENT SPECIALIST History: Denies all TREATMENT SPECIALIST Hx, Unobtainable Family History Family History: Unobtainable Social History Smoker: Unobtainable Alcohol: Unobtainable Drugs: Unobtainable Lives In: [facility] Constitutional: reports: weakness; denies: chills, diaphoresis, fatigue, fever, malaise, sweats, others EENTM: denies: blurred vision, double vision, ear bleeding, ear discharge, ear drainage, ear pain, ear ringing, eye pain, eye redness, hearing loss, mouth pain, mouth swelling, nasal discharge, nose bleeding, nose congestion, nose pain, photophobia, tearing, throat pain, throat swelling, voice changes, others Respiratory: reports: SOB at rest; denies: cough, hemoptysis, orthopnea, shortness of breath, SOB with excertion, stridor, wheezing, others Cardiovascular: denies: chest pain, dizzy spells, diaphoresis, Dyspnea on exertion, edema, irregular heart beat, left arm pain, lightheadedness, palpitations, PND, syncope, others Gastrointestinal: denies: abdomen distended, abdominal pain, blood streaked bowels, constipated, diarrhea, dysphagia, difficulty swallowing, hematemesis, melena, nausea, poor appetite, poor fluid intake, rectal bleeding, rectal pain, vomiting, others Genitourinary: denies: abnormal vagina bleeding, burning, dyspareunia, dysuria, flank pain, frequency, hematuria, incontinence, pain, , vagina discharge, urgency, others Neurological: denies: dizziness, fainting, headache, left sided numbness, left sided weakness, numbness, paresthesia, pre-existing deficit, right sided numbness, right sided weakness, seizure, speech problems, tingling, tremors, weakness, others Musculoskeletal: denies: back pain, gout, joint pain, joint swelling, muscle pain, muscle stiffness, neck pain, others Integumetry: denies: bruises, change in color, change in hair/nails, dryness, laceration, lesions, lumps, rash, wounds, others Allergic/Immunocompromised: denies: Difficulty Healing, Frequent Infections, Hives, Itching, others Hematologic/Lymphatic: denies: anemia, blood clots, easy bleeding, easy bruising, swollen glands, others Endocrine: denies: excessive hunger, excessive sweating, excessive thirst, excessive urination, flushing, intolerance to cold, intolerance to heat, unexplained weight gain, unexplained weight loss, others Psychiatric: denies: anxiety, bipolar disorder, depression, hopeless, panic disorder, schizophrenia, sleepless, suicidal, others Physical Exam General Appearance: Moderate Distress (Patient is in [id number] distress at time of evaluation due to shortness a breath concerns.), Obese HEENT: Normal ENT Inspection, Pharynx Normal, TMs Normal Neck: Full Range of Motion, Non-Tender, Normal, Normal Inspection Respiratory: Other (Wheezing and rhonchi appreciated right middle and right upper lobe as well as left upper lobe. No accessory muscle use. Patient was on 6 L of O2 via nasal cannula.) Cardiovascular: No Edema, No JVD, No Murmur, No Gallop, Normal Peripheral Pulses, Regular Rate/Rhythm Breast Exam: Deferred Gastrointestinal: No Organomegaly, Non Tender, No Pulsatile Mass, Normal Bowel Sounds, Soft Genitalia: Deferred Pelvic: Deferred Rectal: Deferred Extremities: NOT DONE Neurologic: NOT DONE Cerebellar Function: NOT DONE Reflexes: NOT DONE Skin: Dry, Normal Color, Warm Lymphatic: No Adenopathy Was a procedure done? Was a procedure done?: No Differential Dx Differential Diagnosis: Anxiety, Asthma, Bronchitis, CHF, COPD, Pneumonia, Pulmonary Embolism, Respiratory Distress, URI X-Ray, Labs, Meds, VS Vital Signs Date Time Temp Pulse Resp B/P (MAP) Pulse Ox O2 Delivery O2 Flow Rate FiO2 10/01/24 00:00 98.0 107 25 115/60 (78) 98 98.0 10/01/24 00:00 106 09/30/24 23:00 Nasal Cannula* 6 44 09/30/24 22:16 97.4 105 18 142/72 (95) 98 97.4 09/30/24 22:11 99 Lab Test 10/01/24 00:31 09/30/24 23:23 09/30/24 22:45 09/30/24 22:30 Range/Units White Blood Count 3.4 L 4.4-10.8 10^3/uL Red Blood Count 4.76 4.0-5.20 10^6/uL Hemoglobin 11.6 L 12.2-16.2 g/dL Hematocrit 36.7 36.0-46.0 % Mean Corpuscular Volume 77.1 L 80.0-100.0 fL Mean Corpuscular Hemoglobin 24.3 L 28.0-32.0 pg Mean Corpuscular Hemoglobin Concent 31.6 L 32.0-36.0 g/dL Red Cell Distribution Width 15.5 H 11.8-14.3 % Platelet Count 103 L 140-450 10^3/uL Mean Platelet Volume 9.2 6.9-10.8 fL Neutrophils (%) (Auto) 75.4 37.0-80.0 % Lymphocytes (%) (Auto) 16.7 10.0-50.0 % Monocytes (%) (Auto) 6.1 0.0-12.0 % Eosinophils (%) (Auto) 1.5 0.0-7.0 % Basophils (%) (Auto) 0.3 0.0-2.0 % Neutrophils # (Auto) 2.5 1.6-8.6 10 ^3/uL Lymphocytes # (Auto) 0.6 0.4-5.4 10 ^3/uL Monocytes # (Auto) 0.2 0-1.3 10 ^3/uL Eosinophils # (Auto) 0.1 0-0.8 10 ^3/uL Basophils # (Auto) 0 0-0.2 10 ^3/uL Nucleated Red Blood Cells 0.1 % Lactic Acid Level 1.5 0.4-2.0 mmol/L Troponin I High Sensitivity 18 18 </=34 ng/L B-Type Natriuretic Peptide 24.71 0-100 pg/mL Urine Color Yellow Yellow Urine Clarity Turbid H Clear Urine pH 5.5 5.0-9.0 Urine Specific [place] 1.019 1.001-1.035 Urine Protein Trace H Negative Urine Ketones Negative Negative Urine Blood 2+ H Negative /uL Urine Nitrite Negative Negative Urine Bilirubin Negative Negative Urine Urobilinogen Normal Negative mg/dL Urine Leukocyte Esterase Trace Negative /uL Urine RBC 28 0 - 4 /hpf Urine Microscopic WBC 9 H 0-5 /HPF Urine Squamous Epithelial Cells Mod <5 /hpf Urine Bacteria Few H None Seen /hpf Urine Hyaline Casts Few 0 - 2 /lpf Urine Glucose Normal Normal mg/dL Sodium Level 145 136-145 mmol/L Potassium Level 4.4 3.5-5.1 mmol/L Chloride Level 102 98-107 mmol/L Carbon Dioxide Level 39 H 20-31 mmol/L Anion Gap 4 L 5-15 Blood Urea Nitrogen 19 9-23 mg/dL Creatinine 0.76 0.550-1.02 mg/dL Glomerular Filtration Rate Calc 75 >90 mL/min BUN/Creatinine Ratio 25.0 H 10.0-20.0 Serum Glucose 151 H 74-106 mg/dL Calcium Level 9.6 8.7-10.4 mg/dL Total Bilirubin 0.3 0.2-1.0 mg/dL Aspartate Amino Transferase (AST) 21 13-40 U/L Alanine Aminotransferase (ALT) 17 7-40 U/L Alkaline Phosphatase 167 H 46-116 U/L Total Protein 6.6 5.7-8.2 g/dL Albumin 4.3 3.2-4.8 g/dL Lipase 39 12-53 U/L POC Glucose 135 H 70-106 mg/dl Current Medications Medications (Trade) Dose Ordered Sig/Itzel Route Start Time Stop Time Status Last Admin Albuterol (Ventolin Medneb) 5 mg ONCE ONCE NEB 09/30/24 22:30 09/30/24 22:31 DC 09/30/24 22:39 Ipratropium [place] (Atrovent Medneb) 0.5 mg ONCE ONCE NEB 09/30/24 22:30 09/30/24 22:31 DC 09/30/24 22:39 Dexamethasone Sodium Phosphate (Decadron Injection) 10 mg ONCE ONCE IV 09/30/24 22:30 09/30/24 22:31 DC 09/30/24 22:39 X-Ray, Labs, Meds, VS Comment All studies performed the ED were evaluated by me personally. Patient's laboratories revealed a pancytopenia as well as a urinary tract infection and an elevated alk-phos. EKG revealed an atrial flutter with a predominant 3-1 AV block. Rate of 99 and QT interval of 336. Chest x-ray was unremarkable for any new consolidation or acute disease. No appreciable changes from May 03 x- ray. Patient will be admitted for acute respiratory distress as well as urinary tract infection concerns. Time of 1ST Reevaluation: 01:36 Reevaluation 1ST: Improved Consultation: PCP Patient Education/Counseling: Diagnosis, Treatment Family Education/Counseling: Diagnosis, Treatment Sepsis Sepsis Reasesment Focused Exam Orders: Laboratory Tests 10/01/24 00:31: Lactic Acid Level 1.5 Departure 1 Departure Time of Disposition: 01:38 Impression: Primary Impression: Acute respiratory distress Additional Impression: Urinary tract infection Disposition: ADMITTED INPATIENT Condition: Stable Discharged With: Self Critical Care Note Critical Care Time?: No Stability Stability form required: No Heart Score Heart Score: Heart Score Response (Comments) Value History Slightly Suspicious 0 EKG Repolarization Disturb 1 Age >65 2 Risk Factors 1 or 2 risk factors 1 Troponin Normal limit 0 Total 4 GRICELDA VENEGAS PAC October 01, 2024 01:40
[2024-10-01] MEDS: cefTRIAXone 1GM/50ML D5W 50 ML IV ONE (02:11)
[2024-10-01] MEDS ORDERED: MORPHINE SULFATE INJ 2 MG/ml SYRG IV PRN (02:15)
[2024-10-01] MEDS ORDERED: ACETAMINOPHEN 325 MG TAB PO PRN (02:15)
[2024-10-01] MEDS ORDERED: NITROGLYCERIN 0.4 MG SL TAB SL PRN (02:15)
[2024-10-01] MEDS ORDERED: ALBUTEROL SULF 2.5 MG/0.5ML(0.5%) NEB SOLN NEB PRN ×2 (02:15→11:15)
[2024-10-01] MEDS ORDERED: ONDANSETRON HCL 4 MG/2 ML VIAL IV PRN (02:15)
[2024-10-01] MEDS ORDERED: IPRATROPIUM BROM 0.5 MG/2.5ML INH SOL NEB PRN (02:15)
[2024-10-01] MEDS ORDERED: DOCUSATE SOD 100 MG CAP PO PRN (02:15)
[2024-10-01] MEDS ORDERED: DEXTROSE (50%) 50ML SYRG IV PRN (02:15)
--- NOTE | 2024-10-01 02:23 | DVHHP2 ---
History of Present Illness Reason for Visit: Acute respiratory distress History of Present Illness The patient is a 89-year-old female with multiple past medical history including dementia, depression, DM, seizures, and hypertension who presented to [facility] ED with complaint of shortness of breaths. Patient's symptoms progressively get worse, desaturating on oxygen 2 L/min at 89 %, increased work of breathing, and was placed on oxygen 6 L/min via nasal cannula and O2 saturation improved to 98% EN route to our facility ED. Patient was seen and evaluated in the ED, laboratory data shows WBC 3.4, hemoglobin 11.6, hematocrit 36.7, platelets 103, sodium 145, potassium 4.4, BUN 19, lactic acid 1.5, creatinine 0.76, glucose 151, troponin 18, BNP 24.71, lipase 39, blood pressure 116/60, heart rate 106, temperature 98.0 F, O2 saturation 97% on oxygen. Patient was given breathing treatment, please see medication orders section in the computer. On my assessment, patient denied chest pain, no headache, no dizziness, currently on oxygen, no diaphoresis, no nausea, no vomiting, no fever, no chills. Patient was admitted for further evaluation and medical management. Past Medical History CHF, CVA, Dementia, Depression, DM, Gout, HTN, Seizures Past Surgical History No history of surgery on file Family History Reviewed, noncontributory to the management of this case. Past Social History The patient lives at home, denies smoking, alcohol or illicit drugs abuse. Review of Systems Constitutional: No: Fever, Chills, Sweats, Weakness, Malaise, Other Eyes: No: Pain, Vision change, Conjunctivae inflammation, Eyelid inflammation, Other, Redness ENT: No: Ear pain, Ear discharge, Nose pain, Nose discharge, Nose congestion, Mouth pain, Mouth swelling, Throat pain, Throat swelling, Other Respiratory: Shortness of breath, Other (SOB at rest); No: Cough, Dry, SOB with excertion, Wheezing, Hemoptysis, Pleuritic Pain, Sputum, Wheezing Cardiovascular: No: Chest Pain, Palpitations, Orthopnea, Paroxysmal Noc. Dyspnea, Edema, Lt Headedness, Other Gastrointestinal: No: Nausea, Vomiting, Abdominal Pain, Diarrhea, Constipation, Melena, Hematochezia, Other Genitourinary: No Dysuria, No Frequency, No Incontinence, No Hematuria, No Retention, No Other Musculoskeletal: No: other, neck pain, shoulder pain, arm pain, back pain, hand pain, leg pain, foot pain Skin: No: Rash, Lesions, Jaundice, Bruising, Other Neurological: No: Weakness, Numbness, Incoordination, Change in speech, Confusion, Seizures, Other Allergies: Coded Allergies: NO KNOWN ALLERGIES (Unverified , 01/15/19) Exam Vital Signs Vital Signs Date Time Temp Pulse Resp B/P (MAP) Pulse Ox O2 Delivery O2 Flow Rate FiO2 10/01/24 00:00 98.0 107 25 115/60 (78) 98 98.0 09/30/24 23:00 Nasal Cannula* 6 44 General Appearance: Alert, Oriented X3, Cooperative, No acute distress HEENT: Atraumatic, PERRLA, EOMI, Mucous membr. moist/pink Respiratory: Normal air movement, Other (Shortness of breaths) Cardiovascular: Regular rate, Normal S1, Normal S2, No murmurs Abdominal: Normal bowel sounds, Soft, No tenderness, No hepatospenomegaly, No masses Extremities: No clubbing, No cyanosis, No edema, Normal pulses, No tenderness/swelling Skin: No rashes, No breakdown, No significant lesion Neuro: Normal speech, Normal tone, Sensation intact, Cranial nerves 3-12 NL, Reflexes 2+, Other (Generalized weakness) Psych/Mental Status: Mental status NL, Mood NL Labs/Xrays Labs Test 10/01/24 00:31 09/30/24 23:23 09/30/24 22:45 09/30/24 22:30 Range/Units White Blood Count 3.4 L 4.4-10.8 10^3/uL Red Blood Count 4.76 4.0-5.20 10^6/uL Hemoglobin 11.6 L 12.2-16.2 g/dL Hematocrit 36.7 36.0-46.0 % Mean Corpuscular Volume 77.1 L 80.0-100.0 fL Mean Corpuscular Hemoglobin 24.3 L 28.0-32.0 pg Mean Corpuscular Hemoglobin Concent 31.6 L 32.0-36.0 g/dL Red Cell Distribution Width 15.5 H 11.8-14.3 % Platelet Count 103 L 140-450 10^3/uL Mean Platelet Volume 9.2 6.9-10.8 fL Neutrophils (%) (Auto) 75.4 37.0-80.0 % Lymphocytes (%) (Auto) 16.7 10.0-50.0 % Monocytes (%) (Auto) 6.1 0.0-12.0 % Eosinophils (%) (Auto) 1.5 0.0-7.0 % Basophils (%) (Auto) 0.3 0.0-2.0 % Neutrophils # (Auto) 2.5 1.6-8.6 10 ^3/uL Lymphocytes # (Auto) 0.6 0.4-5.4 10 ^3/uL Monocytes # (Auto) 0.2 0-1.3 10 ^3/uL Eosinophils # (Auto) 0.1 0-0.8 10 ^3/uL Basophils # (Auto) 0 0-0.2 10 ^3/uL Nucleated Red Blood Cells 0.1 % Lactic Acid Level 1.5 0.4-2.0 mmol/L Troponin I High Sensitivity 18 </=34 ng/L B-Type Natriuretic Peptide 24.71 0-100 pg/mL Urine Color Yellow Yellow Urine Clarity Turbid H Clear Urine pH 5.5 5.0-9.0 Urine Specific [place] 1.019 1.001-1.035 Urine Protein Trace H Negative Urine Ketones Negative Negative Urine Blood 2+ H Negative /uL Urine Nitrite Negative Negative Urine Bilirubin Negative Negative Urine Urobilinogen Normal Negative mg/dL Urine Leukocyte Esterase Trace Negative /uL Urine RBC 28 0 - 4 /hpf Urine Microscopic WBC 9 H 0-5 /HPF Urine Squamous Epithelial Cells Mod <5 /hpf Urine Bacteria Few H None Seen /hpf Urine Hyaline Casts Few 0 - 2 /lpf Urine Glucose Normal Normal mg/dL Sodium Level 145 136-145 mmol/L Potassium Level 4.4 3.5-5.1 mmol/L Chloride Level 102 98-107 mmol/L Carbon Dioxide Level 39 H 20-31 mmol/L Anion Gap 4 L 5-15 Blood Urea Nitrogen 19 9-23 mg/dL Creatinine 0.76 0.550-1.02 mg/dL Glomerular Filtration Rate Calc 75 >90 mL/min BUN/Creatinine Ratio 25.0 H 10.0-20.0 Serum Glucose 151 H 74-106 mg/dL Calcium Level 9.6 8.7-10.4 mg/dL Total Bilirubin 0.3 0.2-1.0 mg/dL Aspartate Amino Transferase (AST) 21 13-40 U/L Alanine Aminotransferase (ALT) 17 7-40 U/L Alkaline Phosphatase 167 H 46-116 U/L Total Protein 6.6 5.7-8.2 g/dL Albumin 4.3 3.2-4.8 g/dL Lipase 39 12-53 U/L POC Glucose 135 H 70-106 mg/dl PATIENT: BREANNA BATISTAACCT: [id number] UNIT: [id number] : 1935 LOC: ER ROOM / BED: / AGE / SEX: 89 / F ADM STATUS: REG ER SERVICE 20 ORDERING PHYSICIAN: GRICELDA VENEGAS PAC PROCEDURE(s): CXRP - CHEST PORTABLE REASON: Shortness of breath ORDER NUMBER(s): [id number], ACCESSION NUMBER(s): [id number] CHEST RADIOGRAPH Indication: Shortness of breath Technique: Single frontal view of the chest was obtained COMPARISON: XY CHEST PORTABLE on DOS: 04/26/24 FINDINGS: Lines and Tubes: None Lungs: Clear Pleura: No effusion. No pneumothorax. Cardiomediastinal contours: Unremarkable Bones: Unremarkable IMPRESSION: No acute disease. No appreciable change compared to the prior chest x-ray from April 2024. Assessment/Plan Assessment/Plan Acute respiratory distress Urinary tract infection Generalized weakness Plan 1. Admit to telemetry unit 2. Breathing treatment 3. Pain control management 4. IV antibiotic management 5. Management of fluids and electrolytes 6. Consultation for hospitalist 7. Diagnostic test chest x-ray 8. DVT prophylaxis-on Eliquis 9. Repeat labs CBC, CMP in a.m. 10. Home medication reviewed and reconciled 11. Continue with current medical management 12. Treatment plan discussed with patient and RN. Patient verbalized understanding. Plan discussed with: Patient, Other (RN) Problem List: (1) Acute respiratory distress (2) Urinary tract infection (3) Generalized weakness Date of Service: October 01, 2024 Billing Provider: MARSHA VELASCO DNP Common Visit Codes: [id number] INP/OBS CARE (HIGH) MARSHA VELASCO DNP October 01, 2024 02:23
--- NOTE | 2024-10-01 02:33 | ECG ---
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
[2024-10-01] MEDS: SODIUM CHLOR 0.9% PF (SALINE LOCK) 10ML VIAL/SYR IV SCH (06:04)
[2024-10-01] MEDS: ACCU-CHEK COMFORT CURVE STRIP VI SCH (06:33)
[2024-10-01] MEDS: InsuLIN REG 1unit/0.01ml Soln (100units/ml) SC SCH (06:35)
[2024-10-01] MEDS: amLODIPine BESYLATE 5 MG TAB PO SCH (07:12)
[2024-10-01] MEDS: methylPREDNISolone SOD SUCC 40 MG/ML VL IV SCH (07:13)
[2024-10-01] MEDS: APIXABAN 2.5 MG TAB PO SCH (07:13)
[2024-10-01] MEDS: METOPROLOL TARTRATE 25 MG TAB PO SCH (07:13)
[2024-10-01] MEDS: FAMOTIDINE (10MG/ML) 2ML VL IV SCH (07:13)
[2024-10-01] MEDS: cefTRIAXone 1GM/50ML D5W 50 ML IV SCH (07:14)
[2024-10-01] MEDS: levETIRAcetam 500 mg/100ml 100 ML IV SCH (07:14)
[2024-10-01] MEDS ORDERED: LACTULOSE 20Gm/30ML SOLN PO PRN (11:15)
--- NOTE | 2024-10-01 11:19 | DVHPN2 ---
Subjective NO CHANGE Reviewed: Care Plan, H&P, Labs, Medications, Previous Orders, Radiology Changes from previous H/P or p: No Changes Respiratory: Shortness of breath, Other (SOB at rest) Objective Vitals Vital Signs Date Time Temp Pulse Resp B/P (MAP) Pulse Ox O2 Delivery O2 Flow Rate FiO2 10/01/24 09:19 85 23 123/81 (95) 99 10/01/24 07:44 Nasal Cannula* 2 28 10/01/24 07:10 98.8 98.8 General Appearance: Alert, Cooperative, No acute distress, Other (DEMENTIA) HEENT: Atraumatic Lungs: Other (CRACKLES AND MILD WHEEZING BILATERAL LUNGS WITH DECREASED AIR ENTRY AND FEW RHONCHI) Cardiovascular: Regular rate Abdomen: Soft, No tenderness Extremities: Other (EDEMA OF THE LOWER EXTREMITIES) Medications Current Medications Medications Dose Ordered Sig/Itzel Route Start Time Stop Time Status Last Admin Dose Admin Albuterol 2.5 mg Q4HPRN PRN NEB 10/01/24 02:15 Ipratropium [place] 0.5 mg Q4HPRN PRN NEB 10/01/24 02:15 Amlodipine Besylate 5 mg DAILY PO 10/01/24 10:00 10/01/24 07:12 5 MG Atorvastatin Calcium 10 mg HS PO 10/01/24 22:00 Famotidine 20 mg DAILY IV 10/01/24 10:00 10/01/24 07:13 20 MG Metoprolol Tartrate 12.5 mg BID PO 10/01/24 10:00 10/01/24 07:13 12.5 MG Donepezil HCl 5 mg HS PO 10/01/24 22:00 Methylprednisolone Sodium Succinate 40 mg BID IV 10/01/24 10:00 10/01/24 07:13 40 MG Ceftriaxone Sodium 50 ml @ 100 mls/hr DAILY@09 IV 10/01/24 09:00 10/01/24 07:14 100 MLS/HR Levetiracetam 100 ml @ 400 mls/hr BID IV 10/01/24 10:00 10/01/24 07:14 400 MLS/HR Apixaban 2.5 mg BID PO 10/01/24 10:00 10/01/24 07:13 2.5 MG Diagnostic Test (Pha) 1 strip ACHS 10/01/24 07:00 10/01/24 10:46 1 STRIP Insulin Human Regular ACHS SC 10/01/24 07:00 10/01/24 10:31 6 UNITS Dextrose 50 ml UD PRN IV 10/01/24 02:15 Sodium Chloride 10 ml Q8HR IV 10/01/24 06:00 10/01/24 10:47 10 ML Acetaminophen/ Hydrocodone Bitart 1 tab Q4HP PRN PO 10/01/24 02:15 Ondansetron HCl 4 mg Q4HP PRN IV 10/01/24 02:15 Docusate Sodium 100 mg BIDPRN PRN PO 10/01/24 02:15 Acetaminophen 650 mg Q6HP PRN PO 10/01/24 02:15 Nitroglycerin 0.4 mg Q5MINP PRN SL 10/01/24 02:15 Morphine Sulfate 2 mg Q30M PRN IV 10/01/24 02:15 Doxycycline Hyclate 100 ml @ 50 mls/hr Q12H IV 10/01/24 11:15 UNV Laboratory Results Laboratory Tests 09/30/24 22:45 10/01/24 00:31 Chemistry Test 09/30/24 22:45 Albumin 4.3 g/dL (3.2-4.8) Calcium Level 9.6 mg/dL (8.7-10.4) Total Protein 6.6 g/dL (5.7-8.2) Coagulation Test 10/01/24 00:31 D-Dimer, Quantitative 1.54 mg/L FEU (0.0-0.49) H Lipid panel Test 09/30/24 22:45 Lipase 39 U/L (12-53) Cardiac Markers Test 10/01/24 00:31 B-Type Natriuretic Peptide 24.71 pg/mL (0-100) LFT Test 09/30/24 22:45 Alanine Aminotransferase (ALT) 17 U/L (7-40) Alkaline Phosphatase 167 U/L (46-116) H Aspartate Amino Transferase (AST) 21 U/L (13-40) Total Bilirubin 0.3 mg/dL (0.2-1.0) Urinalysis Test 09/30/24 23:23 Urine Color Yellow (Yellow) Urine Clarity Turbid (Clear) H Urine pH 5.5 (5.0-9.0) Urine Specific [place] 1.019 (1.001-1.035) Urine Protein Trace (Negative) H Urine Ketones Negative (Negative) Urine Blood 2+ /uL (Negative) H Urine Nitrite Negative (Negative) Urine Bilirubin Negative (Negative) Urine Urobilinogen Normal mg/dL (Negative) Urine Leukocyte Esterase Trace /uL (Negative) Urine RBC 28 /hpf (0 - 4) Urine Microscopic WBC 9 /HPF (0-5) H Urine Squamous Epithelial Cells Mod /hpf (<5) Urine Bacteria Few /hpf (None Seen) H Urine Hyaline Casts Few /lpf (0 - 2) Urine Glucose Normal mg/dL (Normal) Assessment/Plan Assessment/Plan ACUTE RESPIRATORY FAILURE COPD EXACERBATION DIASTOLIC HEART FAILURE ELEVATED D-DIMER RULE OUT PE DEMENTIA DIABETES HYPERTENSION DEPRESSION SEIZURES PANCYTOPENIA UTI PLAN: IV SOLU-MEDROL. ADD DOXYCYCLINE. WE WILL OBTAIN CHEST CT ANGIOGRAM. FURTHER PLAN PER ORDERS Plan discussed with: Other (NURSING) My Orders Orders - SAM VILLEDA MD Procedure Category Date Status Time Ct Angio Chest CT 10/01/24 Logged Contrast 11:12 Doxycycline PHA 10/01/24 Logged 100mg/100ml 11:15 Albuterol Medneb PHA 10/01/24 Verified (Ventolin Medneb) 12:00 Albuterol Medneb PHA 10/01/24 Verified (Ventolin Medneb) 11:15 Ipratropium Medneb PHA 10/01/24 Verified (Atrovent Medneb) 12:00 Chest Portable XY 10/02/24 Verified 05:00 Lactulose Oral PHA 10/01/24 Verified 11:15 Document Home Meds ED NURSING 10/01/24 Verified Get List Of Home ORDERS 10/01/24 Verified Medications 11:14 Updated And Reviewed RIA 10/01/24 Verified Preferred 11:14 Date of Service: October 01, 2024 Billing Provider: SAM VILLEDA MD Common Visit Codes: [id number] INP/OBS CARE(HIGH) SAM VILLEDA MD October 01, 2024 11:19
[2024-10-01] MEDS: IOHEXOL 350 MG/ML 100ML IJ ONE (11:53)
[2024-10-01] MEDS: DOXYCYCLINE 100MG/100ML 100 ML IV SCH (12:10)
--- NOTE | 2024-10-01 13:50 | DVH ---
Procedure: CT CT ANGIO CHEST CONTRAST Reason for study/Clinical History: ro PE Comparison Study: None Exam Date: 10/01/2024 12:55 PM Radiation Dose Information: CT Dose: CTDI volume is 28.92 mGy. Dose-length product is 888.48 mGy*cm Contrast: Type of contrast: Patient's IV became dislodged during the examination and complete injection was not accomplished. Contrast inject: Injection not complete IV became dislodged. Contrast wasted:0 TECHNIQUE: After the uneventful administration of intravenous contrast intravenously, CT imaging was performed through the chest. Coronal and sagittal reformations were performed by the technologist. FINDINGS: Lower Neck: Visualized portions of the thyroid gland are unremarkable. Aorta and Vasculature: Normal caliber of thoracic aorta. Inadequate opacification of the pulmonary ar radha exclude pulmonary emboli. No enlargement of the pulmonary artery to suggest pulmonary artery hyp ertension. Lymph Nodes: No enlarged intrathoracic lymph nodes. Mediastinum: Heart size is normal. There is no pericardial effusion. The esophagus is unremarkable. Lungs: Atelectasis in the left infrahilar region. Calcifications in the wall of the trachea and bron chi in branching bronchials. Musculoskeletal: No acute osseous abnormality. Upper abdomen: Limited portions of the upper abdomen are unremarkable. IMPRESSION: 1. IV became dislodged before completion of the injection and pulmonary emboli can not be excluded. 2. Left lower lobe infiltrate and atelectasis. 3. Distended gallbladder with no calcified gallstones. 4. Bilateral renal cysts. HS:Y All CT scans at this medical facility are performed using dose modulation techniques as appropriate t o a performed exam including the following: Automated exposure control was utilized; adjustment of th e MA and/or KV according to patient size; and use of iterative reconstruction technique.
[2024-10-01] MEDS: ALBUTEROL SULF 2.5 MG/0.5ML(0.5%) NEB SOLN NEB SCH (14:36)
[2024-10-01] MEDS: IPRATROPIUM BROM 0.5 MG/2.5ML INH SOL NEB SCH (14:36)
[2024-10-01] MEDS: MUPIROCIN 2% OINT 15gm or 22gm FOR MRSA NARES EACHNOSTRI SCH (22:00)
[2024-10-01] MEDS: DONEPEZIL HYDROCHLORIDE 5 MG TAB PO SCH (23:06)
[2024-10-01] MEDS: ATORVASTATIN 20 MG TAB PO SCH (23:07)
[2024-10-02] VITALS (15 sets, daily range): BP systolic 139–151; BP diastolic 70–81; PULSE 76–102; RESP 17–20; TEMP 97.5–98.4; O2SAT 92–99
--- NOTE | 2024-10-02 08:18 | DVH ---
CHEST RADIOGRAPH Indication: FU Technique: Single frontal view of the chest was obtained COMPARISON: XY CHEST PORTABLE on DOS: 09/30/24, XY CHEST PORTABLE on DOS: 04/26/24, XY CHEST PORTABLE on DOS: 08/31/23, XY CHEST PORTABLE on DOS: 08/12/23, XY CHEST PORTABLE on DOS: 10/29/22 FINDINGS: Lines and Tubes: None Lungs: Opacification of the left hemithorax. Pleura: No effusion. No pneumothorax. Cardiomediastinal contours: Unremarkable Bones: Unremarkable IMPRESSION: Opacification of the left hemithorax may represent mucous plugging. Clinical correlation advised.
[2024-10-02] MEDS ORDERED: AZITHROMYCIN 500MG/ 250ML 250 ML IV SCH (10:00)
--- NOTE | 2024-10-02 10:35 | DVHINCON2 ---
Date of service: October 02, [address] Conrad Reason for Consultation Acute respiratory failure History of Present Illness History Source: Patient Exam Limitations: No limitations HPI Patient is an 89-year old lady with a history of dementia, seizures and hypertension who presented with shortness of breath. Was seen in the emergency room where she was found to have increased work of breathing and was placed on [address] of the chest demonstrated left lower lobe pneumonia and pulmonology was consulted to assist in management. Home Meds Active Scripts Isavuconazonium Sulfate (Cresemba) 186 Mg Cap, 186 MG PO DAILY for 30 Days, #60 CAP Prov:ROSA LUX MD 08/17/23 Reported Medications Furosemide (Furosemide) 40 Mg Tab, 1 TAB PO DAILY for 30 Days, #30 04/27/24 Nitroglycerin (Nitrostat) 0.4 Mg Sub, 1 TAB SL UD for 30 Days, #100 04/27/24 Apixaban Base (ELIQUIS) 2.5 Mg Tab, 1 TAB PO BID for 14 Days, #28 04/27/24 Atorvastatin Calcium (Lipitor) 10 Mg Tab, 1 TAB PO DAILY for 30 Days, #30 04/27/24 Famotidine (Famotidine) 20 Mg Tab, 1 TAB PO DAILY for 30 Days, #30 08/14/23 Amlodipine Besylate (Amlodipine Besylate) 5 Mg Tab, 1 TAB PO DAILY 08/14/23 Levetiracetam (Levetiracetam) 100 Mg/Ml Ara, PO BID for 30 Days, #300 Take 10 mL by mouth at 9 AM, and 15 mL by mouth at 9 PM for seizures. 08/14/23 Sertraline HCl (Sertraline Hydrochloride) 100 Mg Tab, 1 TAB PO DAILY for 30 Days, #30 01/10/22 Risperidone (RisperDAL TABLET) 1 Mg Tb, 1 TAB PO QPM, #30 TAB 1 Refill 01/10/22 Metoprolol Tartrate (Metoprolol Tartrate) 25 Mg Tab, 1 TAB PO BID for 30 Days, #60 01/10/22 Insulin Regular (Human) (Humulin R) 100 Unit/Ml Inj, SC BID for 28 Days, #10 Per sliding scale 01/10/22 Clonidine Hydrochloride (Clonidine Hcl) 0.1 Mg Tab, 0.1 MG PO BID 01/10/22 Donepezil Hydrochloride (Aricept) 5 Mg Tab, 5 MG PO DAILY, TAB 01/10/22 Allopurinol (Allopurinol) 100 Mg Tab, 1 TAB PO DAILY for 30 Days, #30 01/10/22 Past Medical History Cardiac: HTN Pulmonary: No pertinent Hx Central Nervous System: Dementia, Seizure GI: No pertinent Hx Hemotology/Oncology: No pertinent Hx Hepatobiliary: No pertinent Hx Psychiatric: No pertinent Hx Musculoskeletal: No pertinent Hx Rheumotologic: No pertinent Hx Infectious Disease: No peritnent Hx ENT: No pertinent Hx Renal/: No pertinent Hx Endocrine: No pertinent Hx Dermatology: No pertinent Hx Past Surgical History: No pertinent Hx Family History: Cancer Patient Family History: FH: lung cancer G8 SISTER FH: uterine cancer G8 MOTHER Smoker: No Hx (Negative) Alocohol: None Drugs: None Lives with: With family Domestic Violence: Neg Review of Systems Constitutional: No symptom reported Ears, Nose, & Throat: No symptom reported Eyes: No symptom reported Pulmonary/Respiratory: Dyspnea Cardiovascular: No symptom reported Gastrointestinal: No symptom reported Genitourinary: No symptom reported Musculoskeletal: No symptom reported Skin: No symptom reported Psychiatric: No symptom reported Endocrine: No symptom reported Hemotologic/Lymphatic: No symptom reported H&P Exam Vital Signs Vital Signs Date Time Temp Pulse Resp B/P (MAP) Pulse Ox O2 Delivery O2 Flow Rate FiO2 10/02/24 08:37 98.4 76 18 142/76 (98) 92 98.4 10/02/24 07:07 Nasal Cannula 4.0 10/02/24 07:07 36 General Appeara: Well developed, Well nourished, Normal Appearance Head Exam: Normal inspection Neck Exam: Normal inspection, Non-tender, Normal alignment Eye Exam: bilateral eye Normal inspection, bilateral eye PERRL, bilateral eye EOMI Ear Exam: bilateral ear Auricle normal, bilateral ear Canal normal, bilateral ear TM normal Nasal Exam: Normal inspection Mouth: Normal Inspection Pulmonary/Respiratory: Decreased breath sounds Peripheral Pulses: 4+ Radial (R), 4+ Radial (L), 4+ Brachial (R), 4+ Brachial (L) Abdominal Exam: Normal bowel sounds Labs/Xrays Labs Test 10/02/24 06:45 10/01/24 00:31 09/30/24 23:23 09/30/24 22:45 Range/Units POC Glucose 261 H 70-106 mg/dl White Blood Count 3.4 L 4.4-10.8 10^3/uL Red Blood Count 4.76 4.0-5.20 10^6/uL Hemoglobin 11.6 L 12.2-16.2 g/dL Hematocrit 36.7 36.0-46.0 % Mean Corpuscular Volume 77.1 L 80.0-100.0 fL Mean Corpuscular Hemoglobin 24.3 L 28.0-32.0 pg Mean Corpuscular Hemoglobin Concent 31.6 L 32.0-36.0 g/dL Red Cell Distribution Width 15.5 H 11.8-14.3 % Platelet Count 103 L 140-450 10^3/uL Mean Platelet Volume 9.2 6.9-10.8 fL Neutrophils (%) (Auto) 75.4 37.0-80.0 % Lymphocytes (%) (Auto) 16.7 10.0-50.0 % Monocytes (%) (Auto) 6.1 0.0-12.0 % Eosinophils (%) (Auto) 1.5 0.0-7.0 % Basophils (%) (Auto) 0.3 0.0-2.0 % Neutrophils # (Auto) 2.5 1.6-8.6 10 ^3/uL Lymphocytes # (Auto) 0.6 0.4-5.4 10 ^3/uL Monocytes # (Auto) 0.2 0-1.3 10 ^3/uL Eosinophils # (Auto) 0.1 0-0.8 10 ^3/uL Basophils # (Auto) 0 0-0.2 10 ^3/uL Nucleated Red Blood Cells 0.1 % D-Dimer, Quantitative 1.54 H 0.0-0.49 mg/L FEU Lactic Acid Level 1.5 0.4-2.0 mmol/L Troponin I High Sensitivity 18 </=34 ng/L B-Type Natriuretic Peptide 24.71 0-100 pg/mL Urine Color Yellow Yellow Urine Clarity Turbid H Clear Urine pH 5.5 5.0-9.0 Urine Specific [place] 1.019 1.001-1.035 Urine Protein Trace H Negative Urine Ketones Negative Negative Urine Blood 2+ H Negative /uL Urine Nitrite Negative Negative Urine Bilirubin Negative Negative Urine Urobilinogen Normal Negative mg/dL Urine Leukocyte Esterase Trace Negative /uL Urine RBC 28 0 - 4 /hpf Urine Microscopic WBC 9 H 0-5 /HPF Urine Squamous Epithelial Cells Mod <5 /hpf Urine Bacteria Few H None Seen /hpf Urine Hyaline Casts Few 0 - 2 /lpf Urine Glucose Normal Normal mg/dL Sodium Level 145 136-145 mmol/L Potassium Level 4.4 3.5-5.1 mmol/L Chloride Level 102 98-107 mmol/L Carbon Dioxide Level 39 H 20-31 mmol/L Anion Gap 4 L 5-15 Blood Urea Nitrogen 19 9-23 mg/dL Creatinine 0.76 0.550-1.02 mg/dL Glomerular Filtration Rate Calc 75 >90 mL/min BUN/Creatinine Ratio 25.0 H 10.0-20.0 Serum Glucose 151 H 74-106 mg/dL Calcium Level 9.6 8.7-10.4 mg/dL Total Bilirubin 0.3 0.2-1.0 mg/dL Aspartate Amino Transferase (AST) 21 13-40 U/L Alanine Aminotransferase (ALT) 17 7-40 U/L Alkaline Phosphatase 167 H 46-116 U/L Total Protein 6.6 5.7-8.2 g/dL Albumin 4.3 3.2-4.8 g/dL Lipase 39 12-53 U/L Microbiology Date/Time Source Procedure Growth Status 10/01/24 06:40 Nose MRSA Screen - Final Methicillin Resistant S.aureus Complete 10/01/24 00:34 Blood Blood Culture - Preliminary NO GROWTH AFTER 24 HOURS OF INCUBATION. Resulted Assessment/Plan Plan Impression Acute hypoxemic respiratory failure Pneumonia Atelectasis Dementia Patient seen and examined Events Low oxygen requirements On 2 liters nasal cannula Vital signs stable Labs and imaging reviewed CT of the chest shows left lower lobe pneumonia Management Supplemental oxygen Titrate to maintain sats 90% or above Incentive spirometry Antibiotics Bronchodilators Monitor renal function Monitor electrolytes Supplement as needed Obtain ultrasound of the chest to assess pleural effusions DVT prophylaxis Plan discussed with: Patient JOVAN RON MD October 02, 2024 10:35
[2024-10-02 11:19] LABS: Alanine Aminotransferase 17 U/L (7-40); Anion Gap 8 (5-15); Aspartate Aminotransferase 21 U/L (13-40); BUN/Creatinine Ratio 32.9 (10.0-20.0); Calcium 9.5 mg/dL (8.7-10.4); Chloride 101 mmol/L (98-107); Potassium 3.9 mmol/L (3.5-5.1); Sodium 144 mmol/L (136-145); Total Protein 6.1 g/dL (5.7-8.2)
[2024-10-02 11:24] LABS: Alkaline Phosphatase 136 U/L (46-116); Bilirubin, Total 0.2 mg/dL (0.2-1.0); Blood Urea Nitrogen 27 mg/dL (9-23); Carbon Dioxide 35 mmol/L (20-31); Glucose 338 mg/dL (74-106)
[2024-10-02 11:35] LABS: Basophils # (auto) 0 10 ^3/uL (0-0.2); Basophils % (auto) 0.3 % (0.0-2.0); Eosinophils # (auto) 0.1 10 ^3/uL (0-0.8); Eosinophils % (auto) 1.4 % (0.0-7.0); Hemoglobin 10.9 g/dL (12.2-16.2); Lymphocytes # (auto) 0.7 10 ^3/uL (0.4-5.4); Mean Corpuscular Hemoglobin 24.3 pg (28.0-32.0); Mean Corpuscular Hgb Conc. 31.1 g/dL (32.0-36.0); Monocytes # (auto) 0.5 10 ^3/uL (0-1.3); Monocytes % (auto) 13.6 % (0.0-12.0); Neutrophils # (auto) 2.6 10 ^3/uL (1.6-8.6); Neutrophils % (auto) 67.7 % (37.0-80.0); Platelet Count (auto) 130 10^3/uL (140-450); Red Blood Cells 4.49 10^6/uL (4.0-5.20); Red Cell Distribution Width 15.2 % (11.8-14.3); White Blood Cell 3.9 10^3/uL (4.4-10.8)
--- NOTE | 2024-10-02 12:07 | DVH ---
US BiLat Lower DVT HISTORY: ble COMPARISON: US BILAT LOWER DVT on DOS: 04/27/24 TECHNIQUE: Duplex doppler evaluation of the deep venous system of the lower extremity from the common femoral veins, superficial femoral vein, great saphenous vein, deep femoral vein, popliteal vein, an d calf veins, including color doppler and spectral/pulsed waveform analysis, was performed. FINDINGS: Right: - Common femoral vein: Compressible - Deep femoral vein: Compressible - Femoral vein: Compressible - Popliteal vein: Not seen. - Posterior tibial vein: Waveforms present - Other: Nothing Left: - Common femoral vein: Compressible - Deep femoral vein: Compressible - Femoral vein: Compressible - Popliteal vein: Compressible - Posterior tibial vein: Waveforms present - Peroneal vein: Waveforms present - Other: Nothing IMPRESSION: No right or left lower extremity deep venous thrombosis of the visualized veins.
[2024-10-02] MEDS: AZITHROMYCIN 500MG/ 250ML 250 ML IV SCH (14:00)
--- NOTE | 2024-10-02 14:56 | DVHPN2 ---
Subjective NO CHANGE Reviewed: Care Plan, H&P, Labs, Medications, Previous Orders, Radiology Changes from previous H/P or p: No Changes Objective Vitals Vital Signs Date Time Temp Pulse Resp B/P (MAP) Pulse Ox O2 Delivery O2 Flow Rate FiO2 10/02/24 12:41 97.9 91 18 142/70 (94) 97 97.9 10/02/24 11:10 Nasal Cannula* 3 32 Intake/Output Intake and Output 10/02/24 07:00 Intake Total 740 ml Output Total 1251 ml Balance -511 ml Intake Oral 740 ml Output Urine Total 1250 ml Stool Total 1 ml General Appearance: Alert, Cooperative, No acute distress, Other (DEMENTIA) HEENT: Atraumatic Lungs: Other (Better air entry in both lungs) Cardiovascular: Regular rate Abdomen: Soft, No tenderness Extremities: Other (EDEMA OF THE LOWER EXTREMITIES) Medications Current Medications Medications Dose Ordered Sig/Itzel Route Start Time Stop Time Status Last Admin Dose Admin Amlodipine Besylate 5 mg DAILY PO 10/01/24 10:00 10/02/24 11:00 5 MG Atorvastatin Calcium 10 mg HS PO 10/01/24 22:00 10/01/24 23:07 10 MG Famotidine 20 mg DAILY IV 10/01/24 10:00 10/02/24 10:59 20 MG Metoprolol Tartrate 12.5 mg BID PO 10/01/24 10:00 10/02/24 11:00 12.5 MG Donepezil HCl 5 mg HS PO 10/01/24 22:00 10/01/24 23:06 5 MG Methylprednisolone Sodium Succinate 40 mg BID IV 10/01/24 10:00 10/02/24 10:59 40 MG Ceftriaxone Sodium 50 ml @ 100 mls/hr DAILY@09 IV 10/01/24 09:00 10/02/24 09:00 100 MLS/HR Levetiracetam 100 ml @ 400 mls/hr BID IV 10/01/24 10:00 10/02/24 10:00 400 MLS/HR Apixaban 2.5 mg BID PO 10/01/24 10:00 10/02/24 10:59 2.5 MG Diagnostic Test (Pha) 1 strip ACHS 10/01/24 07:00 10/02/24 11:44 1 STRIP Insulin Human Regular ACHS SC 10/01/24 07:00 10/02/24 11:30 8 UNITS Dextrose 50 ml UD PRN IV 10/01/24 02:15 Sodium Chloride 10 ml Q8HR IV 10/01/24 06:00 10/02/24 06:47 10 ML Acetaminophen/ Hydrocodone Bitart 1 tab Q4HP PRN PO 10/01/24 02:15 Ondansetron HCl 4 mg Q4HP PRN IV 10/01/24 02:15 Docusate Sodium 100 mg BIDPRN PRN PO 10/01/24 02:15 Acetaminophen 650 mg Q6HP PRN PO 10/01/24 02:15 Nitroglycerin 0.4 mg Q5MINP PRN SL 10/01/24 02:15 Morphine Sulfate 2 mg Q30M PRN IV 10/01/24 02:15 Albuterol 2.5 mg Q6HR NEB 10/01/24 12:00 10/02/24 11:10 2.5 MG Albuterol 2.5 mg Q3HPRN PRN NEB 10/01/24 11:15 Ipratropium [place] 0.5 mg Q6HR NEB 10/01/24 12:00 10/02/24 11:10 0.5 MG Lactulose 30 ml DAILY PRN PO 10/01/24 11:15 Mupirocin 1 applic BID EACHNOSTRI 10/01/24 22:00 10/06/24 21:59 10/02/24 10:00 1 APPLIC Azithromycin 250 ml @ 125 mls/hr DAILY@1400 IV 10/02/24 14:00 Laboratory Results Laboratory Tests 10/02/24 10:27 Chemistry Test 10/02/24 10:27 Albumin 4.0 g/dL (3.2-4.8) Calcium Level 9.5 mg/dL (8.7-10.4) Total Protein 6.1 g/dL (5.7-8.2) LFT Test 10/02/24 10:27 Alanine Aminotransferase (ALT) 17 U/L (7-40) Alkaline Phosphatase 136 U/L (46-116) H Aspartate Amino Transferase (AST) 21 U/L (13-40) Total Bilirubin 0.2 mg/dL (0.2-1.0) HgA1c, TSH Test 10/02/24 10:27 Hemoglobin A1c 8.3 % A1C (<5.7) H Urinalysis Test 09/30/24 23:23 Urine Color Yellow (Yellow) Urine Clarity Turbid (Clear) H Urine pH 5.5 (5.0-9.0) Urine Specific [place] 1.019 (1.001-1.035) Urine Protein Trace (Negative) H Urine Ketones Negative (Negative) Urine Blood 2+ /uL (Negative) H Urine Nitrite Negative (Negative) Urine Bilirubin Negative (Negative) Urine Urobilinogen Normal mg/dL (Negative) Urine Leukocyte Esterase Trace /uL (Negative) Urine RBC 28 /hpf (0 - 4) Urine Microscopic WBC 9 /HPF (0-5) H Urine Squamous Epithelial Cells Mod /hpf (<5) Urine Bacteria Few /hpf (None Seen) H Urine Hyaline Casts Few /lpf (0 - 2) Urine Glucose Normal mg/dL (Normal) Microbiology Microbiology Date/Time Source Procedure Growth Status 10/01/24 12:07 Voided Urine Urine Culture - Preliminary Resulted 10/01/24 06:40 Nose MRSA Screen - Final Methicillin Resistant S.aureus Complete 10/01/24 00:34 Blood Blood Culture - Preliminary NO GROWTH AFTER 24 HOURS OF INCUBATION. Resulted Assessment/Plan Assessment/Plan Opacification of left lung/possible mucus plug ACUTE RESPIRATORY FAILURE COPD EXACERBATION DIASTOLIC HEART FAILURE ELEVATED D-DIMER RULE OUT PE DEMENTIA DIABETES HYPERTENSION DEPRESSION SEIZURES PANCYTOPENIA UTI PLAN: Continue current plan of care. Pulmonology consult with Dr. Fischer. Further plan per orders Plan discussed with: Patient, Other (Nursing) My Orders Orders - SAM VILLEDA MD Procedure Category Date Status Time Hepatitis B Surface LAB 10/01/24 In Process Antigen 15:05 Hepatitis C Antibody LAB 10/01/24 In Process 15:05 *Podiatry Consult CONS 10/04/24 Transmitted [facility]) 08:00 Insert Midline ORDERS 10/01/24 Transmitted 15:05 *Consult CONS 10/02/24 Transmitted / 09:47 Complete Blood Count LAB 10/03/24 Verified 06:00 Comprehensive LAB 10/03/24 Verified Metabolic Panel 06:00 Chest Portable XY 10/03/24 Logged 06:00 Nm Vq Scan NM 10/02/24 Logged 09:57 Bilat Lower Dvt US 10/02/24 Resulted 09:57 Azithromycin 500mg/ PHA 5/25/25 In Process 250ml (Zithromax 50 14:00 Consistent DIET 10/02/24 Transmitted [facility])Diabetes Lunch Date of Service: October 02, 2024 Billing Provider: SAM VILLEDA MD Common Visit Codes: [id number] INP/OBS CARE(HIGH) SAM VILLEDA MD October 02, 2024 14:55
[2024-10-02] MEDS: ALLOPURINOL 100 MG TAB PO SCH (15:04)
[2024-10-02] MEDS: levETIRAcetam 500 MG TAB PO SCH (21:06)
[2024-10-02] MEDS ORDERED: DEXTROSE (50%) 50ML SYRG IV PRN (22:00)
[2024-10-03] VITALS (18 sets, daily range): BP systolic 129–160; BP diastolic 62–81; PULSE 77–101; RESP 18–28; TEMP 97.9–98.7; O2SAT 92–100
[2024-10-03] MEDS: ACCU-CHEK COMFORT CURVE STRIP VI SCH
[2024-10-03] MEDS: InsuLIN REG 1unit/0.01ml Soln (100units/ml) SC SCH (01:03)
[2024-10-03 07:24] LABS: Basophils # (auto) 0 10 ^3/uL (0-0.2); Eosinophils # (auto) 0 10 ^3/uL (0-0.8); Hemoglobin 10.6 g/dL (12.2-16.2); Lymphocytes # (auto) 0.6 10 ^3/uL (0.4-5.4); Mean Corpuscular Volume 76.7 fL (80.0-100.0); Monocytes # (auto) 0.5 10 ^3/uL (0-1.3); Neutrophils # (auto) 4.6 10 ^3/uL (1.6-8.6); White Blood Cell 5.8 10^3/uL (4.4-10.8)
[2024-10-03 07:26] LABS: Basophils % (auto) 0.1 % (0.0-2.0); Hematocrit 33.3 % (36.0-46.0); Lymphocytes % (auto) 10.8 % (10.0-50.0); Mean Corpuscular Hemoglobin 24.4 pg (28.0-32.0); Mean Corpuscular Hgb Conc. 31.8 g/dL (32.0-36.0); Monocytes % (auto) 9.1 % (0.0-12.0); Nucleated Red Blood Cells % 0.2 %; Platelet Count (auto) 111 10^3/uL (140-450); Red Blood Cells 4.34 10^6/uL (4.0-5.20); Red Cell Distribution Width 14.5 % (11.8-14.3)
[2024-10-03 07:39] LABS: Alanine Aminotransferase 13 U/L (7-40); Anion Gap 9 (5-15); Aspartate Aminotransferase 16 U/L (13-40); BUN/Creatinine Ratio 25.3 (10.0-20.0); Blood Urea Nitrogen 20 mg/dL (9-23); Calcium 9.6 mg/dL (8.7-10.4); Chloride 102 mmol/L (98-107); Potassium 4.1 mmol/L (3.5-5.1); Sodium 145 mmol/L (136-145); Total Protein 6.2 g/dL (5.7-8.2)
[2024-10-03 07:41] LABS: Alkaline Phosphatase 135 U/L (46-116); Bilirubin, Total 0.2 mg/dL (0.2-1.0); Carbon Dioxide 34 mmol/L (20-31); Glucose 338 mg/dL (74-106)
--- NOTE | 2024-10-03 08:23 | DVH ---
CHEST RADIOGRAPH Indication: fu Technique: Single frontal view of the chest was obtained Comparison: XY CHEST PORTABLE on DOS: 10/02/24 FINDINGS: Lines and Tubes: None Lungs: Complete opacification of the left hemithorax. Right lung remains clear. Pleura: No right effusion. Can not exclude left pleural effusion. No pneumothorax. Cardiomediastinal contours: Left side of the cardiac silhouette is obscured. Bones: No acute osseous abnormality. IMPRESSION: 1. Complete opacification of the left hemithorax which may be related to consolidation, atelectasis a nd/or pleural effusion.
--- NOTE | 2024-10-03 09:53 | DVHPN2 ---
Reviewed: Care Plan, H&P, Labs, Medications, Previous Orders, Radiology Changes from previous H/P or p: No Changes Objective Vitals Vital Signs Date Time Temp Pulse Resp B/P (MAP) Pulse Ox O2 Delivery O2 Flow Rate FiO2 10/03/24 08:45 97.9 96 19 148/73 (98) 97 97.9 10/03/24 05:57 Nasal Cannula 2.0 10/03/24 05:57 28 Intake/Output Intake and Output 10/03/24 07:00 Intake Total 2060 ml Output Total 1151 ml Balance 909 ml Intake Oral 1660 ml IV Total 400 ml Output Urine Total 1150 ml Stool Total 1 ml General Appearance: Alert, Cooperative, No acute distress, Other (DEMENTIA) HEENT: Atraumatic Lungs: Other (Better air entry in both lungs) Cardiovascular: Regular rate Abdomen: Soft, No tenderness Extremities: Other (EDEMA OF THE LOWER EXTREMITIES) Medications Current Medications Medications Dose Ordered Sig/Itzel Route Start Time Stop Time Status Last Admin Dose Admin Amlodipine Besylate 5 mg DAILY PO 10/01/24 10:00 10/02/24 11:00 5 MG Atorvastatin Calcium 10 mg HS PO 10/01/24 22:00 10/02/24 21:09 10 MG Famotidine 20 mg DAILY IV 10/01/24 10:00 10/02/24 10:59 20 MG Metoprolol Tartrate 12.5 mg BID PO 10/01/24 10:00 10/02/24 21:08 12.5 MG Donepezil HCl 5 mg HS PO 10/01/24 22:00 10/02/24 21:09 5 MG Ceftriaxone Sodium 50 ml @ 100 mls/hr DAILY@09 IV 10/01/24 09:00 10/02/24 09:00 100 MLS/HR Apixaban 2.5 mg BID PO 10/01/24 10:00 10/02/24 21:09 2.5 MG Sodium Chloride 10 ml Q8HR IV 10/01/24 06:00 10/03/24 04:17 10 ML Acetaminophen/ Hydrocodone Bitart 1 tab Q4HP PRN PO 10/01/24 02:15 Ondansetron HCl 4 mg Q4HP PRN IV 10/01/24 02:15 Docusate Sodium 100 mg BIDPRN PRN PO 10/01/24 02:15 Acetaminophen 650 mg Q6HP PRN PO 10/01/24 02:15 Nitroglycerin 0.4 mg Q5MINP PRN SL 10/01/24 02:15 Morphine Sulfate 2 mg Q30M PRN IV 10/01/24 02:15 Albuterol 2.5 mg Q6HR NEB 10/01/24 12:00 10/03/24 05:52 2.5 MG Albuterol 2.5 mg Q3HPRN PRN NEB 10/01/24 11:15 Ipratropium [place] 0.5 mg Q6HR NEB 10/01/24 12:00 10/03/24 05:51 0.5 MG Lactulose 30 ml DAILY PRN PO 10/01/24 11:15 Mupirocin 1 applic BID EACHNOSTRI 10/01/24 22:00 10/06/24 21:59 10/02/24 21:33 1 APPLIC Azithromycin 250 ml @ 125 mls/hr DAILY@1400 IV 10/02/24 14:00 10/02/24 14:00 125 MLS/HR Methylprednisolone Sodium Succinate 40 mg DAILY IV 10/03/24 10:00 Allopurinol 100 mg DAILY PO 10/02/24 15:04 10/02/24 15:04 100 MG Levetiracetam 1,000 mg BID PO 10/02/24 22:00 10/02/24 21:06 1,000 MG Diagnostic Test (Pha) 1 strip IQ4HR 10/03/24 00:00 10/03/24 04:17 1 STRIP Insulin Human Regular IQ4HR SC 10/03/24 00:00 10/03/24 04:15 8 UNITS Dextrose 50 ml UD PRN IV 10/02/24 22:00 Laboratory Results Laboratory Tests 10/03/24 05:01 Chemistry Test 10/02/24 10:27 10/03/24 05:01 Albumin 4.0 g/dL (3.2-4.8) 4.0 g/dL (3.2-4.8) Calcium Level 9.5 mg/dL (8.7-10.4) 9.6 mg/dL (8.7-10.4) Total Protein 6.1 g/dL (5.7-8.2) 6.2 g/dL (5.7-8.2) LFT Test 10/02/24 10:27 10/03/24 05:01 Alanine Aminotransferase (ALT) 17 U/L (7-40) 13 U/L (7-40) Alkaline Phosphatase 136 U/L (46-116) H 135 U/L (46-116) H Aspartate Amino Transferase (AST) 21 U/L (13-40) 16 U/L (13-40) Total Bilirubin 0.2 mg/dL (0.2-1.0) 0.2 mg/dL (0.2-1.0) HgA1c, TSH Test 10/02/24 10:27 Hemoglobin A1c 8.3 % A1C (<5.7) H Urinalysis Test 09/30/24 23:23 Urine Color Yellow (Yellow) Urine Clarity Turbid (Clear) H Urine pH 5.5 (5.0-9.0) Urine Specific [place] 1.019 (1.001-1.035) Urine Protein Trace (Negative) H Urine Ketones Negative (Negative) Urine Blood 2+ /uL (Negative) H Urine Nitrite Negative (Negative) Urine Bilirubin Negative (Negative) Urine Urobilinogen Normal mg/dL (Negative) Urine Leukocyte Esterase Trace /uL (Negative) Urine RBC 28 /hpf (0 - 4) Urine Microscopic WBC 9 /HPF (0-5) H Urine Squamous Epithelial Cells Mod /hpf (<5) Urine Bacteria Few /hpf (None Seen) H Urine Hyaline Casts Few /lpf (0 - 2) Urine Glucose Normal mg/dL (Normal) Microbiology Microbiology Date/Time Source Procedure Growth Status 10/01/24 12:07 Voided Urine Urine Culture - Final Complete 10/01/24 06:40 Nose MRSA Screen - Final Methicillin Resistant S.aureus Complete 10/01/24 00:34 Blood Blood Culture - Preliminary Resulted Labs and/or images reviewed: Labs reviewed by me, Image(s) reviewed by me Assessment/Plan Assessment/Plan Acute hypoxic respiratory failure: Oxygen by nasal cannula consult for Dr. Yeboah Complete opacification of the left lung: Chest ultrasound ordered to rule out pleural effusion Acute left lower lobe pneumonia Rocephin azithromycin Solu-Medrol Acute COPD exacerbation Elevated D-dimer: DVT ruled out PE could not be ruled out because of lack of IV contrast, we will order V/Q scan Acute diastolic heart failure Dementia Diabetes Hypertension Depression Seizures Pancytopenia UTI MRSA screen positive: Bactroban nasal ointment Blood cultures pending Time spent 70 minutes Advanced care planning time 20 minutes Patient is full code Plan discussed with: Patient My Orders Orders - MARCELL QUISPE MD Procedure Category Date Status Time Chest Ultrasound US 10/03/24 Logged 09:44 Date of Service: October 03, 2024 Billing Provider: MARCELL QUISPE MD Common Visit Codes: [id number] CARE 30-74 MIN MARCELL QUISPE MD October 03, 2024 09:53
[2024-10-03 10:07] LABS: Hepatitis B Surface Antigen Negative (Negative)
[2024-10-03 10:29] LABS: Hepatitis C Antibody Negative (Negative)
--- NOTE | 2024-10-03 10:37 | DVH ---
US CHEST ULTRASOUND, HISTORY: Left pleural effusion COMPARISON(S): None TECHNICAL DATA: Transverse and longitudinal images are obtained of the chest. FINDING: IMPRESSION(S): There is no pleural effusion.
[2024-10-03] MEDS: methylPREDNISolone SOD SUCC 40 MG/ML VL IV SCH (12:16)
[2024-10-03] MEDS: HYDROcodone-ACET 5/325MG TAB PO PRN (12:39)
--- NOTE | 2024-10-03 15:25 | DVHPN2 ---
Progress Note - Dictate Date Seen: October 03, 2024 Medical Necessity Reason Pt with a Central, PICC or Fol: No vital signs Vital Sign Date Time Temp Pulse Resp B/P (MAP) Pulse Ox O2 Delivery O2 Flow Rate FiO2 10/03/24 13:15 89 150/81 10/03/24 13:00 97.9 19 96 97.9 10/03/24 08:00 Nasal Cannula* 2 28 Total Intake and Output 10/02/24 10/02/24 10/03/24 15:00 23:00 07:00 Intake Total 400 ml 620 ml 1040 ml Output Total 401 ml 750 ml Balance 400 ml 219 ml 290 ml medications Current Medications Medications Dose Ordered Sig/Itzel Route Start Time Stop Time Status Last Admin Dose Admin Amlodipine Besylate 5 mg DAILY PO 10/01/24 10:00 10/03/24 12:15 5 MG Atorvastatin Calcium 10 mg HS PO 10/01/24 22:00 10/02/24 21:09 10 MG Famotidine 20 mg DAILY IV 10/01/24 10:00 10/03/24 12:14 20 MG Metoprolol Tartrate 12.5 mg BID PO 10/01/24 10:00 10/03/24 12:15 12.5 MG Donepezil HCl 5 mg HS PO 10/01/24 22:00 10/02/24 21:09 5 MG Ceftriaxone Sodium 50 ml @ 100 mls/hr DAILY@09 IV 10/01/24 09:00 10/03/24 09:00 100 MLS/HR Apixaban 2.5 mg BID PO 10/01/24 10:00 10/03/24 12:14 2.5 MG Sodium Chloride 10 ml Q8HR IV 10/01/24 06:00 10/03/24 14:00 10 ML Acetaminophen/ Hydrocodone Bitart 1 tab Q4HP PRN PO 10/01/24 02:15 10/03/24 12:39 1 TAB Ondansetron HCl 4 mg Q4HP PRN IV 10/01/24 02:15 Docusate Sodium 100 mg BIDPRN PRN PO 10/01/24 02:15 Acetaminophen 650 mg Q6HP PRN PO 10/01/24 02:15 Nitroglycerin 0.4 mg Q5MINP PRN SL 10/01/24 02:15 Morphine Sulfate 2 mg Q30M PRN IV 10/01/24 02:15 Albuterol 2.5 mg Q6HR NEB 10/01/24 12:00 10/03/24 11:35 2.5 MG Albuterol 2.5 mg Q3HPRN PRN NEB 10/01/24 11:15 Ipratropium [place] 0.5 mg Q6HR NEB 10/01/24 12:00 10/03/24 11:35 0.5 MG Lactulose 30 ml DAILY PRN PO 10/01/24 11:15 Mupirocin 1 applic BID EACHNOSTRI 10/01/24 22:00 10/06/24 21:59 10/03/24 10:00 1 APPLIC Azithromycin 250 ml @ 125 mls/hr DAILY@1400 IV 10/02/24 14:00 10/03/24 14:00 125 MLS/HR Methylprednisolone Sodium Succinate 40 mg DAILY IV 10/03/24 10:00 10/03/24 12:16 40 MG Allopurinol 100 mg DAILY PO 10/02/24 15:04 10/03/24 12:14 100 MG Levetiracetam 1,000 mg BID PO 10/02/24 22:00 10/03/24 12:15 1,000 MG Diagnostic Test (Pha) 1 strip IQ4HR 10/03/24 00:00 10/03/24 12:00 1 STRIP Insulin Human Regular IQ4HR SC 10/03/24 00:00 10/03/24 12:00 4 UNITS Dextrose 50 ml UD PRN IV 10/02/24 22:00 laboratory and microbiology Laboratory Tests 10/03/24 05:01 Test 10/03/24 05:01 Range/Units Serum Glucose 338 H 74-106 mg/dL Assessment/Plan Impression Acute hypoxemic respiratory failure Pneumonia Atelectasis Dementia Patient seen and examined Events Low oxygen requirements On 2 liters nasal cannula No acute events Labs and imaging reviewed CT of the chest shows left lower lobe pneumonia Ultrasound of the chest shows no evidence of pleural effusions Management Supplemental oxygen Titrate to maintain sats 90% or above Incentive spirometry Continue antibiotics F/u cultures Bronchodilators Monitor renal function Monitor electrolytes Supplement as needed DVT prophylaxis Plan discussed with: Patient JOVAN RON MD October 03, 2024 15:25
[2024-10-04] VITALS (15 sets, daily range): BP systolic 122–173; BP diastolic 62–80; PULSE 67–86; RESP 18–22; TEMP 97.8–98.4; O2SAT 93–100
--- NOTE | 2024-10-04 08:26 | DVHPN2 ---
Reviewed: Care Plan, H&P, Labs, Medications, Previous Orders, Radiology Changes from previous H/P or p: No Changes Objective Vitals Vital Signs Date Time Temp Pulse Resp B/P (MAP) Pulse Ox O2 Delivery O2 Flow Rate FiO2 10/04/24 06:35 68 18 98 10/04/24 06:27 Nasal Cannula 2.0 10/04/24 06:27 28 10/04/24 05:00 98.0 122/71 (88) 98.0 Intake/Output Intake and Output 10/04/24 07:00 Intake Total 1000 ml Output Total 1250 ml Balance -250 ml Intake Oral 700 ml IV Total 300 ml Output Urine Total 1250 ml General Appearance: Alert, Cooperative, No acute distress, Other HEENT: Atraumatic Lungs: Other Cardiovascular: Regular rate Abdomen: Soft, No tenderness Extremities: Other Medications Current Medications Medications Dose Ordered Sig/Itzel Route Start Time Stop Time Status Last Admin Dose Admin Amlodipine Besylate 5 mg DAILY PO 10/01/24 10:00 10/03/24 12:15 5 MG Atorvastatin Calcium 10 mg HS PO 10/01/24 22:00 10/03/24 21:29 10 MG Famotidine 20 mg DAILY IV 10/01/24 10:00 10/03/24 12:14 20 MG Metoprolol Tartrate 12.5 mg BID PO 10/01/24 10:00 10/03/24 21:29 12.5 MG Donepezil HCl 5 mg HS PO 10/01/24 22:00 10/03/24 21:30 5 MG Ceftriaxone Sodium 50 ml @ 100 mls/hr DAILY@09 IV 10/01/24 09:00 10/03/24 09:00 100 MLS/HR Apixaban 2.5 mg BID PO 10/01/24 10:00 10/03/24 21:29 2.5 MG Sodium Chloride 10 ml Q8HR IV 10/01/24 06:00 10/04/24 07:58 10 ML Acetaminophen/ Hydrocodone Bitart 1 tab Q4HP PRN PO 10/01/24 02:15 10/03/24 12:39 1 TAB Ondansetron HCl 4 mg Q4HP PRN IV 10/01/24 02:15 Docusate Sodium 100 mg BIDPRN PRN PO 10/01/24 02:15 Acetaminophen 650 mg Q6HP PRN PO 10/01/24 02:15 Nitroglycerin 0.4 mg Q5MINP PRN SL 10/01/24 02:15 Morphine Sulfate 2 mg Q30M PRN IV 10/01/24 02:15 Albuterol 2.5 mg Q6HR NEB 10/01/24 12:00 10/04/24 06:27 2.5 MG Albuterol 2.5 mg Q3HPRN PRN NEB 10/01/24 11:15 Ipratropium [place] 0.5 mg Q6HR NEB 10/01/24 12:00 10/04/24 06:27 0.5 MG Lactulose 30 ml DAILY PRN PO 10/01/24 11:15 Mupirocin 1 applic BID EACHNOSTRI 10/01/24 22:00 10/06/24 21:59 10/03/24 23:29 1 APPLIC Azithromycin 250 ml @ 125 mls/hr DAILY@1400 IV 10/02/24 14:00 10/03/24 14:00 125 MLS/HR Methylprednisolone Sodium Succinate 40 mg DAILY IV 10/03/24 10:00 10/03/24 12:16 40 MG Allopurinol 100 mg DAILY PO 10/02/24 15:04 10/03/24 12:14 100 MG Levetiracetam 1,000 mg BID PO 10/02/24 22:00 10/03/24 21:28 1,000 MG Diagnostic Test (Pha) 1 strip IQ4HR 10/03/24 00:00 10/04/24 04:00 1 STRIP Insulin Human Regular IQ4HR SC 10/03/24 00:00 10/04/24 04:42 6 UNITS Dextrose 50 ml UD PRN IV 10/02/24 22:00 Laboratory Results Laboratory Tests 10/03/24 05:01 Urinalysis Test 09/30/24 23:23 Urine Color Yellow (Yellow) Urine Clarity Turbid (Clear) H Urine pH 5.5 (5.0-9.0) Urine Specific [place] 1.019 (1.001-1.035) Urine Protein Trace (Negative) H Urine Ketones Negative (Negative) Urine Blood 2+ /uL (Negative) H Urine Nitrite Negative (Negative) Urine Bilirubin Negative (Negative) Urine Urobilinogen Normal mg/dL (Negative) Urine Leukocyte Esterase Trace /uL (Negative) Urine RBC 28 /hpf (0 - 4) Urine Microscopic WBC 9 /HPF (0-5) H Urine Squamous Epithelial Cells Mod /hpf (<5) Urine Bacteria Few /hpf (None Seen) H Urine Hyaline Casts Few /lpf (0 - 2) Urine Glucose Normal mg/dL (Normal) Microbiology Microbiology Date/Time Source Procedure Growth Status 10/01/24 12:07 Voided Urine Urine Culture - Final Complete 10/01/24 06:40 Nose MRSA Screen - Final Methicillin Resistant S.aureus Complete 10/01/24 00:34 Blood Blood Culture - Preliminary Resulted Labs and/or images reviewed: Labs reviewed by me, Image(s) reviewed by me Assessment/Plan Assessment/Plan Acute hypoxic respiratory failure: Oxygen by nasal cannula consult for Dr. Yeboah Complete opacification of the left lung: Chest ultrasound ruled out pleural effusion Acute left lower lobe pneumonia Rocephin azithromycin Solu-Medrol Acute COPD exacerbation med neb Elevated D-dimer: DVT ruled out PE could not be ruled out because of lack of IV contrast, we will order V/Q scan Acute diastolic heart failure Dementia Diabetes Hypertension Depression Seizures Pancytopenia UTI History of CVA MRSA screen positive: Bactroban nasal ointment Blood cultures pending Time spent 70 minutes Advanced care planning time 20 minutes Daughter Raymond [phone] at bedside Patient is full code Patient has been in the [facility] the last three years after a massive stroke Plan discussed with: Patient My Orders Orders - MARCELL QUISPE MD Procedure Category Date Status Time Chest Ultrasound US 10/03/24 Resulted 09:44 Date of Service: October 04, 2024 Billing Provider: MARCELL QUISPE MD Common Visit Codes: [id number] INP/OBS CARE(HIGH) Secondary Visit Codes: [id number] CARE PLAN 30 MINUTES MARCELL QUISPE MD October 04, 2024 08:26
--- NOTE | 2024-10-04 14:41 | DVHINCON2 ---
Date Seen: October 04, 2024 Reason for Consultation bilateral foot dryness History of Present Illness The patient is a 89-year-old female with multiple past medical history including dementia, depression, DM, seizures, and hypertension who presented to [facility] ED with complaint of shortness of breaths. Patient's symptoms progressively get worse, desaturating on oxygen 2 L/min at 89 %, increased work of breathing, and was placed on oxygen 6 L/min via nasal cannula and O2 saturation improved to 98% EN route to our facility ED. Patient was seen and evaluated in the ED, laboratory data shows WBC 3.4, hemoglobin 11.6, hematocrit 36.7, platelets 103, sodium 145, potassium 4.4, BUN 19, lactic acid 1.5, creatinine 0.76, glucose 151, troponin 18, BNP 24.71, lipase 39, blood pressure 116/60, heart rate 106, temperature 98.0 F, O2 saturation 97% on oxygen. Patient was given breathing treatment, please see medication orders section in the computer. On my assessment, patient denied chest pain, no headache, no dizziness, currently on oxygen, no diaphoresis, no nausea, no vomiting, no fever, no chills. Patient was admitted for further evaluation and medical management. Past Medical History See H&P Past Surgical History See H&P Family History: FH: lung cancer G8 SISTER FH: uterine cancer G8 MOTHER Allergies: Coded Allergies: NO KNOWN ALLERGIES (Unverified , 01/15/19) Home Meds Active Scripts Isavuconazonium Sulfate (Cresemba) 186 Mg Cap, 186 MG PO DAILY for 30 Days, #60 CAP Prov:ROSA LUX MD 08/17/23 Reported Medications Furosemide (Furosemide) 40 Mg Tab, 1 TAB PO DAILY for 30 Days, #30 04/27/24 Nitroglycerin (Nitrostat) 0.4 Mg Sub, 1 TAB SL UD for 30 Days, #100 04/27/24 Apixaban Base (ELIQUIS) 2.5 Mg Tab, 1 TAB PO BID for 14 Days, #28 04/27/24 Atorvastatin Calcium (Lipitor) 10 Mg Tab, 1 TAB PO DAILY for 30 Days, #30 04/27/24 Famotidine (Famotidine) 20 Mg Tab, 1 TAB PO DAILY for 30 Days, #30 08/14/23 Amlodipine Besylate (Amlodipine Besylate) 5 Mg Tab, 1 TAB PO DAILY 08/14/23 Levetiracetam (Levetiracetam) 100 Mg/Ml Ara, PO BID for 30 Days, #300 Take 10 mL by mouth at 9 AM, and 15 mL by mouth at 9 PM for seizures. 08/14/23 Sertraline HCl (Sertraline Hydrochloride) 100 Mg Tab, 1 TAB PO DAILY for 30 Days, #30 01/10/22 Risperidone (RisperDAL TABLET) 1 Mg Tb, 1 TAB PO QPM, #30 TAB 1 Refill 01/10/22 Metoprolol Tartrate (Metoprolol Tartrate) 25 Mg Tab, 1 TAB PO BID for 30 Days, #60 01/10/22 Insulin Regular (Human) (Humulin R) 100 Unit/Ml Inj, SC BID for 28 Days, #10 Per sliding scale 01/10/22 Clonidine Hydrochloride (Clonidine Hcl) 0.1 Mg Tab, 0.1 MG PO BID 01/10/22 Donepezil Hydrochloride (Aricept) 5 Mg Tab, 5 MG PO DAILY, TAB 01/10/22 Allopurinol (Allopurinol) 100 Mg Tab, 1 TAB PO DAILY for 30 Days, #30 01/10/22 Vital Signs Vital Signs Date Time Temp Pulse Resp B/P (MAP) Pulse Ox O2 Delivery O2 Flow Rate FiO2 10/04/24 13:46 98.2 80 20 167/77 (107) 95 98.2 10/04/24 11:51 Nasal Cannula 2.0 10/04/24 11:51 28 Physical Exam Dermatological: Dry, xerotic skin noted bilaterally No open wounds No signs of infection or trauma All toenails thickened, drystropic and discolored consistent with fungal infection All 10 nails painful on palpation Vascular: Dorsalis pedis and posterior tibial pulses are 2+ bilaterally Capillary refill is <2 seconds Skin temperature is warm bilaterally Neurologic: Protective sensation absent to 10g monofilament Vibration sensation absent Musculoskeletal: Range of motion at the ankle and MTP joints is within normal limits. Strength is 5/5 in all tested muscle groups. Labs/Diagnostic Data Labs Test 10/04/24 12:42 10/03/24 05:01 10/02/24 10:27 10/01/24 00:31 Range/Units POC Glucose 273 H 70-106 mg/dl White Blood Count 5.8 # 4.4-10.8 10^3/uL Red Blood Count 4.34 4.0-5.20 10^6/uL Hemoglobin 10.6 L 12.2-16.2 g/dL Hematocrit 33.3 L 36.0-46.0 % Mean Corpuscular Volume 76.7 L 80.0-100.0 fL Mean Corpuscular Hemoglobin 24.4 L 28.0-32.0 pg Mean Corpuscular Hemoglobin Concent 31.8 L 32.0-36.0 g/dL Red Cell Distribution Width 14.5 H 11.8-14.3 % Platelet Count 111 L 140-450 10^3/uL Mean Platelet Volume 9.8 6.9-10.8 fL Neutrophils (%) (Auto) 80.0 37.0-80.0 % Lymphocytes (%) (Auto) 10.8 10.0-50.0 % Monocytes (%) (Auto) 9.1 0.0-12.0 % Eosinophils (%) (Auto) 0.0 0.0-7.0 % Basophils (%) (Auto) 0.1 0.0-2.0 % Neutrophils # (Auto) 4.6 1.6-8.6 10 ^3/uL Lymphocytes # (Auto) 0.6 0.4-5.4 10 ^3/uL Monocytes # (Auto) 0.5 0-1.3 10 ^3/uL Eosinophils # (Auto) 0 0-0.8 10 ^3/uL Basophils # (Auto) 0 0-0.2 10 ^3/uL Nucleated Red Blood Cells 0.2 % Sodium Level 145 136-145 mmol/L Potassium Level 4.1 3.5-5.1 mmol/L Chloride Level 102 98-107 mmol/L Carbon Dioxide Level 34 H 20-31 mmol/L Anion Gap 9 5-15 Blood Urea Nitrogen 20 9-23 mg/dL Creatinine 0.79 0.550-1.02 mg/dL Glomerular Filtration Rate Calc 71 >90 mL/min BUN/Creatinine Ratio 25.3 H 10.0-20.0 Serum Glucose 338 H 74-106 mg/dL Calcium Level 9.6 8.7-10.4 mg/dL Total Bilirubin 0.2 0.2-1.0 mg/dL Aspartate Amino Transferase (AST) 16 13-40 U/L Alanine Aminotransferase (ALT) 13 7-40 U/L Alkaline Phosphatase 135 H 46-116 U/L Total Protein 6.2 5.7-8.2 g/dL Albumin 4.0 3.2-4.8 g/dL Hemoglobin A1c 8.3 H <5.7 % A1C D-Dimer, Quantitative 1.54 H 0.0-0.49 mg/L FEU Lactic Acid Level 1.5 0.4-2.0 mmol/L Troponin I High Sensitivity 18 </=34 ng/L B-Type Natriuretic Peptide 24.71 0-100 pg/mL Hepatitis B Surface Antigen Negative Negative Hepatitis C Antibody Negative Negative Test 09/30/24 23:23 09/30/24 22:45 Range/Units Urine Color Yellow Yellow Urine Clarity Turbid H Clear Urine pH 5.5 5.0-9.0 Urine Specific [place] 1.019 1.001-1.035 Urine Protein Trace H Negative Urine Ketones Negative Negative Urine Blood 2+ H Negative /uL Urine Nitrite Negative Negative Urine Bilirubin Negative Negative Urine Urobilinogen Normal Negative mg/dL Urine Leukocyte Esterase Trace Negative /uL Urine RBC 28 0 - 4 /hpf Urine Microscopic WBC 9 H 0-5 /HPF Urine Squamous Epithelial Cells Mod <5 /hpf Urine Bacteria Few H None Seen /hpf Urine Hyaline Casts Few 0 - 2 /lpf Urine Glucose Normal Normal mg/dL Lipase 39 12-53 U/L Microbiology Date/Time Source Procedure Growth Status 10/01/24 12:07 Voided Urine Urine Culture - Final Complete 10/01/24 06:40 Nose MRSA Screen - Final Methicillin Resistant S.aureus Complete 10/01/24 00:34 Blood Blood Culture - Final Complete Problems(with codes): (1) Dementia (2) DNR (do not resuscitate) (3) Acute lower extremity ischemia (4) Pancytopenia (5) Sinusitis (6) Weakness (7) Altered mental status (8) Hypertension (9) Right lower lobe pneumonia (10) DVT of right axillary vein, acute (11) DVT of right axillary vein, acute (12) Urinary tract infection (13) Acute respiratory distress (14) Generalized weakness (15) Atelectasis of both lungs (16) On mechanically assisted ventilation (17) Seizure disorder (18) Acute hypoxemic respiratory failure (19) Metabolic encephalopathy (20) Acute respiratory failure with hypoxia (21) Non-ST elevation myocardial infarction (NSTEMI) (22) UTI (urinary tract infection) (23) Thrombocytopenia (24) Anemia (25) Diabetes mellitus, type 2 (26) Metabolic acidosis (27) Hyperglycemia (28) Hypertensive urgency (29) Vitiligo (30) Chronic pain of both knees (31) Depression (32) Hypokalemia Plan/Recommendation ASSESSMENT: Patient is a 89-year-old seen on the floor for bilateral foot xerosis PLAN: - The patients chart was reviewed, clinical findings were discussed with the patient, the etiologies of the conditions were discussed in detail, and a treatment plan was agreed to at this time, with both oral and written instructions provided. - reviewed advanced imaging - recommend that patient establishes outpatient routine foot care - patient would benefit from nail debridement - significant dryness and flakiness on the bottom would benefit from ointment - no surgical intervention recommended at this point All questions were answered and concerns addressed to the patient's satisfaction. The patient was given the phone number to the clinic and was told how to make contact with the clinic should any concerns or questions arise. Patient understands that if any questions or concerns arise prior to the next appointment, we should be contacted immediately. FOLLOW-UP: Continue to follow while inpatient Plan discussed with: Patient Date of Service: October 04, 2024 Billing Provider: KRYSTINA FONTAINE DPM Common Visit Codes: CONSULT ONLY Consultation Codes: [id number] CONSULT <80MIN KRYSTINA FONTAINE DPM October 04, 2024 14:41
--- NOTE | 2024-10-04 20:25 | DVHPN2 ---
Progress Note - Dictate Date Seen: October 04, 2024 Medical Necessity Reason Pt with a Central, PICC or Fol: No vital signs Vital Sign Date Time Temp Pulse Resp B/P (MAP) Pulse Ox O2 Delivery O2 Flow Rate FiO2 10/04/24 19:34 86 18 100 10/04/24 19:28 Nasal Cannula* 2 10/04/24 16:47 98.0 152/76 (101) 98.0 Total Intake and Output 10/03/24 10/03/24 10/04/24 15:00 23:00 07:00 Intake Total 50 ml 850 ml 100 ml Output Total 700 ml 550 ml Balance 50 ml 150 ml -450 ml medications Current Medications Medications Dose Ordered Sig/Itzel Route Start Time Stop Time Status Last Admin Dose Admin Amlodipine Besylate 5 mg DAILY PO 10/01/24 10:00 10/04/24 11:14 5 MG Atorvastatin Calcium 10 mg HS PO 10/01/24 22:00 10/03/24 21:29 10 MG Famotidine 20 mg DAILY IV 10/01/24 10:00 10/04/24 11:14 20 MG Metoprolol Tartrate 12.5 mg BID PO 10/01/24 10:00 10/04/24 11:14 12.5 MG Donepezil HCl 5 mg HS PO 10/01/24 22:00 10/03/24 21:30 5 MG Ceftriaxone Sodium 50 ml @ 100 mls/hr DAILY@09 IV 10/01/24 09:00 10/04/24 11:15 100 MLS/HR Apixaban 2.5 mg BID PO 10/01/24 10:00 10/04/24 11:15 2.5 MG Sodium Chloride 10 ml Q8HR IV 10/01/24 06:00 10/04/24 13:14 10 ML Acetaminophen/ Hydrocodone Bitart 1 tab Q4HP PRN PO 10/01/24 02:15 10/03/24 12:39 1 TAB Ondansetron HCl 4 mg Q4HP PRN IV 10/01/24 02:15 Docusate Sodium 100 mg BIDPRN PRN PO 10/01/24 02:15 Acetaminophen 650 mg Q6HP PRN PO 10/01/24 02:15 Nitroglycerin 0.4 mg Q5MINP PRN SL 10/01/24 02:15 Morphine Sulfate 2 mg Q30M PRN IV 10/01/24 02:15 Albuterol 2.5 mg Q6HR NEB 10/01/24 12:00 10/04/24 19:27 2.5 MG Albuterol 2.5 mg Q3HPRN PRN NEB 10/01/24 11:15 Ipratropium [place] 0.5 mg Q6HR NEB 10/01/24 12:00 10/04/24 19:27 0.5 MG Lactulose 30 ml DAILY PRN PO 10/01/24 11:15 Mupirocin 1 applic BID EACHNOSTRI 10/01/24 22:00 10/06/24 21:59 10/04/24 10:00 1 APPLIC Azithromycin 250 ml @ 125 mls/hr DAILY@1400 IV 10/02/24 14:00 10/04/24 13:14 125 MLS/HR Methylprednisolone Sodium Succinate 40 mg DAILY IV 10/03/24 10:00 10/04/24 11:14 40 MG Allopurinol 100 mg DAILY PO 10/02/24 15:04 10/04/24 11:15 100 MG Levetiracetam 1,000 mg BID PO 10/02/24 22:00 10/04/24 11:15 1,000 MG Diagnostic Test (Pha) 1 strip IQ4HR 10/03/24 00:00 10/04/24 16:00 1 STRIP Insulin Human Regular IQ4HR SC 10/03/24 00:00 10/04/24 16:58 8 UNITS Dextrose 50 ml UD PRN IV 10/02/24 22:00 laboratory and microbiology Laboratory Tests 10/03/24 05:01 Test 10/03/24 05:01 Range/Units Serum Glucose 338 H 74-106 mg/dL Assessment/Plan Impression Acute hypoxemic respiratory failure Pneumonia Atelectasis Dementia Patient seen and examined Events Low oxygen requirements On 2 liters nasal cannula No distress Labs and imaging reviewed Management Supplemental oxygen Titrate to maintain sats 90% or above Incentive spirometry Continue antibiotics F/u cultures Bronchodilators Monitor renal function Monitor electrolytes Supplement as needed DVT prophylaxis Dietary Evaluation Review Comments: Monitor pO intake to meet 75% of her needs Expected Outcomes/Goals: gradual wt loss, controlled DM. Plan discussed with: Patient JOVAN RON MD October 04, 2024 20:25
[2024-10-05] VITALS (12 sets, daily range): BP systolic 147–169; BP diastolic 62–87; PULSE 71–91; RESP 16–36; TEMP 97.8–98.7; O2SAT 92–99
[2024-10-05] MEDS: ACCU-CHEK COMFORT CURVE STRIP VI SCH (04:00)
[2024-10-05] MEDS: InsuLIN REG 1unit/0.01ml Soln (100units/ml) SC SCH (04:39)
--- NOTE | 2024-10-05 08:05 | DVHPN2 ---
Reviewed: Care Plan, H&P, Labs, Medications, Previous Orders, Radiology Changes from previous H/P or p: No Changes Objective Vitals Vital Signs Date Time Temp Pulse Resp B/P (MAP) Pulse Ox O2 Delivery O2 Flow Rate FiO2 10/05/24 06:51 87 20 163/79 (107) 10/05/24 01:00 98.0 92 98.0 10/04/24 20:00 Nasal Cannula* 2 28 Intake/Output Intake and Output 10/05/24 07:00 Intake Total 710 ml Output Total 2300 ml Balance -1590 ml Intake Oral 410 ml IV Total 300 ml Output Urine Total 2300 ml # Bowel Movements 3 General Appearance: Alert, Cooperative, No acute distress, Other HEENT: Atraumatic Lungs: Other Cardiovascular: Regular rate Abdomen: Soft, No tenderness Extremities: Other Medications Current Medications Medications Dose Ordered Sig/Itzel Route Start Time Stop Time Status Last Admin Dose Admin Amlodipine Besylate 5 mg DAILY PO 10/01/24 10:00 10/04/24 11:14 5 MG Atorvastatin Calcium 10 mg HS PO 10/01/24 22:00 10/04/24 22:11 10 MG Famotidine 20 mg DAILY IV 10/01/24 10:00 10/04/24 11:14 20 MG Metoprolol Tartrate 12.5 mg BID PO 10/01/24 10:00 10/04/24 22:12 12.5 MG Donepezil HCl 5 mg HS PO 10/01/24 22:00 10/04/24 22:11 5 MG Ceftriaxone Sodium 50 ml @ 100 mls/hr DAILY@09 IV 10/01/24 09:00 10/04/24 11:15 100 MLS/HR Apixaban 2.5 mg BID PO 10/01/24 10:00 10/04/24 22:11 2.5 MG Sodium Chloride 10 ml Q8HR IV 10/01/24 06:00 10/05/24 05:35 10 ML Acetaminophen/ Hydrocodone Bitart 1 tab Q4HP PRN PO 10/01/24 02:15 10/03/24 12:39 1 TAB Ondansetron HCl 4 mg Q4HP PRN IV 10/01/24 02:15 Docusate Sodium 100 mg BIDPRN PRN PO 10/01/24 02:15 Acetaminophen 650 mg Q6HP PRN PO 10/01/24 02:15 Nitroglycerin 0.4 mg Q5MINP PRN SL 10/01/24 02:15 Morphine Sulfate 2 mg Q30M PRN IV 10/01/24 02:15 Albuterol 2.5 mg Q6HR NEB 10/01/24 12:00 10/05/24 07:31 2.5 MG Albuterol 2.5 mg Q3HPRN PRN NEB 10/01/24 11:15 Ipratropium [place] 0.5 mg Q6HR NEB 10/01/24 12:00 10/05/24 07:31 0.5 MG Lactulose 30 ml DAILY PRN PO 10/01/24 11:15 Mupirocin 1 applic BID EACHNOSTRI 10/01/24 22:00 10/06/24 21:59 10/04/24 22:10 1 APPLIC Azithromycin 250 ml @ 125 mls/hr DAILY@1400 IV 10/02/24 14:00 10/04/24 13:14 125 MLS/HR Methylprednisolone Sodium Succinate 40 mg DAILY IV 10/03/24 10:00 10/04/24 11:14 40 MG Allopurinol 100 mg DAILY PO 10/02/24 15:04 10/04/24 11:15 100 MG Levetiracetam 1,000 mg BID PO 10/02/24 22:00 10/04/24 22:12 1,000 MG Dextrose 50 ml UD PRN IV 10/02/24 22:00 Diagnostic Test (Pha) 1 strip IQ4HR 10/05/24 04:00 10/05/24 07:58 1 STRIP Insulin Human Regular IQ4HR SC 10/05/24 04:00 10/05/24 08:01 12 UNITS Laboratory Results Laboratory Tests 10/03/24 05:01 Urinalysis Test 09/30/24 23:23 Urine Color Yellow (Yellow) Urine Clarity Turbid (Clear) H Urine pH 5.5 (5.0-9.0) Urine Specific [place] 1.019 (1.001-1.035) Urine Protein Trace (Negative) H Urine Ketones Negative (Negative) Urine Blood 2+ /uL (Negative) H Urine Nitrite Negative (Negative) Urine Bilirubin Negative (Negative) Urine Urobilinogen Normal mg/dL (Negative) Urine Leukocyte Esterase Trace /uL (Negative) Urine RBC 28 /hpf (0 - 4) Urine Microscopic WBC 9 /HPF (0-5) H Urine Squamous Epithelial Cells Mod /hpf (<5) Urine Bacteria Few /hpf (None Seen) H Urine Hyaline Casts Few /lpf (0 - 2) Urine Glucose Normal mg/dL (Normal) Microbiology Microbiology Date/Time Source Procedure Growth Status 10/01/24 12:07 Voided Urine Urine Culture - Final Complete 10/01/24 06:40 Nose MRSA Screen - Final Methicillin Resistant S.aureus Complete 10/01/24 00:34 Blood Blood Culture - Final Complete Labs and/or images reviewed: Labs reviewed by me, Image(s) reviewed by me Assessment/Plan Assessment/Plan Acute hypoxic respiratory failure: Oxygen by nasal cannula consult for Dr. Yeboah Complete opacification of the left lung: No pleural effusion by ultrasound of the chest Acute left lower lobe pneumonia Rocephin azithromycin Solu-Medrol Acute COPD exacerbation med neb Elevated D-dimer: DVT ruled out PE could not be ruled out because of lack of IV contrast, we will order V/Q scan Acute diastolic heart failure Dementia Diabetes Hypertension Depression Seizures Pancytopenia UTI History of CVA MRSA screen positive: Bactroban nasal ointment Blood cultures pending Time spent 70 minutes Advanced care planning time 20 minutes Daughter Raymond [phone] at bedside Patient is full code Patient has been in the [facility] for the last three years after a massive stroke Plan discussed with: Patient Date of Service: October 05, 2024 Billing Provider: MARCELL QUISPE MD Common Visit Codes: [id number] INP/OBS CARE(HIGH) MARCELL QUISPE MD October 05, 2024 08:05
[2024-10-05] MEDS ORDERED: cloNIDine HCL 0.1 MG TAB PO PRN (13:45)
--- NOTE | 2024-10-05 15:11 | DVH ---
EXAM: NM NM VQ SCAN HISTORY: PULMONARY EMBOLISM COMPARISON: None TECHNIQUE: 6.1 mCi of Tc99m MAA were utilized for the perfusion portion of the study. FINDINGS: Ventilation and perfusion images show homogeneous uptake of the radiotracer in both lungs without sandra tilation or perfusion defects. Decreased perfusion left lung field consistent with chest x-ray 2024 IMPRESSION: 1. Matched defect on left comparison to chest x-ray. 2. Low probability of pulmonary embolus
--- NOTE | 2024-10-05 18:20 | DVHPN2 ---
Progress Note - Dictate Date Seen: October 05, 2024 Medical Necessity Reason Pt with a Central, PICC or Fol: No vital signs Vital Sign Date Time Temp Pulse Resp B/P (MAP) Pulse Ox O2 Delivery O2 Flow Rate FiO2 10/05/24 17:00 98.0 76 20 151/83 (105) 98 98.0 10/05/24 11:43 Nasal Cannula 2.0 10/05/24 11:43 28 Total Intake and Output 10/04/24 10/04/24 10/05/24 15:00 23:00 07:00 Intake Total 50 ml 450 ml 210 ml Output Total 850 ml 1450 ml Balance 50 ml -400 ml -1240 ml medications Current Medications Medications Dose Ordered Sig/Itezl Route Start Time Stop Time Status Last Admin Dose Admin Amlodipine Besylate 5 mg DAILY PO 10/01/24 10:00 10/05/24 10:05 5 MG Atorvastatin Calcium 10 mg HS PO 10/01/24 22:00 10/04/24 22:11 10 MG Famotidine 20 mg DAILY IV 10/01/24 10:00 10/05/24 10:04 20 MG Metoprolol Tartrate 12.5 mg BID PO 10/01/24 10:00 10/05/24 10:05 12.5 MG Donepezil HCl 5 mg HS PO 10/01/24 22:00 10/04/24 22:11 5 MG Ceftriaxone Sodium 50 ml @ 100 mls/hr DAILY@09 IV 10/01/24 09:00 10/05/24 10:05 100 MLS/HR Apixaban 2.5 mg BID PO 10/01/24 10:00 10/05/24 10:04 2.5 MG Sodium Chloride 10 ml Q8HR IV 10/01/24 06:00 10/05/24 14:21 10 ML Acetaminophen/ Hydrocodone Bitart 1 tab Q4HP PRN PO 10/01/24 02:15 10/03/24 12:39 1 TAB Ondansetron HCl 4 mg Q4HP PRN IV 10/01/24 02:15 Docusate Sodium 100 mg BIDPRN PRN PO 10/01/24 02:15 Acetaminophen 650 mg Q6HP PRN PO 10/01/24 02:15 Nitroglycerin 0.4 mg Q5MINP PRN SL 10/01/24 02:15 Morphine Sulfate 2 mg Q30M PRN IV 10/01/24 02:15 Albuterol 2.5 mg Q6HR NEB 10/01/24 12:00 10/05/24 11:42 2.5 MG Albuterol 2.5 mg Q3HPRN PRN NEB 10/01/24 11:15 Ipratropium [place] 0.5 mg Q6HR NEB 10/01/24 12:00 10/05/24 11:43 0.5 MG Lactulose 30 ml DAILY PRN PO 10/01/24 11:15 Mupirocin 1 applic BID EACHNOSTRI 10/01/24 22:00 10/06/24 21:59 10/05/24 10:06 1 APPLIC Azithromycin 250 ml @ 125 mls/hr DAILY@1400 IV 10/02/24 14:00 10/05/24 14:21 125 MLS/HR Methylprednisolone Sodium Succinate 40 mg DAILY IV 10/03/24 10:00 10/05/24 10:04 40 MG Allopurinol 100 mg DAILY PO 10/02/24 15:04 10/05/24 10:04 100 MG Levetiracetam 1,000 mg BID PO 10/02/24 22:00 10/05/24 10:05 1,000 MG Dextrose 50 ml UD PRN IV 10/02/24 22:00 Diagnostic Test (Pha) 1 strip IQ4HR 10/05/24 04:00 10/05/24 16:37 1 STRIP Insulin Human Regular IQ4HR SC 10/05/24 04:00 10/05/24 16:38 8 UNITS Clonidine HCl 0.2 mg Q6HP PRN PO 10/05/24 13:45 laboratory and microbiology Laboratory Tests 10/03/24 05:01 Test 10/03/24 05:01 Range/Units Serum Glucose 338 H 74-106 mg/dL Assessment/Plan Impression Acute hypoxemic respiratory failure Pneumonia Atelectasis Dementia Patient seen and examined Events Low oxygen requirements On 2 liters nasal cannula Appears confused No acute events Labs and imaging reviewed Management Supplemental oxygen Titrate to maintain sats 90% or above Incentive spirometry Continue antibiotics F/u cultures Bronchodilators Monitor renal function Monitor electrolytes Supplement as needed DVT prophylaxis Dietary Evaluation Review Comments: Monitor pO intake to meet 75% of her needs Expected Outcomes/Goals: gradual wt loss, controlled DM. Plan discussed with: Patient JOVAN RON MD October 05, 2024 18:20
[2024-10-06] VITALS (18 sets, daily range): BP systolic 140–156; BP diastolic 51–94; PULSE 64–88; RESP 12–20; TEMP 97.4–98.4; O2SAT 91–100
--- NOTE | 2024-10-06 08:23 | DVHPN2 ---
Reviewed: Care Plan, H&P, Labs, Medications, Previous Orders, Radiology Changes from previous H/P or p: No Changes Objective Vitals Vital Signs Date Time Temp Pulse Resp B/P (MAP) Pulse Ox O2 Delivery O2 Flow Rate FiO2 10/06/24 06:43 64 19 98 10/06/24 06:37 Nasal Cannula 2.0 10/06/24 06:37 28 10/06/24 05:00 97.4 154/88 (110) 97.4 Intake/Output Intake and Output 10/06/24 07:00 Intake Total 648 ml Output Total 500 ml Balance 148 ml Intake Oral 348 ml IV Total 300 ml Output Urine Total 500 ml # Voids 1 General Appearance: Alert, Cooperative, No acute distress, Other HEENT: Atraumatic Lungs: Other Cardiovascular: Regular rate Abdomen: Soft, No tenderness Extremities: Other Medications Current Medications Medications Dose Ordered Sig/Itzel Route Start Time Stop Time Status Last Admin Dose Admin Amlodipine Besylate 5 mg DAILY PO 10/01/24 10:00 10/05/24 10:05 5 MG Atorvastatin Calcium 10 mg HS PO 10/01/24 22:00 10/05/24 22:00 10 MG Famotidine 20 mg DAILY IV 10/01/24 10:00 10/05/24 10:04 20 MG Metoprolol Tartrate 12.5 mg BID PO 10/01/24 10:00 10/05/24 22:00 12.5 MG Donepezil HCl 5 mg HS PO 10/01/24 22:00 10/05/24 21:59 5 MG Ceftriaxone Sodium 50 ml @ 100 mls/hr DAILY@09 IV 10/01/24 09:00 10/05/24 10:05 100 MLS/HR Apixaban 2.5 mg BID PO 10/01/24 10:00 10/05/24 21:59 2.5 MG Sodium Chloride 10 ml Q8HR IV 10/01/24 06:00 10/06/24 05:39 10 ML Acetaminophen/ Hydrocodone Bitart 1 tab Q4HP PRN PO 10/01/24 02:15 10/03/24 12:39 1 TAB Ondansetron HCl 4 mg Q4HP PRN IV 10/01/24 02:15 Docusate Sodium 100 mg BIDPRN PRN PO 10/01/24 02:15 Acetaminophen 650 mg Q6HP PRN PO 10/01/24 02:15 Nitroglycerin 0.4 mg Q5MINP PRN SL 10/01/24 02:15 Morphine Sulfate 2 mg Q30M PRN IV 10/01/24 02:15 Albuterol 2.5 mg Q6HR NEB 10/01/24 12:00 10/06/24 06:37 2.5 MG Albuterol 2.5 mg Q3HPRN PRN NEB 10/01/24 11:15 Ipratropium [place] 0.5 mg Q6HR NEB 10/01/24 12:00 10/06/24 06:37 0.5 MG Lactulose 30 ml DAILY PRN PO 10/01/24 11:15 Mupirocin 1 applic BID EACHNOSTRI 10/01/24 22:00 10/06/24 21:59 10/05/24 21:58 1 APPLIC Azithromycin 250 ml @ 125 mls/hr DAILY@1400 IV 10/02/24 14:00 10/05/24 14:21 125 MLS/HR Methylprednisolone Sodium Succinate 40 mg DAILY IV 10/03/24 10:00 10/05/24 10:04 40 MG Allopurinol 100 mg DAILY PO 10/02/24 15:04 10/05/24 10:04 100 MG Levetiracetam 1,000 mg BID PO 10/02/24 22:00 10/05/24 21:59 1,000 MG Dextrose 50 ml UD PRN IV 10/02/24 22:00 Diagnostic Test (Pha) 1 strip IQ4HR 10/05/24 04:00 10/06/24 04:18 1 STRIP Insulin Human Regular IQ4HR SC 10/05/24 04:00 10/06/24 04:18 8 UNITS Clonidine HCl 0.2 mg Q6HP PRN PO 10/05/24 13:45 Laboratory Results Laboratory Tests 10/03/24 05:01 Urinalysis Test 09/30/24 23:23 Urine Color Yellow (Yellow) Urine Clarity Turbid (Clear) H Urine pH 5.5 (5.0-9.0) Urine Specific [place] 1.019 (1.001-1.035) Urine Protein Trace (Negative) H Urine Ketones Negative (Negative) Urine Blood 2+ /uL (Negative) H Urine Nitrite Negative (Negative) Urine Bilirubin Negative (Negative) Urine Urobilinogen Normal mg/dL (Negative) Urine Leukocyte Esterase Trace /uL (Negative) Urine RBC 28 /hpf (0 - 4) Urine Microscopic WBC 9 /HPF (0-5) H Urine Squamous Epithelial Cells Mod /hpf (<5) Urine Bacteria Few /hpf (None Seen) H Urine Hyaline Casts Few /lpf (0 - 2) Urine Glucose Normal mg/dL (Normal) Microbiology Microbiology Date/Time Source Procedure Growth Status 10/01/24 12:07 Voided Urine Urine Culture - Final Complete 10/01/24 06:40 Nose MRSA Screen - Final Methicillin Resistant S.aureus Complete 10/01/24 00:34 Blood Blood Culture - Preliminary Resulted Labs and/or images reviewed: Labs reviewed by me, Image(s) reviewed by me Assessment/Plan Assessment/Plan Acute hypoxic respiratory failure: Oxygen by nasal cannula consult for Dr. Yeboah Complete opacification of the left lung: No pleural effusion by ultrasound of the chest Acute left lower lobe pneumonia Rocephin azithromycin Solu-Medrol Acute COPD exacerbation med neb Elevated D-dimer: DVT ruled out PE ruled out Acute diastolic heart failure Dementia Diabetes Hypertension Depression Seizures Pancytopenia UTI History of CVA MRSA screen positive: Bactroban nasal ointment Blood cultures negative Urine cultures negative Time spent 50 minutes Advanced care planning time 20 minutes Daughter Raymond [phone] at bedside Patient is full code Patient has been in the [facility] for the last three years after a massive stroke Plan discussed with: Patient My Orders Orders - MARCELL QUISPE MD Procedure Category Date Status Time Clonidine Hcl Tablet PHA 10/05/24 In Process (Catapres Tablet) 13:45 Date of Service: October 06, 2024 Billing Provider: MARCELL QUISPE MD Common Visit Codes: [id number] INP/OBS CARE(HIGH) MARCELL QUISPE MD October 06, 2024 08:23
--- NOTE | 2024-10-06 08:31 | DVHDS2 ---
Discharge Summary Date of Admission October 01, 2024 at 02:01 Date of Discharge: October 06, 2024 Admitting Diagnosis Shortness of breath Wounds: None Labs/Diagnostic Data: Laboratory Results Test 10/06/24 07:58 10/03/24 05:01 10/02/24 10:27 10/01/24 00:31 POC Glucose 186 mg/dl (70-106) White Blood Count 5.8 10^3/uL (4.4-10.8) Red Blood Count 4.34 10^6/uL (4.0-5.20) Hemoglobin 10.6 g/dL (12.2-16.2) Hematocrit 33.3 % (36.0-46.0) Mean Corpuscular Volume 76.7 fL (80.0-100.0) Mean Corpuscular Hemoglobin 24.4 pg (28.0-32.0) Mean Corpuscular Hemoglobin Concent 31.8 g/dL (32.0-36.0) Red Cell Distribution Width 14.5 % (11.8-14.3) Platelet Count 111 10^3/uL (140-450) Mean Platelet Volume 9.8 fL (6.9-10.8) Neutrophils (%) (Auto) 80.0 % (37.0-80.0) Lymphocytes (%) (Auto) 10.8 % (10.0-50.0) Monocytes (%) (Auto) 9.1 % (0.0-12.0) Eosinophils (%) (Auto) 0.0 % (0.0-7.0) Basophils (%) (Auto) 0.1 % (0.0-2.0) Neutrophils # (Auto) 4.6 10 ^3/uL (1.6-8.6) Lymphocytes # (Auto) 0.6 10 ^3/uL (0.4-5.4) Monocytes # (Auto) 0.5 10 ^3/uL (0-1.3) Eosinophils # (Auto) 0 10 ^3/uL (0-0.8) Basophils # (Auto) 0 10 ^3/uL (0-0.2) Nucleated Red Blood Cells 0.2 % Sodium Level 145 mmol/L (136-145) Potassium Level 4.1 mmol/L (3.5-5.1) Chloride Level 102 mmol/L (98-107) Carbon Dioxide Level 34 mmol/L (20-31) Anion Gap 9 (5-15) Blood Urea Nitrogen 20 mg/dL (9-23) Creatinine 0.79 mg/dL (0.550-1.02) Glomerular Filtration Rate Calc 71 mL/min (>90) BUN/Creatinine Ratio 25.3 (10.0-20.0) Serum Glucose 338 mg/dL (74-106) Calcium Level 9.6 mg/dL (8.7-10.4) Total Bilirubin 0.2 mg/dL (0.2-1.0) Aspartate Amino Transferase (AST) 16 U/L (13-40) Alanine Aminotransferase (ALT) 13 U/L (7-40) Alkaline Phosphatase 135 U/L (46-116) Total Protein 6.2 g/dL (5.7-8.2) Albumin 4.0 g/dL (3.2-4.8) Hemoglobin A1c 8.3 % A1C (<5.7) D-Dimer, Quantitative 1.54 mg/L FEU (0.0-0.49) Lactic Acid Level 1.5 mmol/L (0.4-2.0) Troponin I High Sensitivity 18 ng/L (</=34) B-Type Natriuretic Peptide 24.71 pg/mL (0-100) Hepatitis B Surface Antigen Negative (Negative) Hepatitis C Antibody Negative (Negative) Test 09/30/24 23:23 09/30/24 22:45 Urine Color Yellow (Yellow) Urine Clarity Turbid (Clear) Urine pH 5.5 (5.0-9.0) Urine Specific [place] 1.019 (1.001-1.035) Urine Protein Trace (Negative) Urine Ketones Negative (Negative) Urine Blood 2+ /uL (Negative) Urine Nitrite Negative (Negative) Urine Bilirubin Negative (Negative) Urine Urobilinogen Normal mg/dL (Negative) Urine Leukocyte Esterase Trace /uL (Negative) Urine RBC 28 /hpf (0 - 4) Urine Microscopic WBC 9 /HPF (0-5) Urine Squamous Epithelial Cells Mod /hpf (<5) Urine Bacteria Few /hpf (None Seen) Urine Hyaline Casts Few /lpf (0 - 2) Urine Glucose Normal mg/dL (Normal) Lipase 39 U/L (12-53) Other Laboratory Tests 10/03/24 05:01 Brief Hx & Hospital Course: 89-year-old female with multiple medical problems including diabetes hypertension dementia depression seizures history of CVA COPD came in for shortness of breaths found to have left lower lobe pneumonia treated with Rocephin azithromycin Solu-Medrol albuterol Atrovent. Chest x-ray showed complete opacification of the left lung. Chest ultrasound showed no pleural effusion D-dimer was elevated DVT ruled out PE ruled out patient has improved on on 2 L of oxygen at the time of discharge. Patient was under the care of at [facility] and being discharged back to the residential under his care General condition stable but poor at the time of discharge Consults/Reason for consult None Operations or Procedures CT chest V/Q scan CT chest angiogram Chest ultrasound Condition at Discharge: Fair Final Diagnosis/Problems List Acute hypoxic respiratory failure: Oxygen by nasal cannula consult for Dr. Yeboah Complete opacification of the left lung: No pleural effusion by ultrasound of the chest Acute left lower lobe pneumonia Rocephin azithromycin Solu-Medrol Acute COPD exacerbation med neb Elevated D-dimer: DVT ruled out PE ruled out Acute diastolic heart failure Dementia Diabetes Hypertension Depression Seizures Pancytopenia UTI History of CVA MRSA screen positive: Bactroban nasal ointment Blood cultures negative Urine cultures negative Discharge Disposition: Shelter Facility Discharge Instruct/Medications Diet: Cardiac 2g Na,low cholest Activity: Light activity Follow Up/Referral: Follow up with the residential Medications: see list Rocephin 1 g IV daily for 10 days Azithromycin 500 mg IV daily for 10 days 35 (Time taken for discharge summary 35 minutes) Discharge Statement: "Patient was advised to return to the ER or call 911 if any headaches, dizziness, shortness of breath, chest pain, abdominal pain, bleeding, fevers, or worsening of medical condition. Patient was counseled about treatment plan, medications, possible side effects, patientverbalized understanding. All questions were answered to the best of my ability. This discharge took greater then 30 minutes in planning, reviewing documentation, counseling the patient, and discussing with other team members." ASSESSMENT ASSESSMENT Hospital Course Marginal improvement Assessment Acute hypoxic respiratory failure: Oxygen by nasal cannula consult for Dr. Yeboah Complete opacification of the left lung: No pleural effusion by ultrasound of the chest Acute left lower lobe pneumonia Rocephin azithromycin Solu-Medrol Acute COPD exacerbation med neb Elevated D-dimer: DVT ruled out PE ruled out Acute diastolic heart failure Dementia Diabetes Hypertension Depression Seizures Pancytopenia UTI History of CVA MRSA screen positive: Bactroban nasal ointment Blood cultures negative Urine cultures negative Date of Service: October 06, 2024 Billing Provider: MARCELL QUISPE MD Common Visit Codes: [id number] INP/OBS CARE(HIGH), [id number]-TWF/[id number] DISCH DAY >30min MARCELL QUISPE MD October 06, 2024 08:31
--- NOTE | 2024-10-06 12:50 | DVHPN2 ---
Progress Note - Dictate Date Seen: October 06, 2024 Medical Necessity Reason Pt with a Central, PICC or Fol: No vital signs Vital Sign Date Time Temp Pulse Resp B/P (MAP) Pulse Ox O2 Delivery O2 Flow Rate FiO2 10/06/24 11:51 69 18 99 10/06/24 11:45 Nasal Cannula 2.0 10/06/24 11:45 28 10/06/24 10:33 156/92 10/06/24 09:00 98.4 98.4 Total Intake and Output 10/05/24 10/05/24 10/06/24 15:00 23:00 07:00 Intake Total 50 ml 368 ml 230 ml Output Total 500 ml Balance 50 ml 368 ml -270 ml medications Current Medications Medications Dose Ordered Sig/Itzel Route Start Time Stop Time Status Last Admin Dose Admin Amlodipine Besylate 5 mg DAILY PO 10/01/24 10:00 10/06/24 10:33 5 MG Atorvastatin Calcium 10 mg HS PO 10/01/24 22:00 10/05/24 22:00 10 MG Famotidine 20 mg DAILY IV 10/01/24 10:00 10/06/24 10:32 20 MG Metoprolol Tartrate 12.5 mg BID PO 10/01/24 10:00 10/06/24 10:33 12.5 MG Donepezil HCl 5 mg HS PO 10/01/24 22:00 10/05/24 21:59 5 MG Ceftriaxone Sodium 50 ml @ 100 mls/hr DAILY@09 IV 10/01/24 09:00 10/06/24 10:32 100 MLS/HR Apixaban 2.5 mg BID PO 10/01/24 10:00 10/06/24 10:33 2.5 MG Sodium Chloride 10 ml Q8HR IV 10/01/24 06:00 10/06/24 05:39 10 ML Acetaminophen/ Hydrocodone Bitart 1 tab Q4HP PRN PO 10/01/24 02:15 10/03/24 12:39 1 TAB Ondansetron HCl 4 mg Q4HP PRN IV 10/01/24 02:15 Docusate Sodium 100 mg BIDPRN PRN PO 10/01/24 02:15 Acetaminophen 650 mg Q6HP PRN PO 10/01/24 02:15 Nitroglycerin 0.4 mg Q5MINP PRN SL 10/01/24 02:15 Morphine Sulfate 2 mg Q30M PRN IV 10/01/24 02:15 Albuterol 2.5 mg Q6HR NEB 10/01/24 12:00 10/06/24 11:45 2.5 MG Albuterol 2.5 mg Q3HPRN PRN NEB 10/01/24 11:15 Ipratropium [place] 0.5 mg Q6HR NEB 10/01/24 12:00 10/06/24 11:45 0.5 MG Lactulose 30 ml DAILY PRN PO 10/01/24 11:15 Mupirocin 1 applic BID EACHNOSTRI 10/01/24 22:00 10/06/24 21:59 10/06/24 10:33 1 APPLIC Azithromycin 250 ml @ 125 mls/hr DAILY@1400 IV 10/02/24 14:00 10/05/24 14:21 125 MLS/HR Methylprednisolone Sodium Succinate 40 mg DAILY IV 10/03/24 10:00 10/06/24 10:32 40 MG Allopurinol 100 mg DAILY PO 10/02/24 15:04 10/06/24 10:33 100 MG Levetiracetam 1,000 mg BID PO 10/02/24 22:00 10/06/24 10:32 1,000 MG Dextrose 50 ml UD PRN IV 10/02/24 22:00 Diagnostic Test (Pha) 1 strip IQ4HR 10/05/24 04:00 10/06/24 12:23 1 STRIP Insulin Human Regular IQ4HR SC 10/05/24 04:00 10/06/24 12:42 4 UNITS Clonidine HCl 0.2 mg Q6HP PRN PO 10/05/24 13:45 laboratory and microbiology Laboratory Tests 10/03/24 05:01 Test 10/03/24 05:01 Range/Units Serum Glucose 338 H 74-106 mg/dL Assessment/Plan Impression Acute hypoxemic respiratory failure Pneumonia Atelectasis Dementia Patient seen and examined Events Low oxygen requirements On 2 liters nasal cannula Appears confused No acute events Labs and imaging reviewed Management Supplemental oxygen Titrate to maintain sats 90% or above Incentive spirometry Continue antibiotics F/u cultures Bronchodilators Monitor renal function Monitor electrolytes Supplement as needed DVT prophylaxis Dietary Evaluation Review Comments: Monitor pO intake to meet 75% of her needs Expected Outcomes/Goals: gradual wt loss, controlled DM. Plan discussed with: Other (rn) JOVAN RON MD October 06, 2024 12:50
[2024-10-06 15:59] LABS: COVID19 ANTIGEN SOFIA FIA NEGATIVE (NEGATIVE)
[2024-10-07] VITALS (10 sets, daily range): BP systolic 119–150; BP diastolic 61–75; PULSE 70–80; RESP 16–85; TEMP 97.4–98; O2SAT 94–100
--- NOTE | 2024-10-07 07:55 | DVHPN2 ---
Reviewed: Care Plan, H&P, Labs, Medications, Previous Orders, Radiology Changes from previous H/P or p: No Changes Objective Vitals Vital Signs Date Time Temp Pulse Resp B/P (MAP) Pulse Ox O2 Delivery O2 Flow Rate FiO2 10/07/24 07:13 71 18 100 10/07/24 07:10 Nasal Cannula* 3 32 10/07/24 05:00 97.9 138/75 (96) 97.9 Intake/Output Intake and Output 10/07/24 07:00 Intake Total 987 ml Output Total 1350 ml Balance -363 ml Intake Oral 687 ml IV Total 300 ml Output Urine Total 1350 ml General Appearance: Alert, Cooperative, No acute distress, Other HEENT: Atraumatic Lungs: Other Cardiovascular: Regular rate Abdomen: Soft, No tenderness Extremities: Other Medications Current Medications Medications Dose Ordered Sig/Itzel Route Start Time Stop Time Status Last Admin Dose Admin Amlodipine Besylate 5 mg DAILY PO 10/01/24 10:00 10/06/24 10:33 5 MG Atorvastatin Calcium 10 mg HS PO 10/01/24 22:00 10/06/24 21:57 10 MG Famotidine 20 mg DAILY IV 10/01/24 10:00 10/06/24 10:32 20 MG Metoprolol Tartrate 12.5 mg BID PO 10/01/24 10:00 10/06/24 21:56 12.5 MG Donepezil HCl 5 mg HS PO 10/01/24 22:00 10/06/24 21:57 5 MG Ceftriaxone Sodium 50 ml @ 100 mls/hr DAILY@09 IV 10/01/24 09:00 10/06/24 10:32 100 MLS/HR Apixaban 2.5 mg BID PO 10/01/24 10:00 10/06/24 21:57 2.5 MG Sodium Chloride 10 ml Q8HR IV 10/01/24 06:00 10/06/24 20:25 10 ML Acetaminophen/ Hydrocodone Bitart 1 tab Q4HP PRN PO 10/01/24 02:15 10/03/24 12:39 1 TAB Ondansetron HCl 4 mg Q4HP PRN IV 10/01/24 02:15 Docusate Sodium 100 mg BIDPRN PRN PO 10/01/24 02:15 Acetaminophen 650 mg Q6HP PRN PO 10/01/24 02:15 Nitroglycerin 0.4 mg Q5MINP PRN SL 10/01/24 02:15 Morphine Sulfate 2 mg Q30M PRN IV 10/01/24 02:15 Albuterol 2.5 mg Q6HR NEB 10/01/24 12:00 10/07/24 07:08 2.5 MG Albuterol 2.5 mg Q3HPRN PRN NEB 10/01/24 11:15 Ipratropium [place] 0.5 mg Q6HR NEB 10/01/24 12:00 10/07/24 07:08 0.5 MG Lactulose 30 ml DAILY PRN PO 10/01/24 11:15 Azithromycin 250 ml @ 125 mls/hr DAILY@1400 IV 10/02/24 14:00 10/06/24 14:24 125 MLS/HR Methylprednisolone Sodium Succinate 40 mg DAILY IV 10/03/24 10:00 10/06/24 10:32 40 MG Allopurinol 100 mg DAILY PO 10/02/24 15:04 10/06/24 10:33 100 MG Levetiracetam 1,000 mg BID PO 10/02/24 22:00 10/06/24 21:57 1,000 MG Dextrose 50 ml UD PRN IV 10/02/24 22:00 Diagnostic Test (Pha) 1 strip IQ4HR 10/05/24 04:00 10/07/24 04:00 1 STRIP Insulin Human Regular IQ4HR SC 10/05/24 04:00 10/07/24 04:41 8 UNITS Clonidine HCl 0.2 mg Q6HP PRN PO 10/05/24 13:45 Laboratory Results Laboratory Tests 10/03/24 05:01 Urinalysis Test 09/30/24 23:23 Urine Color Yellow (Yellow) Urine Clarity Turbid (Clear) H Urine pH 5.5 (5.0-9.0) Urine Specific [place] 1.019 (1.001-1.035) Urine Protein Trace (Negative) H Urine Ketones Negative (Negative) Urine Blood 2+ /uL (Negative) H Urine Nitrite Negative (Negative) Urine Bilirubin Negative (Negative) Urine Urobilinogen Normal mg/dL (Negative) Urine Leukocyte Esterase Trace /uL (Negative) Urine RBC 28 /hpf (0 - 4) Urine Microscopic WBC 9 /HPF (0-5) H Urine Squamous Epithelial Cells Mod /hpf (<5) Urine Bacteria Few /hpf (None Seen) H Urine Hyaline Casts Few /lpf (0 - 2) Urine Glucose Normal mg/dL (Normal) Microbiology Microbiology Date/Time Source Procedure Growth Status 10/01/24 12:07 Voided Urine Urine Culture - Final Complete 10/01/24 06:40 Nose MRSA Screen - Final Methicillin Resistant S.aureus Complete 10/01/24 00:34 Blood Blood Culture - Preliminary Resulted Labs and/or images reviewed: Labs reviewed by me, Image(s) reviewed by me Assessment/Plan Assessment/Plan Acute hypoxic respiratory failure: Oxygen by nasal cannula consult for Dr. Yeboah Complete opacification of the left lung: No pleural effusion by ultrasound of the chest Acute left lower lobe pneumonia Rocephin azithromycin Solu-Medrol Acute COPD exacerbation med neb Elevated D-dimer: DVT ruled out PE ruled out Acute diastolic heart failure Dementia Diabetes Hypertension Depression Seizures Pancytopenia UTI History of CVA MRSA screen positive: Bactroban nasal ointment Blood cultures negative Urine cultures negative Patient was discharged back to [facility] under the care of on 10-06-24 Awaiting authorization from [facility] Plan discussed with: Patient My Orders Orders - MARCELL QUISPE MD Procedure Category Date Status Time Communication Order ORDERS 10/06/24 Transmitted 08:23 * 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
[2024-10-07 11:31] LABS: Basophils # (auto) 0 10 ^3/uL (0-0.2); Eosinophils # (auto) 0 10 ^3/uL (0-0.8); Neutrophils # (auto) 5.6 10 ^3/uL (1.6-8.6); Platelet Count (auto) 167 10^3/uL (140-450)
[2024-10-07 11:33] LABS: Eosinophils % (auto) 0.2 % (0.0-7.0); Hematocrit 36.7 % (36.0-46.0); Hemoglobin 11.8 g/dL (12.2-16.2); Lymphocytes % (auto) 13.6 % (10.0-50.0); Mean Corpuscular Hemoglobin 24.6 pg (28.0-32.0); Mean Corpuscular Hgb Conc. 32.1 g/dL (32.0-36.0); Mean Corpuscular Volume 76.5 fL (80.0-100.0); Monocytes # (auto) 0.5 10 ^3/uL (0-1.3); Monocytes % (auto) 7.3 % (0.0-12.0); Neutrophils % (auto) 78.9 % (37.0-80.0); Nucleated Red Blood Cells % 0.2 %; Red Cell Distribution Width 15.1 % (11.8-14.3); White Blood Cell 7.1 10^3/uL (4.4-10.8)
[2024-10-07 11:44] LABS: Alanine Aminotransferase 14 U/L (7-40); Albumin 3.9 g/dL (3.2-4.8); Anion Gap 7 (5-15); BUN/Creatinine Ratio 31.1 (10.0-20.0); Bilirubin, Total 0.4 mg/dL (0.2-1.0); Blood Urea Nitrogen 19 mg/dL (9-23); Calcium 9.6 mg/dL (8.7-10.4); Chloride 101 mmol/L (98-107); Potassium 4.4 mmol/L (3.5-5.1); Sodium 142 mmol/L (136-145); Total Protein 6.2 g/dL (5.7-8.2)
[2024-10-07 11:52] LABS: Alkaline Phosphatase 117 U/L (46-116); Aspartate Aminotransferase 12 U/L (13-40); Carbon Dioxide 34 mmol/L (20-31); Glucose 131 mg/dL (74-106)
--- NOTE | 2024-10-07 15:13 | DVHPN2 ---
Progress Note - Dictate Date Seen: October 07, 2024 Medical Necessity Reason Pt with a Central, PICC or Fol: No vital signs Vital Sign Date Time Temp Pulse Resp B/P (MAP) Pulse Ox O2 Delivery O2 Flow Rate FiO2 10/07/24 13:57 80 85 119/65 99 3.0 32 10/07/24 13:00 97.9 97.9 10/07/24 12:34 Nasal Cannula Total Intake and Output 10/06/24 10/06/24 10/07/24 13:00 21:00 05:00 Intake Total 50 ml 717 ml 220 ml Output Total 850 ml 500 ml Balance 50 ml -133 ml -280 ml medications Current Medications Medications Dose Ordered Sig/Itzel Route Start Time Stop Time Status Last Admin Dose Admin Amlodipine Besylate 5 mg DAILY PO 10/01/24 10:00 10/07/24 09:19 5 MG Atorvastatin Calcium 10 mg HS PO 10/01/24 22:00 10/06/24 21:57 10 MG Famotidine 20 mg DAILY IV 10/01/24 10:00 10/07/24 09:18 20 MG Metoprolol Tartrate 12.5 mg BID PO 10/01/24 10:00 10/07/24 09:20 12.5 MG Donepezil HCl 5 mg HS PO 10/01/24 22:00 10/06/24 21:57 5 MG Ceftriaxone Sodium 50 ml @ 100 mls/hr DAILY@09 IV 10/01/24 09:00 10/07/24 09:18 100 MLS/HR Apixaban 2.5 mg BID PO 10/01/24 10:00 10/07/24 09:19 2.5 MG Sodium Chloride 10 ml Q8HR IV 10/01/24 06:00 10/07/24 13:09 10 ML Acetaminophen/ Hydrocodone Bitart 1 tab Q4HP PRN PO 10/01/24 02:15 10/03/24 12:39 1 TAB Ondansetron HCl 4 mg Q4HP PRN IV 10/01/24 02:15 Docusate Sodium 100 mg BIDPRN PRN PO 10/01/24 02:15 Acetaminophen 650 mg Q6HP PRN PO 10/01/24 02:15 Nitroglycerin 0.4 mg Q5MINP PRN SL 10/01/24 02:15 Morphine Sulfate 2 mg Q30M PRN IV 10/01/24 02:15 Albuterol 2.5 mg Q6HR NEB 10/01/24 12:00 10/07/24 12:33 2.5 MG Albuterol 2.5 mg Q3HPRN PRN NEB 10/01/24 11:15 Ipratropium [place] 0.5 mg Q6HR NEB 10/01/24 12:00 10/07/24 12:33 0.5 MG Lactulose 30 ml DAILY PRN PO 10/01/24 11:15 Azithromycin 250 ml @ 125 mls/hr DAILY@1400 IV 10/02/24 14:00 10/06/24 14:24 125 MLS/HR Methylprednisolone Sodium Succinate 40 mg DAILY IV 10/03/24 10:00 10/07/24 09:19 40 MG Allopurinol 100 mg DAILY PO 10/02/24 15:04 10/07/24 09:19 100 MG Levetiracetam 1,000 mg BID PO 10/02/24 22:00 10/07/24 09:19 1,000 MG Dextrose 50 ml UD PRN IV 10/02/24 22:00 Diagnostic Test (Pha) 1 strip IQ4HR 10/05/24 04:00 10/07/24 11:38 1 STRIP Insulin Human Regular IQ4HR SC 10/05/24 04:00 10/07/24 11:39 2 UNITS Clonidine HCl 0.2 mg Q6HP PRN PO 10/05/24 13:45 laboratory and microbiology Laboratory Tests 10/07/24 11:19 Test 10/07/24 11:19 Range/Units Serum Glucose 131 H 74-106 mg/dL Assessment/Plan Impression Acute hypoxemic respiratory failure Pneumonia Atelectasis Dementia Patient seen and examined Events Low oxygen requirements On 2 liters nasal cannula No distress Labs and imaging reviewed Management Supplemental oxygen Titrate to maintain sats 90% or above Incentive spirometry Continue antibiotics F/u cultures Bronchodilators Monitor renal function Monitor electrolytes Supplement as needed DVT prophylaxis Dietary Evaluation Review Comments: Monitor pO intake to meet 75% of her needs Expected Outcomes/Goals: gradual wt loss, controlled DM. Plan discussed with: Patient JOVAN RON MD October 07, 2024 15:13
== END 2024-10-07 15:40 | DRG 871 ==
LOC: EDUNIT# 22:09 → EDBD 22:09 → ER 22:09 → OVERFLOW 10-01 02:01 → TELE-CENTR 10-01 13:25
PROVIDERS: ADMIT Family Medicine; ATTEND Family Medicine
PROC: 05HF33Z Insertion of Infusion Device into Left Cephalic Vein, Percutaneous Approach (ICD-10-PCS; principal; 2024-10-02)
PROC: B54NZZA Ultrasonography of Left Upper Extremity Veins, Guidance (ICD-10-PCS; 2024-10-02)
DX: A41.59 Other Gram-negative sepsis (principal); I50.31 Acute diastolic (congestive) heart failure; J15.69 Pneumonia due to other Gram-negative bacteria; J96.01 Acute respiratory failure with hypoxia; J15.9 Unspecified bacterial pneumonia; J44.1 Chronic obstructive pulmonary disease with (acute) exacerbation; D61.818 Other pancytopenia; N39.0 Urinary tract infection, site not specified; F03.93 Unspecified dementia, unspecified severity, with mood disturbance; J44.0 Chronic obstructive pulmonary disease with (acute) lower respiratory infection; Z68.42 Body mass index [BMI] 45.0-49.9, adult; E11.9 Type 2 diabetes mellitus without complications; I11.0 Hypertensive heart disease with heart failure; F32.A Depression, unspecified; R56.9 Unspecified convulsions; E66.01 Morbid (severe) obesity due to excess calories; L85.3 Xerosis cutis; M10.9 Gout, unspecified; Z79.899 Other long term (current) drug therapy; Z79.4 Long term (current) use of insulin; Z79.01 Long term (current) use of anticoagulants; Z80.1 Family history of malignant neoplasm of trachea, bronchus and lung; Z80.49 Family history of malignant neoplasm of other genital organs
CPT/HCPCS: 36415; 71045; 71275; 76604; 78582; 80053; 81001; 82962; 83036; 83605; 83690; 83880; 84484; 85025; 85379; 86803; 87040; 87077; 87081; 87086; 87186; 87340; 87426; 93005; 93970; 94640; G0378; J1100; J1815; J3490